=== PATIENT | male | born 1950 | race Caucasian/White ===

== ENCOUNTER 2016-06-01 02:41 | Inpatient (IN) | payer OTHER ==
[2016-06-01] MEDS ORDERED: ZOFRAN IV PRN (06:03)
[2016-06-01] MEDS ORDERED: TYLENOL PO PRN (06:03)
[2016-06-01 06:12] LABS: MANUAL DIFF NEEDED? NO
[2016-06-01 06:26] LABS: INR 1.07; PROTIME 11.4 Seconds (9.2-11.7); PTT 27.2 Seconds (22.0-36.0)
[2016-06-01 06:32] LABS: URINE CULTURE NEEDED? NO; URINE MICRO REVIEW NEEDED? NO; URINE SOURCE CATH
[2016-06-01 06:34] LABS: BASO% 0.3 % (0.0-0.8); EOS# 0.09 X1000 (0.0-0.7); EOS% 0.8 % (0.0-10.0); HEMATOCRIT 30.6 % (42.0-52.0); HEMOGLOBIN 10.1 g/dL (14.0-18.0); LYMPH# 1.35 X1000 (1.2-3.4); LYMPH% 12.3 % (20.5-51.1); MONO# 0.69 X1000 (0.11-0.59); MONO% 6.3 % (1.7-9.3); MPV 9.8 FL (7.4-10.4); NEUT% 80.3 % (42.2-75.2); PLT 305 X1000 (130-400); RBC 3.06 XMIL (4.7-6.1)
[2016-06-01 06:43] LABS: BILIRUBIN URINE NEGATIVE (NEGATIVE); BLOOD URINE NEGATIVE (NEGATIVE); COLOR STRAW; GLUCOSE URINE 100 mg/dL (NEGATIVE); LEUKOCYTES URINE NEGATIVE (NEGATIVE); NITRITE URINE NEGATIVE (NEGATIVE); PH URINE 7.5; PROTEIN URINE 100 mg/dL (NEGATIVE); SP GRAVITY URINE 1.007; TURBIDITY URINE CLEAR (CLEAR); UROBILINOGEN URINE NORMAL (NORMAL)
[2016-06-01 06:44] LABS: UR EPITHELIAL CELLS <10 /HPF (<10); URINE BACTERIA NEGATIVE /HPF; URINE RBC <10 /HPF (<10); URINE WBC <10 /HPF (<10)
--- NOTE | 2016-06-01 06:44 | EKG Report ---
Test Performed on : 06/01/2016 06:18:01 AM Test Reason : CP,SOB,Elevated Troponin Blood Pressure : / mmHG Vent. Rate : 079 BPM Atrial Rate : 079 BPM P-R Int : 152 ms QRS Dur : 096 ms QT Int : 390 ms P-R-T Axes : 060 035 069 degrees QTc Int : 447 ms Normal sinus rhythm. Possible Left atrial enlargement Nonspecific T wave abnormality Abnormal ECG When compared with ECG of 28-JAN-2015 12:00, Nonspecific T wave abnormality no longer evident in Inferior leads Nonspecific T wave abnormality has replaced inverted T waves in Anterolateral leads Confirmed by Khurram Weaver MD ([id number]) on 06/02/2016 9:38:19 PM
[2016-06-01 06:52] LABS: ALBUMIN 3.9 g/dL (3.5-5.0); POTASSIUM 4.7 mmol/L (3.5-5.1)
[2016-06-01 07:25] LABS: HEMOGLOBIN A1C 5.4 % (4.8-6.0)
--- NOTE | 2016-06-01 07:43 | Diag Imaging Result Document ---
PROCEDURE NAME: CHEST-PORTABLE - 06/01/2016 PORTABLE CHEST X-RAY, 06/01/2016: COMPARISON: 01/31/2015. FINDINGS: Lungs are hyperexpanded today. There may be COPD. There is cardiomegaly and pulmonary vascular congestion. There is some fine interstitial infiltrate compatible with pulmonary edema. IMPRESSION: Pulmonary edema.
[2016-06-01] MEDS: VITAMIN D PO SCH (08:02)
[2016-06-01] MEDS: PRINIVIL PO SCH (08:03)
[2016-06-01] MEDS: VITAMIN C PO SCH (08:03)
[2016-06-01] MEDS: VITAMIN B-12 PO SCH (08:04)
[2016-06-01] MEDS: FISH OIL CONCENTRATE PO SCH (08:04)
[2016-06-01] MEDS: HEPARIN SUBQ SCH ×2 (08:04→20:05)
[2016-06-01] MEDS: FERROUS SULFATE PO SCH (08:04)
[2016-06-01] MEDS: PRILOSEC PO SCH (08:04)
[2016-06-01] MEDS: PHOSLO PO SCH ×3 (08:36→17:20)
[2016-06-01] MEDS: LEXAPRO PO SCH ×2 (08:36→20:06)
[2016-06-01] MEDS ORDERED: HYDROCHLOROTHIAZIDE 12.5 MG PO SCH (09:00)
[2016-06-01] MEDS ORDERED: LEXAPRO PO SCH (09:00)
[2016-06-01] MEDS ORDERED: NS 2,000 ML MISC PRN (10:58)
[2016-06-01] MEDS ORDERED: HEPARIN IV PRN (10:58)
[2016-06-01] MEDS ORDERED: TIGHT: 0.2 ML/HR MISC PRN (10:58)
[2016-06-01] MEDS ORDERED: NS 2,000 ML ONE (11:47)
[2016-06-01] MEDS ORDERED: HEPARIN ONE (11:47)
--- NOTE | 2016-06-01 12:28 | Diag Imaging Result Document ---
PROCEDURE NAME: LUNG SCAN / VQ - 06/01/2016 PULMONARY VENTILATION-PERFUSION SCAN: COMPARISON: Chest x-ray, 06/01/2016. FINDINGS: 38.3 mCi of DTPA was used for inhalation. 5 mCi of MAA was used for injection. There is normal localization of the radiotracers. IMPRESSION: Negative exam.
--- NOTE | 2016-06-01 12:50 | HISTORY AND PHYSICAL ---
PRIMARY CARE PHYSICIAN: Dr. Mccollum REELING OPERATOR: Dr. Pugh CHIEF COMPLAINT: Shortness of breath. HISTORY OF PRESENT ILLNESS: Mr. Urrutia is a 66-year-old male with a history of end stage renal disease followed by Dr. Pugh. He receives dialysis on Tuesdays and only. He also has a history of diabetes mellitus type 2, hypertension, hyperlipidemia, gastroesophageal reflux disease, DVT and problems with blood clots in his fistula. He presented to the ER at [facility] on 05/31/2016 at 2300 with complaint of sudden onset of shortness of breath. The patient states that during the day, he felt okay other than that morning when he woke up he did not feel as good as he normally does. The patient states this is not uncommon due to his end stage renal disease. The patient did report, though, that he was out at [employer] all day walking around and was very tired and sore secondary to this. He denies any recent medication changes. He reports a sudden onset of shortness of breath with diaphoresis. He denied any chest pain but did report it felt like someone was sitting on his chest, as though he could not take a big enough breath. He did report a sudden onset of a cough with this shortness of breath as well. It was nonproductive, though this has since subsided since arriving to [facility]. At the ER at [facility], they did report the patient arrived in moderate distress with dyspnea. Initial vital signs were heart rate of 72, respirations 32, blood pressure 217/99 with oxygen saturation of 96%. I did do a chest x-ray which showed interstitial pulmonary edema. EKG at [facility] showed sinus tachycardia with a possible left atrial enlargement with a rate of 101, QTC was 495. His ProBNP was elevated to 18,632. They did treat him with 80 mg of Lasix IV, sublingual nitroglycerin and 20 mg of labetalol IV. Dr. Flores, the ER physician at [facility], did contact Dr. Pugh and notified him of the patient's condition, and Dr. Pugh requested the patient be admitted at [facility] for further treatment and evaluation. Upon my assessment once the patient had arrived at [facility], he seems to be doing much better. The patient was lying flat in the bed with his head mildly elevated and was not in any respiratory distress. He reported no feeling of shortness of breath at this time as well as no chest pain. He did report that he feels much better. At this time, he denies any headache, dizziness, chest pain, shortness of breath, abdominal pain. He did report earlier when he had his initial episode of shortness of breath, he was nauseated. He denies any vomiting, diarrhea or constipation. Denies any bloody or dark-colored stools. The patient does report that he occasionally has dysuria and has some problems with frequent urinary tract infections, though has not had one in the past few weeks. He denies any pain, swelling, numbness or tingling in extremities. The patient reports that he does still produce some urine. The patient has been placed for inpatient admission, and we will obtain a consult with Dr. Pugh. REVIEW OF SYSTEMS: A 14-point review of systems was conducted with the patient, and all were negative except for pertinent positives mentioned in the above HPI. PAST MEDICAL HISTORY: 1. End stage renal disease on hemodialysis on Tuesdays and . 2. Diabetes mellitus type 2, insulin dependent. 3. Hypertension. 4. Hyperlipidemia. 5. Gastroesophageal reflux disease. 6. Depression. 7. Osteoarthritis of his right hip. 8. Normocytic anemia. 9. Peripheral artery disease. 10.History of DVT and frequent problems with reported blood clots in his fistula. PAST SURGICAL HISTORY: 1. Placement of a left AV fistula. 2. A total of 3 surgeries for a right hip fracture, one for hardware placement, a second for hardware removal and then a third for a total right hip replacement. SOCIAL HISTORY: The patient reports that he is a former smoker. He quit smoking in 1999. He did smoke 1 to 2 packs per day for approximately 20 years. He denies any alcohol or illicit drug use. He is to his of 46 years who was at bedside at the time of my examination. FAMILY HISTORY: Positive for his father having mesothelioma for which he from. His mother is still living and has a history of heart disease and macular degeneration. He has no siblings. ALLERGIES: The patient reports no known allergies. HOME MEDICATIONS: 1. Vitamin C with florencio hips 1000 mg p.o. daily. 2. Vitamin B12 1000 mg p.o. daily. 3. Vitamin D3 1000 units p.o. daily. 4. Fish oil 1200 mg p.o. daily. 5. Lexapro 20 mg p.o. b.i.d. 6. Ferrous sulfate 325 mg p.o. daily. 7. Lantus 22 units subcutaneously nightly at bedtime. 8. Omeprazole 40 mg p.o. daily. 9. PhosLo 1334 mg p.o. before meals. 10.Lisinopril 40 mg p.o. daily. 11.Simvastatin 40 mg p.o. nightly at bedtime. 12.Hytrin 10 mg p.o. nightly at bedtime. 13.Hydrochlorothiazide 12.5 mg p.o. daily. DIAGNOSTIC DATA: The following laboratory results were obtained in the ER at [facility] prior to the patient's arrival at approximately 2330. White blood cell count was 14, hemoglobin 10, hematocrit 31, platelet count 314. D-dimer was 790. Sodium was 139, potassium 4.8, chloride 94, bicarb 25, glucose 141, BUN was 59, creatinine 9.2, GFR of 6. Liver function tests were within normal limits. Calcium 9.2, albumin 4.2. ProBNP was 18,632. CK was 79, CKMB was 2.84, troponin was 0.049. We did repeat an EKG upon the patient's arrival which showed normal sinus rhythm with a possible left atrial enlargement and a nonspecific T wave abnormality at a rate of 79, QTC was 447. Chest x-ray does show pulmonary vascular congestion, though we are awaiting the official radiology overread. Repeat labs upon the patient's arrival, white blood cell count has reduced to 10.9. PT is 11.4, INR is 1.07, PTT is 27.2. Urinalysis obtained via cath was positive for protein and glucose, negative for blood, nitrites, leukocytes, white blood cells or bacteria. PHYSICAL EXAMINATION: VITAL SIGNS: Temperature is 97.4, heart rate 76, respirations 20, blood pressure 176/79, oxygen saturation is 95% on nasal cannula at 3 L. GENERAL: Mr. Urrutia is a well-nourished, well-developed, pleasant 66-year-old male who is resting in the inpatient bed with no acute distress, was awake and alert and able to answer all questions appropriately. HEENT: Head is atraumatic and normocephalic. Pupils are equal, round and reactive to light, were 3 mm bilaterally and brisk. Conjunctivae were slightly pale. Oral mucosa is moist. Oropharynx is clear. NECK: Supple. Trachea is midline. No JVD noted. No hepatojugular reflux noted. No carotic bruits noted upon auscultation bilaterally. CARDIOVASCULAR: The patient has normal S1 and S2. There is a slight murmur noted, though no other gallops, clicks or rubs identified. PULMONARY: The patient has symmetrical chest expansion bilaterally. Lung sounds in bilateral full ramirez are diminished, and the patient has crackles noted in bilateral lower lung ramirez. ABDOMEN: Soft, though does appear to be slightly firm/tight feeling. The patient reports it is not any more distended than his normal, though it does appear to have some distention present. Bowel sounds were present in all 4 quadrants and were normoactive. The patient denied any tenderness upon palpation. EXTREMITIES: No cyanosis, clubbing or edema noted. Pulse, motor and sensory were intact in all extremities as well. Pedal pulses were 3+ bilaterally. INTEGUMENTARY: The patient's skin is pink, warm, dry and intact. No lesions or sores noted. NEUROLOGICAL: The patient is alert and oriented to person, place, time and situation. Cranial nerves II through XII are grossly intact. IMPRESSION: 1. Fluid volume overload. For this, the patient was initially given 80 mg of Lasix in the ER at [facility]. Since that time, he has had a measured output of approximately 290 mL since his arrival to [facility], though the patient reports that he put out 300 mL prior to his arrival here. He is feeling much better and is not in any respiratory distress at this time and is maintaining adequate oxygen saturations. We will wait for Dr. Pugh to evaluate the patient and await his further recommendations for treatment. We will continue to follow this closely. 2. Pulmonary edema. This is likely secondary to his volume overload. We will continue with treatment as number 1 and continue to follow. 3. End stage renal disease on hemodialysis. Dr. Pugh has been consulted as previously mentioned, and we are awaiting his evaluation. We will continue to follow. 4. Elevated D-dimer. We have placed a VQ lung scan order in for this morning and will await those results and continue to follow as well. 5. Hypertension. We will continue with the patient's medication of lisinopril 40 mg p.o. daily. 6. Diabetes mellitus type 2. Continue with his home medication of Lantus 22 units subcutaneously nightly at bedtime and will do fingerstick blood sugars morning and night. 7. Hyperlipidemia. We will continue with his Zocor 40 mg p.o. nightly at bedtime. 8. Gastroesophageal reflux disease. For this as well as GI prophylaxis, we will continue with omeprazole 40 mg p.o. daily. The patient will be placed on the Medical Floor with telemetry. He will have vital signs q.4. DVT prophylaxis will be provided with heparin 5000 units subcutaneously q.12 hours. We will do strict intake and output q.8. He will be on a diabetic diet. The patient denies any previous history of congestive heart failure, though given his reported clinical symptoms, we have placed an order for an echocardiogram to be performed to rule out any further cardiac involvement. We will also do a series of cardiac enzymes as well. The patient's troponin was elevated, though this could likely be secondary to his renal function, though we will continue to trend these and monitor this closely. Further orders and recommendations pending hospital course, diagnostic studies and physician evaluation. Dictated by LUL Braswell for Michele Cyr MD
--- NOTE | 2016-06-01 15:42 | ECHO REPORT ---
ORDER DATE: 06/01/2016 INDICATION: Pulmonary edema. Diabetes. Hypertension. End-stage renal disease. FINDINGS: 1. Right atrium is normal in size. 2. Mild to moderate tricuspid regurgitation. RV systolic pressure of 58. 3. Normal RV size and systolic function. 4. Trace pulmonic insufficiency. 5. Moderate left atrial enlargement at 5.3 cm. 6. No mitral valve prolapse. Mild mitral regurgitation. 7. Normal LV size, end-diastolic dimension of 4.8. Mild left ventricular hypertrophy with a posterior and interventricular septal wall thickness of 1.4 cm each. Normal LV systolic function. Calculated EF is 60% with normal wall motion. 8. Aortic valve opens well and appears trileaflet. No evidence of stenosis or insufficiency. 9. Aorta appears normal in visualized segments. 10. No pericardial effusion seen.
[2016-06-01] MEDS: APRESOLINE PO SCH ×2 (17:10→20:05)
--- NOTE | 2016-06-01 18:05 | CONSULTATION ---
DATE OF CONSULTATION: 06/01/2016 REASON FOR CONSULTATION: ESRD management, fluid volume status. CONSULTING PHYSICIAN: Dr. Crump. HISTORY OF PRESENT ILLNESS: This is a 66-year-old gentleman well known to our service for ESRD management who routinely dialyzes 2 days a week on Tuesdays and at the [facility]. He has been on this schedule for many years. He has never had issues with fluid volumes before and routinely has adequate urine output along with adequately controlled lab values. The patient states that on the day of admission he had a rather sudden onset of shortness of breath and presented to [facility] emergency room. He was found to be in pulmonary edema was given some Lasix and transferred over to [facility] for further workup and treatment. He states that he never really had any increase in urine output. His blood pressure was quite high on admission. He was started on labetalol and he states that after dose of that his urine output picked up appreciably. He states that today he has some shortness of breath but really no swelling. He states that he never monitors his fluid intake and has never had issues with this before. He denies any current chest pain, any current shortness of breath, any dizziness, headache, change in appetite, nausea, vomiting, change in bowel or bladder. PAST MEDICAL HISTORY: End-stage renal disease on hemodialysis Wednesday, schedule, insulin- dependent diabetes, hypertension, dyslipidemia, allergic rhinitis, GERD, anemia secondary to ESRD, hyperparathyroidism and hyperphosphatemia. PAST SURGICAL HISTORY: Previous hip fracture with percutaneous pinning, he has tunneled dialysis catheter previously, he has AV fistula. ALLERGIES: No known drug allergies. HOME MEDICATIONS: Loratadine, fish oil, vitamin C, iron, vitamin B12, vitamin D3, Hytrin, omeprazole, calcium carbonate D3, Zocor, Prinivil, Lantus, NovoLog, Cefzil, Lexapro, calcium acetate, hydrochlorothiazide. FAMILY HISTORY: Noncontributory. SOCIAL HISTORY: He is , he has an attentive . He is a previous smoker. No ETOH or illicit drug use. REVIEW OF SYSTEMS: With pertinent positives noted above in the HPI. EXAM: Vital Signs: Temperature 98.2 degrees, pulse 80, respiratory rate 18, blood pressure 160/80, intake not measured, output 245 mL. General: This is a middle-aged gentleman resting in bed. He is awake, alert. He is in no acute distress. HEENT: Normocephalic atraumatic. Oral mucosa is moist. SOILA, EOMI. Neck: Supple. There is perhaps slight JVD in a reclined position. Cardiovascular: Reveals a regular rate and rhythm with a murmur. Pulmonary: He has equal excursion. He has no increased work of breathing. Abdomen: Distended and soft with positive bowel sounds. : Not inspected. He is voiding. Extremities: There is no pretibial edema. No clubbing or cyanosis. Extremities are warm with positive pulses. Integumentary : Skin is warm and dry. No rash or lesion. Neuro: Grossly nonfocal. LAB DATA: WBC of 10.9, hemoglobin 10.1, platelets 305,000. Sodium 137, potassium 4.7, CO2 21, BUN 61, creatinine 8.8, phosphorus 7, calcium 9.0 and albumin 3.9. RADIOLOGY: Chest x-ray with pulmonary edema. ASSESSMENT AND PLAN: 1. End-stage renal disease management. Will plan to dialyze him today secondary to the pulmonary edema noted on chest x-ray, shortness of breath. Is unclear whether this is secondary to fluid volumes or pulmonary hypertension or diastolic dysfunction. He does have an echocardiogram that is pending resulting. The patient understands will plan to dialyze him today likely tomorrow, depending on what his echocardiogram results are he may have to transition to a 3 day a week dialysis schedule. The patient understands this and is in agreement. 2. Electrolytes, acid-base balance, anemia. These are all stable. 3. Fluid volume. On clinical exam he really does not appear grossly fluid overloaded except for some distended abdomen that he is this is there chronically. 4. Hypertension may be contributing to his pulmonary edema. Continue with current therapy. Seen, data reviewed, discussed with Hesham Newell on 06/01/15. I agree with the above assessment and plan of care. rg Dictated by LUL Gracia for Horacio Pugh MD [facility]
[2016-06-01] MEDS ORDERED: LANTUS SUBQ SCH (21:00)
[2016-06-01] MEDS ORDERED: HYTRIN PO SCH (21:00)
[2016-06-01] MEDS ORDERED: ZOCOR PO SCH (21:00)
[2016-06-02] MEDS: APRESOLINE PO SCH ×2 (05:56→12:31)
[2016-06-02] MEDS: PHOSLO PO SCH ×3 (05:56→10:31)
[2016-06-02] MEDS ORDERED: HEPARIN ONE (07:59)
[2016-06-02] MEDS ORDERED: NS 2,000 ML ONE (07:59)
[2016-06-02] MEDS: PRINIVIL PO SCH (08:54)
[2016-06-02] MEDS: VITAMIN B-12 PO SCH (08:55)
[2016-06-02] MEDS: FERROUS SULFATE PO SCH (08:55)
[2016-06-02] MEDS: PRILOSEC PO SCH (08:56)
[2016-06-02] MEDS: VITAMIN D PO SCH (08:56)
[2016-06-02] MEDS: HEPARIN SUBQ SCH (08:57)
[2016-06-02] MEDS: FISH OIL CONCENTRATE PO SCH (08:57)
[2016-06-02] MEDS: VITAMIN C PO SCH (08:57)
[2016-06-02] MEDS: LEXAPRO PO SCH (08:58)
--- NOTE | 2016-06-02 10:25 | PROGRESS NOTE ---
DATE: 06/02/2016 SUBJECTIVE: Mr. Urrutia is breathing better. Feeling much better. Was eating almost all of his breakfast. No trouble breathing at this time. No chest pain. OBJECTIVE: Vital signs: Temperature 98.8 degrees, remains afebrile, pulse 86, respirations 18, blood pressure 135/58. HEENT: Pupils are equal, round. Neck: CVP less than 6 cm. Lungs: Clear in all lung ramirez. Cardiovascular: Regular rhythm and rate without murmur or S3. Abdomen: Soft. Skin: Warm and dry. Intake and output: Good urine output, 4500 mL. LAB: White count 10,990, hematocrit 30, platelet count 305,000. Blood sugar 240 and 108. Echocardiogram done yesterday: Right atrium normal size. Mild to moderate tricuspid regurgitation. RV systolic pressure is 58. Normal right ventricular size and systolic function. Trace pulmonic insufficiency. Mild left atrial enlargement, 5.3 cm. No mitral valve prolapse. Mild mitral regurgitation. Normal left ventricular size. Left ventricular hypertrophy with posterior intraventricular septal wall thickness 1.4 cm each. Normal LV systolic function. Calculated EF was 60%. No pericardial effusion. Aortic valve unremarkable. V/Q scan done on 06/01: Negative exam. ASSESSMENT AND PLAN: 1. Dr. Pugh was consulted. Appears to have end-stage renal disease. Management, planned to dialyze him. Yesterday was dialyzed secondary to pulmonary edema on chest x-ray and shortness of breath. Unclear whether secondary to fluid volume of pulmonary hypertension, diastolic dysfunction. He does have an echocardiogram that shows normal left ventricular function. 2. Electrolytes, acid-base balance. Stable. 3. Volume status. Appears better. 4. Hypertension. Blood pressure controlled. Note the V/Q scan was negative and he has good left ventricular performance. So discuss with Dr. Pugh and see what the plan is. I am sure he will need more dialysis. I think we need to schedule him and set him up for outpatient.
[2016-06-02 15:36] VITALS: BP 163/62
--- NOTE | 2016-06-02 16:06 | CONSULTATION ---
DATE OF CONSULTATION: 06/02/2016 INDICATION: Shortness of breath. HISTORY OF PRESENT ILLNESS: Mr. Urrutia is a 66-year-old white male with a history of end-stage renal disease followed by Dr. Pugh. He receives hemodialysis on Tuesdays and only. He had a relatively acute onset of shortness of breath that began Wednesday. Prior to that he was in his usual state of health. He reports waking up, feeling well and had no difficulty on Wednesday when he was out watching some ball games. He did quite a bit walking that day without any difficulties. No recent fevers. No coughs. He denies any episodes of orthopnea. He reported that he got up from a couch, walked around a little bit in the house and when he got back he got extremely short of breath and had some heaviness in his chest. This did not resolve and he since reported to the emergency room. He was seen. EKG was unremarkable showing sinus rhythm. No evidence of ischemic changes. His cardiac enzymes have been normal. He did have evidence for pulmonary edema on his chest x-ray and he was set up for hemodialysis. Reportedly he was at his dry weight here but he has had his dry weight dropped and has had symptomatic improvement. The patient has not had these episodes before. PAST MEDICAL HISTORY: 1. Significant for coronary disease. He had a cardiac cath performed in [address] Mon[place]. At that time he had a normal left main. Left anterior descending had moderate diffuse disease. Left circumflex had moderate diffuse disease. Right coronary had moderate diffuse disease. The EF on that study was 50-60 with a LVEDP of 21. 2. End-stage renal disease with hemodialysis on Tuesdays and . Followed by Dr. Pugh. 3. Type 2 diabetes. 4. Hypertension. 5. Hyperlipidemia. 6. Reflux disease. 7. Osteoarthritis. 8. Peripheral arterial disease. FAMILY HISTORY: Significant for hypertension. SOCIAL HISTORY: He used to smoke 1-2 packs per day for around 20 years. He quit in 1999. He denies any alcohol or illicit drugs. REVIEW OF SYSTEMS: A 10 system review of systems is negative except for those things mentioned in HPI. PHYSICAL EXAMINATION: The patient is afebrile. Heart rate of 84, blood pressure 163/62.General: He is in no acute distress. HEENT: Oropharynx is moist. He has normal dentition. His eye examination shows pink conjunctivae, white sclerae. Neck: Examination shows no obvious thyromegaly or thyroid tenderness. Cardiovascular: He is in a regular rate and rhythm. He has no obvious murmurs. He does have a prominent AV fistula murmur that is heard throughout the precordium. He has no lower extremity edema. He has warm and well perfused lower extremities. Chest: Exam sounds clear to auscultation bilaterally. He has no increased work of breathing. Abdomen: Soft, nontender, nondistended. He has no obvious organomegaly. Skin Exam: Warm and dry throughout without any rashes. Neurological: Moving all extremities well. Cranial nerves 2- 12 are intact without any sensation deficits. Psychiatric: Alert, oriented, pleasant. He has normal mood and affect. Echocardiogram from yesterday shows moderate TR, moderate left atrial enlargement. Mild bordering on moderate left ventricular hypertrophy with an EF of 60%. Normal wall motion. His chest x-ray here demonstrated pulmonary edema. He had a V/Q scan performed as well that demonstrated a negative study. He had an EKG performed that showed sinus rhythm. EKG shows sinus rhythm, 79 beats per minute. No evidence of ischemic changes. No evidence of old infarct. His laboratory data shows white count of 10.9, hematocrit is 30, platelet count is 305,000. His INR is 1.07. Sodium 137, potassium 4.7. BUN is 61, creatinine is 8.8. Cardiac enzymes were negative times multiple sets with normal CK. ASSESSMENT: 1. Pulmonary edema possibly nephrogenic or cardiogenic in etiology. 2. History of moderate coronary disease previously by cardiac catheterization. PLAN: Patient is symptomatically better with adjustment of his dialysis. We will plan on myocardial perfusion imaging but this can be performed as an outpatient. I will make arrangements for him to have that study done hopefully this Wednesday. We will follow up on the results of that. Further recommendations to follow as an outpatient. The patient is comfortable with that as is the rest of the medical team.
--- NOTE | 2016-06-02 17:30 | PROGRESS NOTE ---
DATE: 06/02/2016 TIMES SEEN: 0815. SUBJECTIVE: Patient is sitting up in bed. He states that his breathing has significantly improved from previous. OBJECTIVE: Vital Signs: Temperature 98.1 degrees, pulse 84, respiratory rate 18, blood pressure 163/62. Input and output: Intake 790 mL. Output 4.5 L. General: This is a middle-aged gentleman sitting up in bed. Awake alert, oriented. No acute distress. HEENT : Normocephalic, atraumatic. Oral mucosa moist. SOILA. Neck: Supple. No JVD. Cardiovascular : Regular rate and rhythm. Systolic murmur. Pulmonary: Equal excursion. He has no increased work of breathing. He is clear bilaterally on room air. Abdomen: Soft, with positive bowel sounds. : Not inspected. He continues to void. Extremities: No pretibial edema. No clubbing, cyanosis. He is ambulatory. Integumentary: Skin is warm and dry without rash or lesion. LABORATORY DATA: I have no new labs this morning. ASSESSMENT AND PLAN: 1. End-stage renal disease management. The plan was to dialyze him again today to optimize his fluid balance. We discussed with the patient that he may have to increase his dialysis to 3 times a week. Patient is in agreement. 2. Electrolytes, acid-base balance. These are all stable yesterday prior to dialysis. If he is in the hospital in the morning, we will plan a labs and appropriate dialysis bath. 3. Fluid volume. He is much improved today. 4. Hypertension. Controlled. Seen, data reviewed, discussed with Hesham Newell on 06/02/16. I agree with the above assessment and plan of care. rg Dictated by LUL Gracia for Horacio Pugh MD [facility]ITAL[facility]
--- NOTE | 2016-06-02 18:14 | DISCHARGE SUMMARY ---
ADMISSION DATE: 06/01/2016 DISCHARGE DATE: 06/02/2016 HOSPITAL COURSE: This is a 66-year-old who is followed by Dr. Pugh for chronic kidney disease. He has a history of end-stage renal disease and receives dialysis Tuesdays, , and Saturdays. History of diabetes mellitus type 2, hypertension, hyperlipidemia, gastroesophageal reflux disease, DVT, problem with blood clots and a fistula in the past. He presented to the emergency room at [facility] on 05/31/2016 at 23:00 complaining of sudden onset of shortness of breath. The patient states that during the day he felt okay. In the morning he awoke and had a little shortness of breath. He woke up and did not feel as good as he normally does. This is not uncommon by his report because of end-stage renal disease. He did report that [place] [employer] [place]. He was very tired and sore secondary to the day before. He denies any recent medication changes but he developed sudden onset of shortness of breath and diaphoresis. He denied any chest pain but did report that he felt like something was sitting on his chest and really could not take a deep enough breath. He did report sudden onset of cough and shortness of breath, and so came to the emergency room. On arrival to the emergency room, he is in moderate distress with dyspnea. Vital signs were pulse 72, respirations 32, blood pressure 217/99, O2 saturation 96%. Chest x-ray showed interstitial pulmonary edema. EKG from [facility] shows tachycardia suggestive of left atrial enlargement, rate was 101, QTc was 495. His proBNP was elevated at 18,000. I gave him 80 mg of Lasix, sublingual nitroglycerin, 20 mg labetalol and he was sent here to [facility]. On arrival to [facility] he seemed to be doing much better. He was lying flat on the bed and was mildly elevated. He was not in any respiratory distress. He felt like he had mild volume overload. Dr. Pugh did dialyze him. It felt like his volume status was dry weight but still a little concerned about what happened, whether it was just a little bit of diastolic dysfunction or whether he had some type of mild flash edema. He feels much better and wants to go home. Dr. Salvador Lind saw him and will plan on doing an outpatient nuclear GXT, and we will continue his current medications. We will have him get some ambulatory blood pressures. Of course he will follow up with Dr. Pugh as well.
[2016-06-03 11:09] LABS: HEPATITIS PROFILE ACUTE SEE COMMENTS (())
== END 2016-06-02 16:53 | disposition home or self-care (01) | DRG 640 ==
LOC: 4N 02:41
PROVIDERS: ATTEND Emergency Medicine
PROC: 5A1D00Z (ICD-10-PCS; principal; 2016-06-01)
DX: E87.70 Fluid overload, unspecified (principal); N18.6 End stage renal disease; I12.0 Hypertensive chronic kidney disease with stage 5 chronic kidney disease or end stage renal disease; E11.22 Type 2 diabetes mellitus with diabetic chronic kidney disease; Z99.2 Dependence on renal dialysis; E78.5 Hyperlipidemia, unspecified; K21.9 Gastro-esophageal reflux disease without esophagitis; I25.10 Atherosclerotic heart disease of native coronary artery without angina pectoris; F32.9 Major depressive disorder, single episode, unspecified; R79.1 Abnormal coagulation profile; E21.3 Hyperparathyroidism, unspecified; E83.39 Other disorders of phosphorus metabolism; D63.1 Anemia in chronic kidney disease; J30.9 Allergic rhinitis, unspecified; M16.11 Unilateral primary osteoarthritis, right hip; E11.51 Type 2 diabetes mellitus with diabetic peripheral angiopathy without gangrene; Z96.641 Presence of right artificial hip joint; Z79.899 Other long term (current) drug therapy; Z79.4 Long term (current) use of insulin; Z86.718 Personal history of other venous thrombosis and embolism; Z87.891 Personal history of nicotine dependence; Z80.1 Family history of malignant neoplasm of trachea, bronchus and lung; Z82.49 Family history of ischemic heart disease and other diseases of the circulatory system
CPT/HCPCS: 71010; 78582; 80069; 80074; 81001; 82550; 82948; 83036; 84484; 85025; 85610; 85730; 93005; 93010; 93306; 94761; A9539; A9540; J1644; J2405; J7030

== ENCOUNTER 2016-08-03 13:34 | Inpatient (IN) ==
[2016-08-03 16:09] LABS: MANUAL DIFF NEEDED? NO
[2016-08-03 16:12] LABS: BASO% 0.4 % (0.0-0.8); EOS# 0.21 X1000 (0.0-0.7); EOS% 2.6 % (0.0-10.0); HEMATOCRIT 30.8 % (42.0-52.0); HEMOGLOBIN 10.5 g/dL (14.0-18.0); IMM GRAN# 0.02 X1000 (0.0-0.04); IMM GRAN% 0.3 % (0.0-0.5); LYMPH# 1.28 X1000 (1.2-3.4); LYMPH% 16.1 % (20.5-51.1); MCH 32.8 PG (27-31); MCHC 34.1 g/dL (33-37); MCV 96.3 FL (81-99); MONO# 0.56 X1000 (0.11-0.59); MPV 9.5 FL (7.4-10.4); NEUT% 73.6 % (42.2-75.2); PLT 275 X1000 (130-400)
[2016-08-03 16:48] LABS: ALBUMIN 3.9 g/dL (3.5-5.0); CALCIUM 9.1 mg/dL (8.8-10.2); POTASSIUM 5.6 mmol/L (3.5-5.1); TOTAL BILIRUBIN 0.25 mg/dL (0.20-1.00); TOTAL PROTEIN 6.9 g/dL (6.3-8.3)
[2016-08-03] MEDS ORDERED: APRESOLINE IV ONE (17:48)
--- NOTE | 2016-08-03 17:54 | PROVIDER DOCUMENTATION ---
This chart was entered by Dorene Jones Scribe, acting as scribe for Ricardo Simms MD. HPI-General Adult - General Chief Complaint: Altered Mental Status Stated Complaint: DISORIENTED Time Seen by Provider: 08/03/16 15:11 Source: patient, family Allergies/Adverse Reactions: Patient Allergies Allergy/AdvReac Type Severity Reaction Status Date / Time No Known Allergies Allergy Verified 08/03/16 15:59 Home Medications: Home Medication List Medication Instructions Recorded Confirmed Last Taken Type Ascorbic Acid [Vitamin C] 500 mg PO DAILY 06/14/14 08/03/16 08/03/16 07:00 History Fish Oil/Dha/Epa [Fish Oil 1,200 1 each PO DAILY 06/14/14 08/03/16 08/03/16 07: 00 History mg Fish Oil] Insulin Glargine [Lantus] 22 unit SUBQ QHS 06/14/14 08/03/16 08/02/16 20:00 History Iron,Carbonyl [Iron Chews] 65 mg PO DAILY 06/14/14 08/03/16 08/03/16 07:00 History LISINOpril [Prinivil] 40 mg PO DAILY 06/14/14 08/03/16 08/03/16 07:00 History Omeprazole 40 mg PO DAILY 06/14/14 08/03/16 08/03/16 07:00 History SIMVAstatin [Zocor] 40 mg PO QHS 06/14/14 08/03/16 08/02/16 20:00 History Terazosin [Hytrin] 10 mg PO HS 06/14/14 08/03/16 08/02/16 20:00 History Calcium Acetate 1,334 mg PO AC 06/01/16 08/03/16 08/03/16 07:00 History Cholecalciferol (Vitamin D3) 1,000 unit PO DAILY 06/01/16 08/03/16 08/03/16 07: 00 History [Vitamin D3] Cyanocobalamin (Vitamin B-12) 1,000 mcg PO DAILY 06/01/16 08/03/16 08/03/16 07: 00 History [Vitamin B-12] Escitalopram [Lexapro] 20 mg PO BID 06/01/16 08/03/16 08/03/16 07:00 History Ferrous Sulfate 325 mg PO DAILY 06/01/16 08/03/16 08/03/16 07:00 History Hydrochlorothiazide 12.5 mg PO DAILY 06/01/16 08/03/16 08/03/16 07:00 History Vian-3/Dha/Epa/Fish Oil [Fish Oil 1 each PO DAILY 06/01/16 08/03/16 08/03/16 07 :00 History EC 1,200 mg Softgel] Guaifenesin/Dm [Bidex Dm] 1 each PO BID 08/03/16 08/03/16 08/03/16 07:00 History - History of Present Illness -Gen Adult Nature of Presenting Problems: Pt is 66 y/o M presents to the ED with weakness. Pt states did not receive his dialysis. Pt states has not had dialysis since Wednesday. Pt states N and V. Pt denies F. Pt states talked to Dr. Parker about weakness and Dr. Parker stated go to the ED Location of Pain/Injury: reports: generalized Pain Radiation: reports: no radiation Quality of Pain: reports: aching Severity: reports: mild Onset/Duration: reports: this morning Timing: reports: still present, intermittent Context/Activities at Onset: reports: light activity Modifying Factors: improves with: nothing Associated Symptoms: reports: nausea, vomiting, weakness. denies: anxiety, arm pain, back/neck pain, chest pain, constipation, cough, diaphoresis, diarrhea, dizziness, EENT symptoms, fatigue, fever/chills, genitourinary problems, headaches, heartburn, joint pain, loss of appetite, malaise, muscle aches, sinus congestion/drainage, rash, seizure, shortness of breath, sensory/motor loss, pain with inspiration, swelling/mass in abdomen, syncope, trouble walking Similar Symptoms Previously?: Yes Recently seen or treated by another doctor?: No Review of Systems - Adult - REVIEW OF SYSTEMS - ADULT Constitutional: reports: no symptoms reported. denies: chills, fever Eyes: reports: no symptoms reported. denies: discharge, blurred vision Ears, Nose, Mouth & Throat: reports: no symptoms reported. denies: ear pain, sinus problem Cardiovascular: reports: no symptoms reported. denies: chest pain, irregular heart rate Respiratory: reports: no symptoms reported Gastrointestinal: reports: nausea, vomiting. denies: abdominal pain, diarrhea Genitourinary: reports: no symptoms reported Musculoskeletal: reports: muscle weakness. denies: bone pain, joint pain, neck pain Integumentary: reports: no symptoms reported Neurological: reports: no symptoms reported Psychiatric: reports: no symptoms reported Endocrine: reports: no symptoms reported Hematologic/Lymphatic: reports: no symptoms reported Allergic/Immunologic: reports: no symptoms reported All Other Systems: Reviewed and Negative Past History - Adult - PAST MEDICAL HISTORY-ADULT Review of Records: reports: Nursing Assessment Review, Medications Reviewed, Social history reviewed & non-contributory. Major Childhood Illnesses: reports: denies history Cardiovascular: reports: HTN Respiratory: reports: denies history Gastrointestinal: reports: denies history Obstetrical/Gynecological: reports: denies history Genitourinary: reports: dialysis, kidney disease Musculoskeletal: reports: denies history Neurological: reports: denies history Endocrine/Immune: reports: Diabetes Other Conditions: reports: denies history - PRIOR SURGERIES/PROCEDURES Surgical/Procedure History: reports: reviewed, not pertinent - IMMUNIZATION STATUS Childhood Immunizations: See Nurse Assessment Flu Vaccine: See Nurse Assessment - FAMILY HISTORY Family History: reviewed, not pertinent - SOCIAL HISTORY Smoking: quit less than 1 year, cigarettes Substance Use: denies Living Situation: family Physical Exam-General - PHYSICAL EXAM-ADULT Initial Vital Signs Reviewed: Yes - CONSTITUTIONAL General Appearance: appears well, alert, no apparent distress - EYES Eyes: PERRL/EOMI, pink conjunctivae - HEAD, EARS, NOSE, MOUTH & THROAT HENMT: normocephalic/atraumatic, moist mucous membranes, normal ENT inspection, TMs normal, pharynx normal - NECK Neck: non-tender, full range of motion, supple, normal inspection - RESPIRATORY Respiratory: chest non-tender, lungs clear, normal breath sounds, no pleuratic chest pain, no respiratory distress, no accessory muscle use - CARDIOVASCULAR Cardiovascular: normal peripheral pulses, regular rate, rhythm, no edema, no gallop, no JVD, no murmur - GASTROINTESTINAL (ABDOMEN) Abdominal Exam: normal bowel sounds, non tender, soft, no organomegaly, no pulsatile mass - LYMPHATIC Lymphatic: no adenopathy - MUSCULOSKELETAL Back Exam: normal inspection, no CVA tenderness, no vertebral tenderness Extremity: normal range of motion, non-tender, normal gait, normal inspection, no pedal edema, no calf tenderness, normal capillary refill - SKIN Integumentary: normal color, normal turgor, warm/dry - NEUROLOGIC Neurologic: grossly normal - PSYCHIATRIC Psych/Mental Status: normal mood/affect, oriented x 3 Progress - PLAN OF CARE/RESULTS Progress/Plan/Lab Results: Vital Signs - 8 hr 08/03/16 13:53 Temperature 98.2 F Pulse Rate 85 Respiratory Rate 20 Blood Pressure 213/70 O2 Sat by Pulse Oximetry 99 Orders Category Date Time Status FSBS/Accucheck Result NOW Care 08/03/16 15:13 Active IV [Saline Loc] NOW Care 08/03/16 15:13 Active CBC WITH ELECTRONIC DIFF [HEME] Stat Lab 08/03/16 15:12 Uncollected CMP [COMPREHENSIVE METABOLIC PANEL] [CHEM] Stat Lab 08/03/16 15:13 Uncollected Result Diagrams: 08/03/16 16:08 08/03/16 16:08 - REASSESSMENT Reassessment #1 Time Reassessed: 17:51 Status: improving (pt feeling better and the mental staus change is less marked. he has vomited his bp meds today.) - CONSULTS/PCP/HOSPITALIST Notification #1 *Consult/PCP/Hospitalist*: Dr. Mcrae Time Discussed: 17:49 Reason/Comments: Dr. Simms consults Dr. Mcrae about admit of PT Consult Disposition: Admit #2 Consult: Dr Bazan Time Discussed: 17:25 (he wants him admitted and will dialyze in am) Departure - Departure Time of Disposition Decision: 17:50 DIAGNOSIS: Change in mental status CRF (chronic renal failure) Qualifiers: Chronic kidney disease stage: stage 4 (severe) Qualified Code(s): N18.4 - Chronic kidney disease, stage 4 (severe) Disposition: ADMITTED INPATIENT 09 Certified Medical Emergency: Emergent Condition: Stable Referrals and Follow-Ups: Froylan Mccollum [Primary Care Provider] - - Critical Care Note This patient required my direct & personal management of CC.: No This chart was documented by the indicated scribe, (Dorene Jones Scribe) and accurately reflects the services I performed and decisions made by me, Ricardo Simms MD, as attested by the provider's signature.
[2016-08-03 21:50] LABS: URINE CULTURE NEEDED? NO; URINE MICRO REVIEW NEEDED? NO; URINE SOURCE CLEAN CATCH
[2016-08-03 21:56] LABS: BILIRUBIN URINE NEGATIVE (NEGATIVE); BLOOD URINE NEGATIVE (NEGATIVE); COLOR YELLOW; GLUCOSE URINE 100 mg/dL (NEGATIVE); LEUKOCYTES URINE NEGATIVE (NEGATIVE); NITRITE URINE NEGATIVE (NEGATIVE); PROTEIN URINE 100 mg/dL (NEGATIVE); SP GRAVITY URINE 1.009; TURBIDITY URINE CLEAR (CLEAR); UROBILINOGEN URINE NORMAL (NORMAL)
[2016-08-03 21:58] LABS: UR EPITHELIAL CELLS <10 /HPF (<10); URINE BACTERIA NEGATIVE /HPF; URINE RBC <10 /HPF (<10); URINE WBC <10 /HPF (<10)
[2016-08-03] MEDS ORDERED: INSULIN PEN NEEDLES ONE (22:31)
[2016-08-04] MEDS: APRESOLINE PO SCH ×4 (00:40→23:37)
[2016-08-04] MEDS: HYTRIN PO SCH ×2 (00:41→20:52)
[2016-08-04] MEDS: ZOCOR PO SCH ×2 (00:41→20:53)
[2016-08-04] MEDS: LEXAPRO PO SCH ×3 (00:41→20:51)
[2016-08-04] MEDS: NORVASC PO SCH ×3 (00:42→20:52)
[2016-08-04] MEDS: DULCOLAX PR SCH ×2 (00:43→20:49)
[2016-08-04] MEDS: HEPARIN SUBQ SCH ×4 (00:43→23:37)
[2016-08-04] MEDS: MIRALAX PO SCH ×3 (00:45→20:52)
[2016-08-04] MEDS: CARDENE 20 MG/NS 20 MG/200 ML PIGGYBACK IV SCH ×2 (01:07→04:53)
[2016-08-04] MEDS: LANTUS SUBQ SCH ×2 (01:08→20:52)
[2016-08-04] MEDS: HUMULIN R SUBQ SCH ×5 (01:08→20:50)
[2016-08-04 04:25] LABS: ALLEN TEST YES; BE -7.2 mmoll (-3.0-3.0); BLOOD TYPE ARTERIAL; DRAW SITE R RADIAL; METHB 1.4 % (0.0-1.5); O2(CT) 19.5 mL/dL (15.0-23.0); PCO2(98.6) 31 mmHg (35-45); PO2(98.6) 70 mmHg (60-100); SAMPLE BLOOD; SAO2 95.6 % (95.0-100.0); pH(98.6) 7.35 (7.35-7.45)
[2016-08-04 04:27] LABS: MODALITY ROOM AIR
[2016-08-04] MEDS ORDERED: TIGHT: 0.2 ML/HR MISC PRN (05:48)
[2016-08-04] MEDS ORDERED: NS 2,000 ML MISC PRN (05:48)
[2016-08-04] MEDS ORDERED: HEPARIN IV PRN (05:48)
[2016-08-04 05:49] LABS: HEMATOCRIT 28.1 % (42.0-52.0); HEMOGLOBIN 9.5 g/dL (14.0-18.0); MCHC 33.8 g/dL (33-37); MCV 97.6 FL (81-99); MPV 9.8 FL (7.4-10.4); RBC 2.88 XMIL (4.7-6.1)
[2016-08-04 06:02] LABS: ALBUMIN 3.7 g/dL (3.5-5.0); CALCIUM 9.3 mg/dL (8.8-10.2); POTASSIUM 5.3 mmol/L (3.5-5.1)
[2016-08-04] MEDS: PHOSLO PO SCH ×3 (06:41→16:13)
[2016-08-04] MEDS: SODIUM CHLORIDE 0.9% INJ SCH (06:42)
[2016-08-04] MEDS: PROTONIX IV SCH (06:42)
--- NOTE | 2016-08-04 07:20 | HISTORY AND PHYSICAL ---
PRIMARY CARE PHYSICIAN: Oral Mccollum MD. COMMUNITY ENGAGEMENT COORDINATOR: Horacio Pugh MD CHIEF COMPLAINT: Increase in confusion over the last several weeks, nausea and vomiting today. HISTORY OF PRESENT ILLNESS: Mr. Urrutia is a 66-year-old male with a history of end-stage renal disease on hemodialysis, hypertension, and diabetes mellitus type 2, history of DVT, hypertension, and GERD who presented to the ER today with a chief complaint of nausea, vomiting and generalized weakness. The patient's family member stated that over the last several weeks the patient has been having transient periods of confusion that is becoming more frequent. She reports that this morning the patient had an episode of nausea with vomiting right after he took his morning medications and was unable to keep anything down. The patient was seen by Dr. Mccollum today. The patient also reports that he has been having postnasal drip and just completed a Z-Carlos that was started last . The patient denies having any diarrhea, abdominal pain, chest pain, shortness of breath or recent syncopal episodes. The patient does complain of a mild cough due to postnasal drip. The patient was sent to the ER by Dr. Pugh for further evaluation of the patient's altered mental status. In the ER a head CT was done which was noted to be unremarkable. The patient was noted to have an elevated blood pressure of 228/ 100. However, the patient was unable to keep his blood pressure medications from this morning down. The patient is scheduled to see Dr. Child as outpatient. The patient also missed his dialysis session last week. PAST MEDICAL HISTORY: 1. End-stage renal disease on hemodialysis, Wednesday and . 2. Diabetes mellitus type 2. 3. Hypertension. 4. GERD. 5. Dyslipidemia. 6. History of DVT. 7. Peripheral arterial disease. 8. Anemia of chronic disease. 9. Osteoarthritis. 10. Situational depression. PAST SURGICAL HISTORY: 1. Left AV fistula creation. 2. Right hip fracture repair. 3. Right hip replacement. SOCIAL HISTORY: The patient is a former smoker who quit smoking in 1999. The patient denies any alcohol or illicit drug use. FAMILY HISTORY: The patient's father had mesothelioma. The patient's mother had a history of coronary artery disease and macular degeneration. ALLERGIES: No known drug allergies. HOME MEDICATIONS: 1. Hytrin 10 mg p.o. at bedtime. 2. Zocor 40 mg p.o. at bedtime. 3. Omeprazole 40 mg p.o. daily. 4. Lisinopril 40 mg p.o. daily. 5. Iron 65 mg p.o. daily. 6. Lantus 22 units subcutaneous at bedtime. 7. Hydrochlorothiazide 12.5 mg p.o. daily. 8. Lexapro 20 mg p.o. twice a day. 9. Vitamin B12 1000 mcg daily. 10. Vitamin D3 1000 units oral daily. 11. Calcium acetate 1334 mg p.o. before meals. 12. Vitamin C 500 mg p.o. daily. REVIEW OF SYSTEMS: All other review of systems are negative. Please refer to the history of present illness for pertinent positives and negatives. PHYSICAL EXAMINATION: VITAL SIGNS: Temperature 98.1 degrees, blood pressure 228/100, heart rate 83, respirations 12, O2 saturations 97% on room air. GENERAL: This is a chronically ill-appearing, elderly male standing at the edge of the bed in no acute distress. SKIN: No rashes. No lesions. HEAD: Normocephalic, atraumatic. HEART: S1, S2. Normal. Regular rate and rhythm. LUNGS: Equal air entry bilaterally. No crackles. No rales. ABDOMEN: Positive bowel sounds. Soft, nontender, nondistended. EXTREMITIES: No edema. No cyanosis. No calf tenderness. NEUROLOGICAL: Patient is alert and oriented x3. No focal neurologic deficits noted. Cranial nerves 2 through 12 intact. LABORATORY: White blood cell count 7.9, hemoglobin 10, hematocrit 30, platelets 275,000. Sodium 137, potassium 5.6, chloride 92, CO2 17, BUN 95, creatinine 13.5, glucose 186. AST 11, ALT 7, total protein 6.9, albumin 3. IMAGING: CT of the head shows no acute disease. ASSESSMENT AND PLAN: 1. Encephalopathy. Multifactorial. The differential includes infection, uremia , or medications. Will consult neurology and rule out infection. Hopefully this will improve with dialysis. 2. End-stage renal disease. We will consult Dr. Pugh for dialysis support during the hospitalization. 3. Mild hyperkalemia. This will be addressed during dialysis tomorrow. 4. Accelerated hypertension. The patient was unable to take his home medications today due to nausea and vomiting. We will give the patient a dose of labetalol and restart the patient's antihypertensives. 5. Diabetes mellitus type 2. We will continue on Lantus 22 units subcutaneous at bedtime. 6. Nausea with vomiting. A computed tomography of the abdomen and pelvis is currently pending. We will follow up on this closely. We will start the patient on antiemetics. 7. Benign prostatic hypertrophy. Continue on terazosin. 8. Gastroesophageal reflux disease. Continue Omeprazole. 9. Deep vein thrombosis prophylaxis. We will start the patient on heparin 5000 units subcutaneous every 8 hours. 10. The plan of care was discussed with the patient and his at the bedside. cc: Letaha Mcrae MD MTDD
--- NOTE | 2016-08-04 08:05 | Diag Imaging Result Document ---
PROCEDURE NAME: HEAD W/O CONTRAST - 08/03/2016 CT HEAD WITHOUT CONTRAST: A dose-reduction protocol was used. COMPARISON: 01/31/2015. FINDINGS: There are mild atrophic changes and mild chronic microvascular ischemic changes similar to the previous exam. There is no evidence of recent infarct, although acute infarcts may not be immediately visible. There is no evidence of hemorrhage, mass effect, or midline shift. IMPRESSION: Mild atrophic changes and chronic microvascular ischemic changes similar to the previous exam. No visible acute process. No hemorrhage. The on-call radiologist provided preliminary results at 7:49 p.m. on 08/03/2016.
[2016-08-04] MEDS ORDERED: HEPARIN ONE (08:17)
[2016-08-04] MEDS ORDERED: NS 2,000 ML ONE (08:18)
--- NOTE | 2016-08-04 08:26 | Diag Imaging Result Document ---
PROCEDURE NAME: THORAX/ABDOMEN/PELVIS W/O CONT - 08/03/2016 CT THORAX, ABDOMEN AND PELVIS WITHOUT CONTRAST: TECHNIQUE: A dose reduction protocol was used. No comparison exam. FINDINGS: There are emphysematous changes. There is a calcified granuloma from old granulomatous disease at the posterior right upper lobe. There is scarring versus mild infiltrate at the posterior right lower lobe. There is no dense consolidation, pleural effusion, or pneumothorax identified. There is no mediastinal adenopathy identified. There are no substantial abnormalities of the liver, spleen, adrenal glands, or pancreas (other than mild pancreatic atrophic changes) identified. There are no calcified gallstones or pericholecystic inflammation identified. The bilateral kidneys appear low normal in size. There is bilateral perinephric scarring. There is no renal stone or hydronephrosis identified. There are no substantially enlarged lymph nodes identified. There are atherosclerotic calcifications noted. There is compression deformity of the L2 vertebral body with anterior wedging. There is apparent secondary spondylosis at L1-2 with partial fusion of the disk joint, suggesting that the compression deformity is chronic. The right colon is distended with retained fecal debris to the splenic flexure, compatible with constipation. There is diverticulosis which is most prominent at the sigmoid colon. There is no evidence of diverticulitis. The appendix appears normal. There is no evidence of bowel obstruction. There is no abscess identified. There is no free air or free fluid seen. There are streak artifacts from metallic right hip prosthesis which limit detail at the lower pelvis. The prostate is mildly prominent. IMPRESSION: 1. Emphysematous changes. Scarring versus mild infiltrate at posterior right lower lobe lung. No dense consolidation is seen. 2. Large amount of retained fecal debris in the right colon consistent with constipation. Uncomplicated diverticulosis which is most prominent at the sigmoid. 3. No bowel obstruction. Unremarkable appendix. No abscess. No free air. 4. Atherosclerotic calcifications. Apparent old compression deformity of L2. 5. Mildly prominent prostate. The on-call radiologist provided preliminary results at 7:56 p.m. on 08/03/2016.
[2016-08-04] MEDS: NASONEX NASAL SPRAY NAS SCH (08:58)
[2016-08-04] MEDS: FERROUS SULFATE PO SCH (08:59)
[2016-08-04] MEDS: VITAMIN C PO SCH (08:59)
[2016-08-04] MEDS: VITAMIN D PO SCH (08:59)
[2016-08-04] MEDS: VITAMIN B-12 PO SCH (08:59)
[2016-08-04] MEDS ORDERED: IRON CARBONYL 65 MG PO SCH (09:00)
--- NOTE | 2016-08-04 11:52 | CONSULTATION ---
DATE OF CONSULTATION: 08/04/2016 REASON FOR CONSULTATION: Assistance with management. HISTORY OF PRESENT ILLNESS: Mr. Urrutia is a 66-year-old white male who has end-stage kidney disease secondary to diabetes and hypertension. He also has peripheral vascular disease, reflux disease, and osteoarthritis. He only dialyzes twice a week despite my request that he increase it to 3 times. He has had some trouble with his found him wandering. He skipped his dialysis treatment on last . He has also been dealing with upper respiratory symptoms, for which he has been treated with a Z-Carlos. We have made arrangements for him to see Dr. Child just make to sure that he does not have dementia. PAST MEDICAL HISTORY: As above. HOME MEDICATIONS: His home medications include Hytrin, Zocor, omeprazole, lisinopril, iron, Lantus, hydrochlorothiazide, Lexapro, B12, D3, calcium acetate. ALLERGIES: None. SOCIAL HISTORY: He is and lives with his . No tobacco use currently. FAMILY HISTORY: Noncontributory. PHYSICAL EXAMINATION: Vital Signs: Blood pressure 135/72, heart rate 95, respirations 12, afebrile. Generally: He is in no acute distress. Skin: Warm and dry. HEENT: Conjunctivae are pink. Pupils are equal. Oropharynx is clear. Tongue is moist and midline. Dentition normal. Neck: Supple. Trachea is midline. No jugular venous distention. Heart: Regular with S4. Otherwise, no murmurs or rubs. Lungs: Have equal breath sounds. No crackles. Abdomen: Soft, nontender. Bowel sounds present. Extremities: No edema, clubbing, or cyanosis. Neurologic: Exam is nonfocal. He is oriented to place and situation, though he is very slow to answer. IMPRESSION AND PLAN: 1. Altered mental status. We will dialyze him intensively to exclude uremia as the cause of his symptoms. 2. Electrolytes: Modest hyperkalemia that will be addressed with treatment today. 3. Metabolic acidosis. Same as above. cc: Horacio Pugh MD
--- NOTE | 2016-08-04 12:36 | CONSULTATION ---
DATE OF CONSULTATION: 08/04/2016 REQUESTING PHYSICIAN: Dr. Mcrae REASON FOR CONSULTATION: Altered mental status. HISTORY OF PRESENT ILLNESS: This is a 66-year-old male with a history of end stage renal disease on hemodialysis, hypertension, type 2 diabetes, who was admitted yesterday with nausea, vomiting and generalized weakness. The history is taken from chart review due to patient mental status changes. He had been having transient periods of confusion, and this has been worsening over the last several weeks. He recently completed a Z-Carlos for apparent postnasal drip and cough. He denied diarrhea, abdominal pain, chest pain, shortness of breath. A head CT was performed and did not show any acute abnormality. His blood pressure was elevated at 228/100. He missed a dialysis session last week. He goes twice a week. PAST MEDICAL HISTORY: 1. End stage renal disease on hemodialysis on Wednesday and . 2. Diabetes mellitus type 2. 3. Hypertension. 4. GERD. 5. Dyslipidemia. 6. History of DVT. 7. Peripheral artery disease. 8. Anemia of chronic disease. 9. Osteoarthritis. 10.Situational depression. PAST SURGICAL HISTORY: 1. Left AV fistula. 2. Right hip fracture. 3. Right hip replacement. SOCIAL HISTORY: Former smoker, quit in 1999. Denies alcohol or illicit drug use. FAMILY HISTORY: His father had mesothelioma. His mother had coronary artery disease. ALLERGIES: No known drug allergies. CURRENT MEDICATIONS: Amlodipine, vitamin C, PhosLo, Dulcolax, vitamin D, vitamin B12, Lexapro, ferrous sulfate, heparin, Apresoline, Lantus, Humulin R, labetalol, Nasonex, Cardene, Zofran, Protonix, MiraLAX, Zocor, Hytrin. REVIEW OF SYSTEMS: Unobtainable as the patient is altered. PHYSICAL EXAMINATION: Vital signs: Reviewed. General: He is confused, sleeping, but arouses easily to voice. HEENT: Normocephalic, anicteric. No erythema. Neck is supple. Cardiovascular: Regular rate and rhythm. No murmurs appreciated. Lungs are clear to auscultation bilaterally anteriorly. Extremities: No cyanosis or edema. Neurologic: Mental status: He is sleeping but easily arouses to voice, quickly drifts back to sleep but again easily arousable. He is not oriented at all. He answers mostly yes to everything. His attention and concentration are limited. Unable to name and repeat. Cranial nerves: Pupils are equal, round and reactive to light. Myotic. Pupils are 2-1 mm OU. Extraocular muscles are intact. No nystagmus. Face is symmetrical with equal activation. I could not test his strength. Hearing is grossly intact. He would not open his mouth or protrude his tongue. Could not otherwise test. Motor: He has normal bulk and tone. He has episodic myoclonus. Could not test for drift. He has at least 4/5 in all of his extremities. The exam was limited by patient cooperation. Reflexes: They are 2+ and symmetric throughout. Plantar response is flexor bilaterally. No clonus. He tenses his left leg when testing. Sensory: He responds to painful stimulation in all extremities. The rest of the exam is unable to be tested. Cerebellar/coordination: Unable to test due to cooperation limitations. Gait: Unable to assess. DIAGNOSTIC DATA: White count is 7.9, hemoglobin 9.5, hematocrit 28, platelets 258. Sodium is 140, potassium 5.3, chloride 92, CO2 is 17, BUN is 100, creatinine 13.9, glucose 136. Urinalysis is negative for infection. CT of chest, abdomen and pelvis shows scar versus mild infiltrate of right lower lobe, constipation. CT of head without contrast was personally reviewed and agree with radiologist' s interpretation. Mild atrophic changes and chronic microvascular ischemic changes. No acute process noted. ASSESSMENT AND PLAN: This is a 66-year-old male with a history of end stage renal disease on hemodialysis, hypertension and type 2 diabetes, who was admitted with nausea, vomiting and generalized weakness as well as worsening confusion over the last several weeks. Subacute encephalopathy. Most likely toxic metabolic and most likely secondary to his renal disease. His BUN and creatinine have increased since 05/2016. The differential includes drugs or medication effects, infection, whether NEW CAR MAKE READY MECHANIC or otherwise, and subclinical seizures. I do not hear a history of seizures in the past, so this is less likely. I do not find any focal findings on exam, making a focal cerebral pathology less likely. His head CT was unremarkable for any acute findings. 1. Recommend routine EEG to evaluate his encephalopathy. This has been ordered. 2. Agree with infectious workup. 3. Agree with checking ammonia and treating his constipation. 4. I would avoid sedating medications as able. Thank you for this consultation. We will follow. cc: María Hidalgo MD MTDD
[2016-08-04] MEDS: LABETALOL IV PRN ×3 (14:10→21:36)
--- NOTE | 2016-08-04 20:35 | PROGRESS NOTE ---
DATE: 08/04/2016 SUBJECTIVE: The patient was noted to be confused this morning. He is off the Cardene drip. OBJECTIVE: Vital signs: Temperature 98.9, blood pressure 121/92, heart rate 104, respirations 17, O2 saturation 98% on room air. General: This is a chronically ill elderly male lying in bed in no acute distress. Head: Normocephalic, atraumatic. Heart: S1, S2 normal. Regular rate and rhythm. Lungs: Clear to auscultation bilaterally. No wheezing, no rales, no rhonchi. Abdomen: Positive bowel sounds. Soft, nontender, nondistended. Extremities: No edema, no cyanosis, no calf tenderness. Neurologic: The patient is only oriented to self. He is able to move all four extremities. LABORATORY DATA: White blood cell count 7.8, hemoglobin 9.5, hematocrit 28, platelets 258. Sodium 140, potassium 5.3, chloride 95, CO2 of 16, BUN 100, creatinine 13.9, glucose 136, phosphorus 9.0. ASSESSMENT AND PLAN: 1. Encephalopathy. This may be secondary to uremia. Will continue to monitor closely for improvement. Neurology is following. 2. End-stage renal disease. The patient is due for dialysis today. Further management as per the mash processing operator. 3. Accelerated hypertension. Improved. Will continue on the current scheduled antihypertensive therapy. 4. Diabetes mellitus type 2. Continue on Lantus plus sliding scale insulin. 5. Situational depression. Continue on Lexapro. 6. Hyperphosphatemia. Continue on PhosLo. 7. Deep venous thrombosis prophylaxis. Continue on heparin. cc: MD BRAIN Huitron
[2016-08-04] MEDS: ZOFRAN IV PRN (20:44)
--- NOTE | 2016-08-05 04:33 | EEG REPORT ---
DATE: 08/04/2016 REFERRING PHYSICIAN: María Hidalgo MD EEG #: [id number]. KNIFE OPERATOR: Shraddha Wu. BACKGROUND INFORMATION: TECHNIQUE: Digital EEG is performed with extra channel of EKG. HISTORY OF PRESENT ILLNESS: This is a 66-year-old male with end-stage renal disease on hemodialysis who presents with altered mental status and periods of confusion. EEG is ordered to evaluate encephalopathy and evidence for seizure. MEDICATION LIST: Amlodipine, Lexapro, Apresoline, labetalol, Cardene, Zocor, and Hytrin. FINDINGS: This is a technically limited EEG due to EMG artifact and patient movement. A posterior dominant alpha rhythm is not seen. The background consists of mixed theta/delta slowing with no faster frequencies noted. There are no epileptiform discharges. Infrequent diffuse triphasic like waves are seen. There is no focal slowing. Hyperventilation was not performed. Photic stimulation induced normal photic driving response. The patient was awake for the entire study. EKG shows regular intervals. IMPRESSION AND RECOMMENDATIONS: Abnormal, technically limited, routine EEG due to: 1. Lvqxdgwe-jq-amrlvz generalized slowing consistent with a ijrirbns-qn-[id number] diffuse encephalopathy. Generalized slowing is a nonspecific finding that can be seen in processes that diffusely affect the cerebrum including toxic, metabolic, posthypoxic, pharmacologic, or infectious conditions. 2. Infrequent diffuse triphasic like waves. Triphasic waves are also a nonspecific finding that can be seen in encephalopathies, most often with hepatic or uremic encephalopathy. 3. No epileptiform abnormalities or seizures were noted. This does not rule out an underlying seizure disorder. cc: María Hidalgo MD
[2016-08-05] MEDS: SODIUM CHLORIDE 0.9% INJ SCH (06:38)
[2016-08-05] MEDS: PROTONIX IV SCH (06:38)
[2016-08-05] MEDS: HEPARIN SUBQ SCH ×2 (06:38→15:06)
[2016-08-05] MEDS: HUMULIN R SUBQ SCH ×4 (06:39→21:31)
[2016-08-05] MEDS: APRESOLINE PO SCH ×2 (06:39→15:06)
[2016-08-05] MEDS: PHOSLO PO SCH ×3 (06:39→18:23)
[2016-08-05 07:10] LABS: HEMATOCRIT 29.9 % (42.0-52.0); HEMOGLOBIN 9.7 g/dL (14.0-18.0); MCH 32.9 PG (27-31); MCHC 32.4 g/dL (33-37); MCV 101.4 FL (81-99); MPV 9.7 FL (7.4-10.4); RBC 2.95 XMIL (4.7-6.1)
[2016-08-05 07:19] LABS: ALBUMIN 3.9 g/dL (3.5-5.0); CALCIUM 9.3 mg/dL (8.8-10.2); POTASSIUM 4.5 mmol/L (3.5-5.1)
[2016-08-05] MEDS: MIRALAX PO SCH ×2 (08:26→21:30)
[2016-08-05] MEDS: VITAMIN D PO SCH (08:26)
[2016-08-05] MEDS: VITAMIN B-12 PO SCH (08:26)
[2016-08-05] MEDS: FERROUS SULFATE PO SCH (08:26)
[2016-08-05] MEDS: LEXAPRO PO SCH ×2 (08:26→21:22)
[2016-08-05] MEDS: VITAMIN C PO SCH (08:27)
[2016-08-05] MEDS: NORVASC PO SCH ×2 (08:27→21:22)
[2016-08-05] MEDS: NASONEX NASAL SPRAY NAS SCH (08:30)
--- NOTE | 2016-08-05 08:34 | PROGRESS NOTE ---
DATE: 08/05/2016 Mr. Urrutia seems to be improved. This morning, he is awake, alert, attentive. Speech is not dysarthric. Language function is intact on brief bedside testing. He is oriented to [facility]. He is aware that he does not have complete memory of events in the last few days. He is aware that he is doing much better now. IMPRESSION: Metabolic encephalopathy, stable and improving, no evidence of new neurologic problem. No new suggestion today from a neurologic standpoint. cc: Melody Child III, MD
[2016-08-05] MEDS: ZOFRAN IV PRN (09:00)
[2016-08-05] MEDS: LABETALOL IV PRN ×2 (10:07→15:44)
--- NOTE | 2016-08-05 10:20 | PROGRESS NOTE ---
DATE: 08/05/2016 SUBJECTIVE: He is having nausea and vomiting. However, mentally he is more appropriate today. He is able to joke and interact. No other new complaints today. OBJECTIVE: Vital Signs: Blood pressure 175/72, heart rate 87, respiration 18, afebrile. Intake 750 mL; output 1.6 L. General: On physical exam, no acute distress. Skin: Warm and dry. Eyes: Conjunctivae are pink. Neck: Neck veins are not visible. Heart: Regular. Lungs: Have equal breath sounds. No crackles. Abdomen: Soft, nontender. Bowel sounds are present. Extremities: Have no edema, clubbing, or cyanosis. LABORATORY DATA: Sodium 141, potassium 4.5, chloride 96, bicarbonate 26. BUN 40, creatinine 7.6. Hemoglobin 9.7. IMPRESSION: 1. Altered mental status. I expect this may be uremic in origin. We will continue intensive dialysis for the next 3 days. 2. Electrolytes are in target. 3. Acid-base in target. 4. Nausea and vomiting. Dr. Mcrae was evaluating this. 5. Anemia. Below target. Will restart erythropoietin. cc: Horacio Pugh MD
--- NOTE | 2016-08-05 10:33 | Diag Imaging Result Document ---
PROCEDURE NAME: ABDOMEN FLAT/UPRIGHT - 08/05/2016 FLAT AND UPRIGHT AND PLAIN RADIOGRAPH OF THE ABDOMEN, 2 VIEWS: COMPARISON: None available. FINDINGS: There are nonspecific colonic gas and stool patterns. There is a fair amount of stool in the right colon as well as the rectum suggesting possible mild constipation. There is no obstructive bowel pattern. There is no evidence of large-volume free abdominal gas. There is no discrete organomegaly. IMPRESSION: Possible mild constipation.
--- NOTE | 2016-08-05 15:35 | PROGRESS NOTE ---
DATE: 08/05/2016 SUBJECTIVE: The patient remains confused this morning. He did have an episode of green-colored emesis this morning as well. He has had 3 bowel movements as per the nursing staff. OBJECTIVE: Vital Signs: Temperature 97.1 degrees, blood pressure 142/52, heart rate 80, respirations 18, O2 saturations 94% on room air. General: This is a chronically ill-appearing, elderly male, lying in bed, in no acute distress. Head: Normocephalic, atraumatic. Heart: S1, S2 normal. Regular rate and rhythm. Lungs: Clear to auscultation bilaterally. No wheezes. No rales. No rhonchi. Abdomen: Positive. Bowel sounds soft, nontender, nondistended. Extremities: No edema. No cyanosis. No calf tenderness. Neurologic: The patient is oriented to self and is able to move all 4 extremities; however, he still remains confused. LABORATORY DATA: White blood cell count 7.8, hemoglobin 9.7, hematocrit 29, platelets 259,000. Sodium 141, potassium 4.5, chloride 96, CO2 of 26. BUN 40, creatinine 7.6, glucose 110, phosphorus 7.2. Abdominal x-ray shows mild constipation. ASSESSMENT AND PLAN: 1. Encephalopathy. Most likely uremia. The patient does not appear to have any obvious source of infection. We will continue to monitor the patient closely for improvement. Neurology is following. 2. End-stage renal disease. Management as per the frame tender. 3. Nausea with vomiting. We will consult the tree loader meat for further recommendations. The abdominal x-ray done today does show mild constipation, however, the patient has had 3 bowel movements so far. 4. Hypertension. Continue on the current antihypertensive regimen. 5. Diabetes mellitus, type 2, controlled. Continue on Lantus and sliding scale insulin. 6. Situational depression. Continue on Lexapro. 7. Hyperphosphatemia, improved. The patient is on PhosLo.' 8. Deep vein thrombosis prophylaxis. Continue on heparin. 9. The patient is stable for transfer to the medical floor. cc: Leatha Mcrae MD [facility]
--- NOTE | 2016-08-05 16:15 | CONSULTATION ---
DATE OF CONSULTATION: 08/05/2016 REASON FOR CONSULTATION: Nausea and vomiting. HISTORY OF PRESENT ILLNESS: Mr. Urrutia is a 66-year-old male who was admitted on 08/03/2016 with confusion, nausea and vomiting. He was diagnosed with uremic encephalopathy and end-stage renal disease. He has been seen by the Nephrology team who has put him on hemodialysis. The patient has been having intermittent nausea and vomiting for the last 3 days before admission and progresses during this admission. He also had imaging done in the form of CT of the head which was unremarkable. The patient has a known history of accelerated hypertension, type 2 diabetes, reflux disease. His last colonoscopy was done 3 years ago in [place] but the patient does not recall the results of the procedure. He denies any vomiting blood or passing blood in the stools. PAST MEDICAL HISTORY: 1. End stage renal disease on hemodialysis. 2. Type 2 diabetes. 3. Hypertension. 4. Reflux. 5. Hyperlipidemia. 6. History of DVT. 7. Peripheral artery disease. 8. Anemia of chronic disease. 9. Osteoarthritis. 10. Depression. PAST SURGERY HISTORY: Left AV fistula creation, right hip fracture repair, right hip replacement. SOCIAL HISTORY: He is a former smoker, quit smoking in year 1999. He denies any history of alcohol, illicit or drug abuse. FAMILY HISTORY: Father had mesothelioma. Mother has a history of coronary disease and macular degeneration. ALLERGIES: No known drug allergies. MEDICATIONS IN THE HOSPITAL: Amlodipine, vitamin C, Dulcolax, PhosLo, nicardipine, vitamin D, vitamin B12, Lexapro, iron sulfate, heparin 5000 subcutaneous q.8 hours, hydralazine, Lantus, Humulin R, labetalol, Nasonex, Zofran, Protonix, MiraLAX twice daily, Zocor and terazosin. DIET: He is currently on a renal diet. ALLERGIES: No known drug allergies. REVIEW OF SYSTEMS: Denies any current fevers, rigors, chills, chest pain, shortness of breath, dyspnea at rest. Denies any genitourinary complaints. He does have a history of receiving hemodialysis. Denies history of vomiting or passing blood in the stools. Does have history of arthritis. He has a history of chronic reflux disease and intermittent constipation. PHYSICAL EXAMINATION: Vital Signs: Temperature 97.1 degrees, pulse of 80, respiratory rate 18, blood pressure 148/52, saturating 98% on room air. Body weight of 152 pounds 5 ounces. BMI of 23.9 kg. General: Moderately nourished, lying in bed, in no acute distress. HEENT: Pale conjunctivae. No icterus. Pupils equal, reactive to light. Neck: Supple. Chest: Decreased breath sounds. Cardiac: Regular rate and rhythm. No murmur. Abdomen: Mildly protuberant, tympanic on palpation, no rebound or guarding, no hepatosplenomegaly. Extremities: No cyanosis or clubbing. Neurologic: Awake and alert. Answers questions. LABS: Hemoglobin and hematocrit is 9.7 and 29.9, white count of 7.8, platelet count of 259,000, MCV of 101.4. Sodium 141, potassium 4.5, chloride 93, bicarbonate 23, anion 19 , BUN 40, creatinine of 7.6, glucose of 100, calcium 39.3, phosphorus is 7.2, albumin of 3.9. On admission, his BUN and creatinine was 95 and 13.5. Potassium of 5.6. AST was 11, ALT 7, alkaline phosphatase is 60, total protein is 6, albumin of 8.9, total bilirubin 0.25. Urinalysis showed positive protein, positive glucose and some trace ketones. CHEST, ABDOMEN, PELVIS CT SCAN ON 08/03/2016: 1. Emphysematous changes in the posterior right lung lower lobe of the lung, no dense consolidation. 2. Large amount of retained fecal debris in the right colon, constipation. 3. Uncomplicated diverticulosis most prominent at the sigmoid. 4. No bowel obstruction. No free air. No abscess. 5. Arthrosclerotic calcification and old compression deformity at L2. Mildly prominent prostate was noted. HEAD CT DONE ON 08/03/2016: Mild atrophic changes and mild chronic microvascular ischemic changes noted similar to previous examination. No hemorrhage noted. ABDOMINAL X-RAY: Today showed possible mild consolidation in the right colon and rectum. IMPRESSION AND PLAN: 1. Nausea and vomiting for the last 3-5 days. I believe this is likely multifactorial secondary to uremia, constipation and reflux disease. We will continue patient on PPIs once daily. We will schedule patient for EGD tomorrow under anesthesia. The risks, benefits , indications, alternatives were discussed with the patient and all questions were answered. 2. Constipation. Continue on MiraLAX twice daily. We will give him a soapsuds enema today. 3. Diverticulosis in the colon. We will avoid corn, nuts, and seeds in diet and increase Fiber intake to 25-30 grams in 24 hours. 4. End-stage renal disease on hemodialysis with Dr. Pugh. 5. Anemia likely multifactorial and may be secondary to anemia of chronic disease and renal failure. The patient had a recent colonoscopy done. We will discuss that with the primary team to obtain records as the patient does not recall the name of the physician who performed it. 6. Diabetes, hyperlipidemia, hypertension per the primary team. cc: MD Horacio Mejia MD Nixon Gillespie, MD Eston G. Norwood III, MD Katherine Takundwa, MD MTDD
[2016-08-05] MEDS: ZOCOR PO SCH (21:23)
[2016-08-05] MEDS: HYTRIN PO SCH (21:24)
[2016-08-05] MEDS: DULCOLAX PR SCH (21:29)
[2016-08-05] MEDS: LANTUS SUBQ SCH (21:30)
[2016-08-06] MEDS ORDERED: HEPARIN IV PRN (05:39)
[2016-08-06] MEDS ORDERED: TIGHT: 0.2 ML/HR MISC PRN (05:39)
[2016-08-06] MEDS ORDERED: NS 2,000 ML MISC PRN (05:39)
[2016-08-06 05:44] LABS: HEMATOCRIT 29.5 % (42.0-52.0); HEMOGLOBIN 9.5 g/dL (14.0-18.0); MCH 32.5 PG (27-31); MCHC 32.2 g/dL (33-37); MPV 9.3 FL (7.4-10.4); RBC 2.92 XMIL (4.7-6.1)
[2016-08-06] MEDS ORDERED: EPOGEN SUBQ ONE (06:34)
[2016-08-06 06:38] LABS: ALBUMIN 3.8 g/dL (3.5-5.0); CALCIUM 9.6 mg/dL (8.8-10.2); POTASSIUM 4.8 mmol/L (3.5-5.1)
[2016-08-06] MEDS: HEPARIN SUBQ SCH ×4 (06:39→22:08)
[2016-08-06] MEDS: APRESOLINE PO SCH ×4 (06:39→22:09)
[2016-08-06] MEDS: HUMULIN R SUBQ SCH ×4 (06:40→22:08)
[2016-08-06] MEDS: PROTONIX IV SCH (06:57)
--- NOTE | 2016-08-06 07:06 | PROGRESS NOTE ---
DATE: 08/06/2016 SUBJECTIVE: He is feeling better today. He is not nauseated or vomiting currently. No shortness of breath. OBJECTIVE: Vital Signs: Blood pressure 115/82, heart rate 82, respirations 19, afebrile. Generally: He is in no acute distress. Skin: Warm and dry. Conjunctivae are pink. Neck: Neck veins are not distended. Heart: Regular without gallops. Lungs: Have equal breath sounds. No crackles or wheezes. Abdomen: Soft, nontender. Bowel sounds present. Extremities: Have no edema, clubbing, or cyanosis. LABORATORY DATA: Pending. IMPRESSION: 1. Altered mental status. I believe this was uremic in origin and he is much better. We will dialyze him again today and then he will be back on his routine schedule. We will plan to increase his outpatient dialysis regimen to 3 times a week. 2. Electrolytes/acid base/anemia. Data are pending. He does have anemia and I will restart erythropoietin. cc: Horacio Pugh MD
[2016-08-06] MEDS ORDERED: HEPARIN ONE ×2 (07:12→10:56)
[2016-08-06] MEDS ORDERED: NS 2,000 ML ONE ×2 (07:12→10:56)
[2016-08-06] MEDS: PHOSLO PO SCH ×3 (07:21→16:52)
--- NOTE | 2016-08-06 08:26 | PROGRESS NOTE ---
DATE: 08/06/2016 Mr. Urrutia was reported to continue improving through the day yesterday. When I saw him yesterday morning, he was more alert and oriented than previously reported and report is that he continued to improve into the afternoon. This morning, he is sleeping comfortably and I did not disturb him. No new suggestion from neurologic standpoint today. cc: Melody Child III, MD MTDD
[2016-08-06] MEDS: LEXAPRO PO SCH ×2 (08:42→20:10)
[2016-08-06] MEDS: FERROUS SULFATE PO SCH (08:42)
[2016-08-06] MEDS: NORVASC PO SCH ×2 (08:43→20:11)
[2016-08-06] MEDS: NASONEX NASAL SPRAY NAS SCH (08:43)
[2016-08-06] MEDS: VITAMIN B-12 PO SCH (08:43)
[2016-08-06] MEDS: MIRALAX PO SCH ×2 (08:43→20:11)
[2016-08-06] MEDS: VITAMIN C PO SCH (08:44)
[2016-08-06] MEDS: VITAMIN D PO SCH (08:44)
[2016-08-06] MEDS ORDERED: DIPRIVAN 1% ONE (09:46)
--- NOTE | 2016-08-06 10:17 | OPERATIVE NOTE ---
PROCEDURE DATE: 08/06/2016 ATTENDING PHYSICIAN: Dr. Benson. TITLE OF PROCEDURE: Esophagogastroduodenoscopy. PREOPERATIVE DIAGNOSES: 1. Nausea, vomiting, coffee-grounds emesis. 2. End-stage renal disease, on hemodialysis. 3. Chronic obstructive pulmonary disease. 4. Chronic smoker, quit in the year 1999. 5. Anemia. POSTOPERATIVE DIAGNOSES: 1. Normal esophagus in its entire length. 2. Z-line visualized at 40 cm. 3. Evidence of gastritis in the body and in the cardia. Some of this is secondary to retching. Also evidence of bile in the stomach. 4. Normal fundus and incisura. 5. Normal duodenal bulb and second portion of the duodenum. 6. No evidence of any pyloric stenosis noted. ESTIMATED BLOOD LOSS: None. COMPLICATIONS: Transient hypoxemia with the saturations going down to 80s. The patient has known COPD. Was given face mask with 100% oxygen and the oxygen saturations went up to 99%. ANESTHESIA: Monitored anesthesia care by anesthesiologist. SPECIMENS COLLECTED: None. DESCRIPTION OF PROCEDURE: After informed consent, the patient explained the risks, benefits, indications, alternatives, the patient was prepared for EGD. The patient was brought to the OR. He was turned to the left lateral position. A bite block was placed in patient' s mouth. After adequate monitored anesthesia care, the upper scope was introduced and was traversed all the way to the second portion of the duodenum. The esophagus normal in the entire length. Z-line was visualized at 40 cm. There was no evidence of any ulcerations noted. There was evidence of bile in the stomach, suctioned out. The stomach mucosa was carefully examined. It showed evidence of patchy gastritis in the body and the cardia. However, I think it is secondary to retching. The rest of the stomach had mild erythema but no visible ulceration. Retroflexion revealed normal fundus and incisura. The duodenal bulb and second portion appeared normal. There was no evidence of any active bleeding, stigmata of bleeding, fresh or old blood in the entire EGD. The air was aspirated as the scope was withdrawn. The patient tolerated the procedure, currently monitored in the OR in stable condition. RECOMMENDATIONS: 1. Patient will be on Protonix once daily for the next 6-8 weeks and then switch to Zantac twice daily at a dose of 150 mg. 2. The patient will be on MiraLAX for chronic constipation once daily. 3. The patient has anemia. It is likely secondary to renal failure and anemia of chronic disease. Continue management per the renal team. May need outpatient colonoscopy if Anemia persists. 4. Endstage renal disease, on hemodialysis, to be continued with Dr. Pugh. 5. We will check patient's H. pylori stool antigen and if it is positive, that needs to be treated. The patient will follow up in the clinic in 4 weeks of discharge. 6. Above plan was discussed with the patient's and all questions answered. cc: MD Horacio Mejia MD Raphael K. Quansah, MD MTDD
--- NOTE | 2016-08-06 11:27 | PROGRESS NOTE ---
DATE: 08/06/2016 SUBJECTIVE: The patient is resting. The patient's mental status has been improving over the course of the hospital stay, as per the nursing staff. OBJECTIVE: Vital Signs: Temperature 98.6 degrees, blood pressure 130/60, heart rate 77, respirations 18, O2 saturation is 97% on room air. General: This is an elderly male, lying in bed, in no acute distress. Head: Normocephalic, atraumatic. Heart: S1, S2. Normal. Regular rate and rhythm. Lungs: Clear to auscultation bilaterally. Abdomen: Positive bowel sounds. Soft, nontender, nondistended. Extremities: No edema. No cyanosis. Neurologic: The patient is alert. LABS: White blood cell count 7.6, hemoglobin 9.5, hematocrit 29, platelets 258,000. Sodium 141, potassium 4.8, chloride 96, CO2 25, BUN 51, creatinine 9.1. ASSESSMENT AND PLAN: 1. Uremic encephalopathy. Improving. Continue with dialysis management as per the swatch checker. 2. End-stage renal disease. The patient is scheduled for dialysis today. 3. Gastritis. Continue on Protonix. 4. Nausea with vomiting. Will continue to monitor for improvement. 5. Hypertension. Controlled. 6. Anemia. The patient has been given a dose of Epogen today. 7. Diabetes mellitus type 2. Continue on Lantus plus sliding scale insulin. 8. Deep vein thrombosis prophylaxis. Continue on heparin 5000 units subcutaneous every 8 hours. 9. Will consult physical therapy. cc: Leatha Mcrae MD
[2016-08-06] MEDS ORDERED: NS 1,000 ML ONE (11:56)
[2016-08-06] MEDS: LABETALOL IV PRN (16:45)
[2016-08-06] MEDS: HYTRIN PO SCH (20:11)
[2016-08-06] MEDS: ZOCOR PO SCH (20:11)
[2016-08-06] MEDS: DULCOLAX PR SCH (20:12)
[2016-08-06] MEDS: LANTUS SUBQ SCH (22:09)
[2016-08-07 06:02] LABS: HEMATOCRIT 32.1 % (42.0-52.0); HEMOGLOBIN 10.1 g/dL (14.0-18.0); MCH 32.7 PG (27-31); MCHC 31.5 g/dL (33-37); MCV 103.9 FL (81-99); MPV 9.3 FL (7.4-10.4); RBC 3.09 XMIL (4.7-6.1)
[2016-08-07] MEDS: SODIUM CHLORIDE 0.9% INJ SCH (06:05)
[2016-08-07] MEDS: PROTONIX IV SCH (06:05)
[2016-08-07] MEDS: PHOSLO PO SCH (06:05)
[2016-08-07] MEDS: APRESOLINE PO SCH (06:05)
[2016-08-07] MEDS: HEPARIN SUBQ SCH (06:05)
[2016-08-07] MEDS: HUMULIN R SUBQ SCH (06:12)
[2016-08-07 06:19] LABS: ALBUMIN 3.8 g/dL (3.5-5.0); CALCIUM 9.1 mg/dL (8.8-10.2)
--- NOTE | 2016-08-07 08:14 | PROGRESS NOTE ---
DATE: 08/07/2016 SUBJECTIVE: He is feeling much better. He is alert, oriented, appropriate. He has not tried to get out of bed. He has not had food this morning. OBJECTIVE: Vital Signs: Blood pressure 160/49, heart rate 90, respiration 18, afebrile. Intake 50 mL. Output 2 L. PHYSICAL EXAMINATION: No acute distress. Skin is warm and dry. Conjunctivae are pink. Pupils are equal. Neck veins are not distended. Trachea is midline. Heart is regular. No rubs. Lungs have equal breath sounds. No crackles or wheezes. Abdomen soft, nontender. Bowel sounds present. Extremities have no edema, clubbing, or cyanosis. LABORATORY DATA: Sodium 141, potassium 4.0, chloride 98, bicarbonate 28. BUN 27, creatinine 5.5, hemoglobin 10.1. IMPRESSION: 1. Altered mental status. I believe this was uremia associated, resolved. I will ask Physical Therapy to reassess him this morning. Check his room air saturation. Provide breakfast. If he does well, then I would support his discharge. We will change his outpatient dialysis prescription to 4 hours 3 times a week. 2. Electrolytes/acid base/anemia - all in target. 3. Hypertension. Above target but acceptable. cc: Horacio Pugh MD
[2016-08-07] MEDS: VITAMIN B-12 PO SCH (08:57)
[2016-08-07] MEDS: VITAMIN D PO SCH (08:57)
[2016-08-07] MEDS: NORVASC PO SCH (08:57)
[2016-08-07] MEDS: VITAMIN C PO SCH (08:57)
[2016-08-07] MEDS: FERROUS SULFATE PO SCH (08:57)
[2016-08-07] MEDS: LEXAPRO PO SCH (08:57)
[2016-08-07] MEDS: NASONEX NASAL SPRAY NAS SCH (08:58)
[2016-08-07] MEDS: MIRALAX PO SCH (08:58)
[2016-08-07] MEDS ORDERED: EPOGEN SUBQ SCH (09:00)
--- NOTE | 2016-08-07 09:38 | PROGRESS NOTE ---
DATE: 08/07/2016 Mr. Urrutia is awake, alert, attentive, oriented, and appropriate. Speech is not dysarthric. He believes he is completely recovered. at the bedside agrees that he seems completely back to baseline mentally. This seems to have been metabolic encephalopathy, now completely resolved. No suggestion at this point from a neurologic standpoint. cc: Melody Child III, MD MTDD
[2016-08-07 10:07] VITALS: BP 167/57
--- NOTE | 2016-08-13 09:15 | DISCHARGE SUMMARY ---
ADMISSION DATE: 08/03/2016 DISCHARGE DATE: 08/07/2016 FINAL DISCHARGE DIAGNOSES: 1. Uremic encephalopathy. 2. End-stage renal disease, on hemodialysis. 3. Gastritis. 4. Hypertension. 5. Anemia of chronic disease. 6. Diabetes mellitus type 2. CONSULTATIONS REQUESTED DURING THIS HOSPITAL STAY: 1. Nephrology consultation with Dr. Pugh. 2. Neurology consultation with Dr. Child. 3. GI consultation with Dr. Millan. PROCEDURES PERFORMED DURING THIS HOSPITAL STAY: EGD which revealed gastritis. HOSPITAL COURSE: Mr. Urrutia is a 66-year-old male with a history of end-stage renal disease who was brought to the ER with a chief complaint of confusion as per the . The patient had a head CT done that was noted to be unremarkable. The patient was then admitted to the hospitalist service for further evaluation. The patient also underwent a CT of the chest, abdomen, and pelvis that did not reveal an etiology of the patient's confusion. Infection was ruled out. The patient was started on dialysis and dialyzed daily for several days in a row. Neurology was also consulted and it was thought that the patient's mental status change was secondary to uremia. The patient then started to complain of persistent nausea and vomiting so GI was consulted. The patient had an EGD done that revealed gastritis. The patient continued to improve clinically and was ultimately transferred to the medical floor. The patient's dialysis schedule was changed to include Wednesday in addition to Wednesday and . The patient was ultimately cleared for discharge home on 08/07/2016. DISCHARGE MEDICATIONS: 1. Norvasc 5 mg p.o. twice a day. 2. Hydralazine 25 mg p.o. every 8 hours. 3. Protonix 40 mg p.o. daily. 4. Fish oil 1 tablet oral daily. 5. Vitamin C 500 mg p.o. daily. 6. Iron Chews 65 mg p.o. daily. 7. Terazosin 10 mg p.o. at bedtime. 8. Zocor 40 mg p.o. at bedtime. 9. Lantus 22 units subcutaneous at bedtime. 10. Vitamin D3 1000 units oral daily. 11. Calcium acetate 1334 mg p.o. before meals. 12. Lexapro 20 mg p.o. twice a day. 13. Vitamin B12 1000 mcg oral daily. DISCHARGE DIET: Diabetic, renal diet. ACTIVITY: As tolerated. FOLLOWUP INSTRUCTIONS: The patient will need to follow up for his scheduled dialysis sessions. cc: Leatha Mcrae MD
== END 2016-08-07 11:47 | disposition home or self-care (01) ==
LOC: 3N 13:34 → ED 13:34 → OBSVTOIN 18:57 → ICU 08-04 00:22 → 3N 08-06 18:07
PROVIDERS: ATTEND Internal Medicine

== ENCOUNTER 2016-11-29 10:54 | Inpatient (IN) ==
[2016-11-29 12:12] LABS: EOS# 0.01 X1000 (0.0-0.7); HEMATOCRIT 33.2 % (42.0-52.0); HEMOGLOBIN 10.9 g/dL (14.0-18.0); IMM GRAN# 0.08 X1000 (0.0-0.04); IMM GRAN% 0.4 % (0.0-0.5); LYMPH# 0.63 X1000 (1.2-3.4); LYMPH% 2.8 % (20.5-51.1); MANUAL DIFF NEEDED? NO; MCH 31.4 PG (27-31); MCHC 32.8 g/dL (33-37); MCV 95.7 FL (81-99); MONO# 1.06 X1000 (0.11-0.59); MONO% 4.7 % (1.7-9.3); NEUT% 92.1 % (42.2-75.2); PLT 407 X1000 (130-400); RBC 3.47 XMIL (4.7-6.1)
[2016-11-29 12:33] LABS: CALCIUM 9.7 mg/dL (8.8-10.2); POTASSIUM 4.5 mmol/L (3.5-5.1); TOTAL BILIRUBIN 0.54 mg/dL (0.20-1.00)
--- NOTE | 2016-11-29 13:34 | Diag Imaging Result Doc PS360 ---
ABDOMEN FLAT/UPRIGHT - 11/29/2016 INDICATION: abdominal pain TECHNIQUE: Two views COMPARISON: 08/05/2016 FINDINGS: There is severe distention of the proximal and transverse colon with stool and gas. No small bowel obstruction. No free air. No abnormal calcifications. Stable right hip prosthesis. IMPRESSION: Severe constipation of the descending and transverse colon. Electronically signed by Juan Silva 11/29/2016 1:32 PM
--- NOTE | 2016-11-29 15:12 | PROVIDER DOCUMENTATION ---
This chart was entered by Dorene Jones Scribe, acting as scribe for Alessandro Jonas MD. HPI-General Adult - General Chief Complaint: N/V/D Stated Complaint: RECTAL BLEED/POSS DEHYDRATION Time Seen by Provider: 11/29/16 11:12 Source: patient Allergies/Adverse Reactions: Patient Allergies Allergy/AdvReac Type Severity Reaction Status Date / Time No Known Allergies Allergy Verified 08/03/16 15:59 Home Medications: Home Medication List Medication Instructions Recorded Confirmed Last Taken Type Ascorbic Acid [Vitamin C] 500 mg PO DAILY 06/14/14 11/29/16 11/27/16 07:00 History 500 MG Fish Oil/Dha/Epa [Fish Oil 1,200 1 each PO DAILY 06/14/14 11/29/16 11/27/16 07: 00 History mg Fish Oil] 1 EACH Insulin Glargine [Lantus] 22 unit SUBQ QHS 06/14/14 11/29/16 11/28/16 19:00 History 22 UNIT Iron,Carbonyl [Iron Chews] 65 mg PO DAILY 06/14/14 11/29/16 11/27/16 07:00 History 65 MG SIMVAstatin [Zocor] 40 mg PO QHS 06/14/14 11/29/16 11/27/16 07:00 History 40 MG Terazosin [Hytrin] 10 mg PO HS 06/14/14 11/29/16 11/27/16 07:00 History 10 MG Calcium Acetate 1,334 mg PO AC 06/01/16 11/29/16 11/27/16 07:00 History 1334 MG Cholecalciferol (Vitamin D3) 1,000 unit PO DAILY 06/01/16 11/29/16 11/27/16 07: 00 History [Vitamin D3] 1000 UNIT Cyanocobalamin (Vitamin B-12) 1,000 mcg PO DAILY 06/01/16 11/29/16 11/27/16 07: 00 History [Vitamin B-12] 1000 MCG Escitalopram [Lexapro] 20 mg PO BID 06/01/16 11/29/16 11/27/16 07:00 History 20 MG Ferrous Sulfate 325 mg PO DAILY 06/01/16 11/29/16 11/27/16 07:00 History 325 MG [place]-3/Dha/Epa/Fish Oil [Fish Oil 1 each PO DAILY 06/01/16 11/29/16 11/27/16 07 :00 History EC 1,200 mg Softgel] 1 EACH Amlodipine [Norvasc] 5 mg PO BID #30 tablet 08/07/16 11/29/16 11/27/16 07:00 Rx 5 MG Hydralazine [Apresoline] 25 mg PO Q8H #90 tablet 08/07/16 11/29/16 11/27/16 07: 00 Rx 25 MG Pantoprazole Sodium [Protonix] 40 mg PO DAILY #30 tablet. 08/07/16 11/29/16 07:00 Rx 40 MG - History of Present Illness -Gen Adult Nature of Presenting Problems: Pt is a 66 y/o M presents to the ED with nausea, vomiting, diarrhea and weakness. Pt's states symptoms have been present for 2 days. Pt's states Pt has renal disease and has dialysis MWF. Pt's states Pt has not been able to take meds other than insulin. Location of Pain/Injury: reports: none Pain Radiation: reports: no radiation Quality of Pain: reports: none Severity: reports: mild Onset/Duration: reports: 2 days ago Timing: reports: still present Context/Activities at Onset: reports: light activity Modifying Factors: improves with: nothing Associated Symptoms: reports: diarrhea, nausea, vomiting, weakness. denies: anxiety, arm pain, back/neck pain, chest pain, constipation, cough, diaphoresis , dizziness, EENT symptoms, fatigue, fever/chills, genitourinary problems, headaches, heartburn, joint pain, loss of appetite, malaise, muscle aches, sinus congestion/drainage, rash, seizure, shortness of breath, sensory/motor loss, pain with inspiration, swelling/mass in abdomen, syncope, trouble walking Similar Symptoms Previously?: Yes (present for 2 days ) Recently seen or treated by another doctor?: Yes (admitted in October ) Review of Systems - Adult - REVIEW OF SYSTEMS - ADULT Constitutional: reports: no symptoms reported Eyes: reports: no symptoms reported Ears, Nose, Mouth & Throat: reports: no symptoms reported Cardiovascular: reports: no symptoms reported Respiratory: reports: no symptoms reported Gastrointestinal: reports: diarrhea, nausea, vomiting. denies: abdominal pain Genitourinary: reports: no symptoms reported Musculoskeletal: reports: muscle weakness. denies: back pain, neck pain Integumentary: reports: no symptoms reported Neurological: reports: no symptoms reported Psychiatric: reports: no symptoms reported Endocrine: reports: no symptoms reported Hematologic/Lymphatic: reports: no symptoms reported Allergic/Immunologic: reports: no symptoms reported All Other Systems: Reviewed and Negative Past History - Adult - PAST MEDICAL HISTORY-ADULT Review of Records: reports: Nursing Assessment Review, Medications Reviewed, Social history reviewed & non-contributory. Major Childhood Illnesses: reports: denies history Cardiovascular: reports: HTN Respiratory: reports: denies history Gastrointestinal: reports: denies history Obstetrical/Gynecological: reports: denies history Genitourinary: reports: dialysis (MWF), kidney disease Musculoskeletal: reports: denies history Neurological: reports: denies history Endocrine/Immune: reports: Diabetes Other Conditions: reports: denies history - PRIOR SURGERIES/PROCEDURES Surgical/Procedure History: reports: reviewed, not pertinent, joint replacement - IMMUNIZATION STATUS Childhood Immunizations: See Nurse Assessment Flu Vaccine: See Nurse Assessment - FAMILY HISTORY Family History: reviewed, not pertinent - SOCIAL HISTORY Smoking: quit greater than 1 year, cigarettes Substance Use: denies Living Situation: family Physical Exam-General - PHYSICAL EXAM-ADULT Initial Vital Signs Reviewed: Yes - CONSTITUTIONAL General Appearance: alert, no apparent distress. negative: lethargic, slow to respond - EYES Eyes: PERRL/EOMI, pink conjunctivae. negative: pale conjunctivae, sunken eyes - HEAD, EARS, NOSE, MOUTH & THROAT HENMT: normal ENT inspection. negative: angioedema, hearing deficit - NECK Neck: normal inspection. negative: lymphadenopathy, tender lateral - RESPIRATORY Respiratory: chest non-tender, lungs clear, normal breath sounds. negative: crackles, stridor, increased rate - CARDIOVASCULAR Cardiovascular: normal peripheral pulses, regular rate, rhythm. negative: tachycardia, systolic murmur - GASTROINTESTINAL (ABDOMEN) Abdominal Exam: normal bowel sounds, non tender, soft. negative: distended, rebound - LYMPHATIC Lymphatic: no adenopathy. negative: enlargement, streaking - MUSCULOSKELETAL Back Exam: normal inspection. negative: ecchymosis, swelling Extremity: normal inspection. negative: deformity, erythema, swelling - SKIN Integumentary: normal color, normal turgor, warm/dry. negative: ecchymosis, erythema, jaundice, rash - NEUROLOGIC Neurologic: grossly normal. negative: aphasia, facial droop - PSYCHIATRIC Psych/Mental Status: normal mood/affect, oriented x 3. negative: paranoid, tearful Progress - PLAN OF CARE/RESULTS Progress/Plan/Lab Results: Vital Signs - 8 hr 11/29/16 11:02 Temperature 98.4 F Pulse Rate 99 H Respiratory Rate 20 Blood Pressure 205/68 O2 Sat by Pulse Oximetry 96 Result Diagrams: 11/29/16 11:51 11/29/16 11:51 - XRAY 1 XRAY Study: Abdomen Impression: Abnormal XRAY Interpretation: Severe constipation of the descending and transverse colon - CONSULTS/PCP/HOSPITALIST Notification #1 *Consult/PCP/Hospitalist*: LUL Gentile for Hospitalist Time Discussed: 15:09 (Dr. Mcrae acccpted Pt ) Reason/Comments: Dr. Jonas consulted with LUL Gentile about Pt Consult Disposition: Admit #2 Consult: Dr. Mccollum Time Discussed: 15:09 Reason/Comments: Dr. Jonas consulted with about Pt Departure - Departure Date of Disposition Decision: 11/29/16 Time of Disposition Decision: 15:10 DIAGNOSIS: Volume depletion, Constipation, Renal disease, Dehydration Disposition: ADMITTED INPATIENT 09 Certified Medical Emergency: Emergent Condition: Stable Referrals and Follow-Ups: Froylan Mccollum [Primary Care Provider] - - Critical Care Note This patient required my direct & personal management of CC.: No Attestation - Physician/ SONYA Attestation Patient care was provided by Advanced Practice Provider:: No The physician spent face to face time with patient:: Yes Advanced Practice Provider documentation review:: Supervising physician onsite and consulted in the evaluation and care of this patient. The physician did have a face to face encounter with the patient. This chart was documented by the indicated scribe, (Dorene Jones Scribe) and accurately reflects the services I performed and decisions made by me, Alessandro Jonas MD, as attested by the provider's signature.
[2016-11-29] MEDS ORDERED: ZOSYN 2.25 GM in NS 50 ML IV ONE (16:17)
[2016-11-29] MEDS ORDERED: VANCOMYCIN 1 GM/NS 1 GM/250 ML IVPB IV ONE (16:18)
[2016-11-29] MEDS ORDERED: FLEET MINERAL OIL ENEMA PR ONE (16:20)
--- NOTE | 2016-11-29 17:03 | Diag Imaging Result Doc PS360 ---
CT THORAX/ABD/PELVIS W/O CONT - 11/29/2016 INDICATION: abdominal pain/leukocytosis TECHNIQUE: A CT dose reduction protocol was used. COMPARISON: 08/03/2016 FINDINGS: CHEST: Stable COPD changes. Stable scarring in the posterior right lower lobe. No new or focal infiltrates. Stable severe vascular disease of the aorta and coronary arteries. Heart size is top normal. Abdomen pelvis: There is severe wall thickening of the splenic flexure of the colon with some slight surrounding edema. This involves most of the descending colon as well. There is trace pelvic free fluid. No free air. Normal appendix. There is fecal impaction of the descending colon. No small bowel obstruction. No radiodense renal stones. No hydronephrosis or hydroureter. There is severe calcified vascular disease of the abdominal aorta and its branches. There are moderate degenerative changes of the spine. No acute or suspicious bony lesion. IMPRESSION: 1. No acute process in the chest. 2. Severe colitis of the splenic flexure and descending colon. Correlate for possible ischemic colitis. Trace pelvic free fluid. No free air. 3. Moderate constipation of the ascending colon. Electronically signed by Juan Silva 11/29/2016 5:01 PM
--- NOTE | 2016-11-29 17:32 | HISTORY AND PHYSICAL ---
PRIMARY CARE PROVIDER: Dr. Froylan Mccollum ADJUTANT GENERAL: Dr. Horacio Pugh CHIEF COMPLAINT: Diarrhea and hematochezia. HISTORY OF PRESENT ILLNESS: Mr. Urrutia is a 66-year-old male, with a history of ESRD, on hemodialysis Wednesday, Wednesday, Wednesday, type 2 diabetes, hypertension and others, who presents with nausea, vomiting and diarrhea that began Wednesday. His states that he has been having uncontrolled diarrhea multiple times a day and has not been eating well. He has also been having episodes of vomiting. The reports this morning he had bright-red blood in the toilet, and this prompted her to bring him to the ER. The patient is complaining of some mild epigastric discomfort, but no overt pain. He does report some mild discomfort when he is having bowel movements. He was actually admitted to our facility 3 months ago for encephalopathy and nausea vomiting. He was seen by Dr. Millan at that time and had endoscopy done which revealed gastritis, but nothing acute. Today in the ER, he had labs and diagnostics done. Abdomen x-ray showed severe constipation. His lab work was significant for leukocytosis, with a white count of 22 with a left shift. PAST MEDICAL HISTORY: 1. End stage renal disease on hemodialysis. 2. Diabetes Mellitus type 2 3. Hypertension. 4. GERD. 5. Hyperlipidemia. 6. History of DVT. 7. PAD. 8. Chronic anemia. 9. Osteoarthritis. 10. Depression. SURGICAL HISTORY: Left AV fistula, right hip fracture repair and right hip replacement. SOCIAL HISTORY: The patient has remote history of smoking. He denies alcohol or drug use. He is , is at the bedside. He is still living at home. FAMILY HISTORY: Significant for mesothelioma in his father. His mother had a history of CAD and macular degeneration. ALLERGIES: No known drug allergies. HOME MEDICATIONS: Norvasc 5 mg b.i.d., vitamin C 500 mg p.o. daily, calcium acetate 1334 mg before meals, vitamin D3 at 1000 units p.o. as directed, vitamin B12 at 1000 mcg p.o. daily, Lexapro 20 mg b.i.d., iron sulfate 65 mg daily, fish oil 1 daily, Apresoline 25 mg every 8 hours, Lantus 22 units subcutaneous at bedtime, Protonix 40 mg daily, Zocor 40 mg p.o. at bedtime, Hytrin 10 mg at bedtime. REVIEW OF SYSTEMS: A 12 point review of systems was done all were negative except for the pertinent positives and negatives mentioned in the HPI. PHYSICAL EXAMINATION: VITAL SIGNS: Blood pressure is 205/68, heart rate 99, respiratory rate is 20, O2 saturation 96% on room air, temperature is 98.4 degrees. GENERAL: This is a chronically ill-appearing, 66-year-old male, lying in hospital bed in no apparent distress. INTEGUMENTARY: No rash, no lesions, normal capillary refill HEENT: Head is atraumatic, normocephalic. His pupils are equal, round, reactive to light. His oral mucosa is moist. NECK:supple, trachea is midline, no bruits, CARDIOVASCULAR: Regular rate and rhythm. S1 and S2 are noted. No murmurs. RESPIRATORY:Clear to auscultation bilaterally. Diminished at the bases. Equal air entry bilaterally. GASTROINTESTINAL: Soft and nondistended. Mild epigastric tenderness to palpation. EXTREMITIES: No edema, clubbing, or cyanosis. Pulses are diminished, but palpable bilaterally. NEUROLOGIC: The patient is somewhat lethargic, but he answers questions correctly, albeit with considered amount of time taken. No focal neurological deficits noted. DIAGNOSTIC DATA: Abdomen x-ray shows severe constipation. WBC 22.43, hemoglobin 10.9, hematocrit 33.2, platelet count 407,000. Sodium 139, potassium 4.5, chloride 94, CO2 24, anion gap 21, BUN 45, creatinine 6.6, glucose 203, calcium 9.7. T bilirubin 0.54, AST 14, ALT 9, alkaline phosphatase 73, albumin 4. CT thorax/abdomen/pelvis: Severe colitis of the splenic flexure and descending colon. Moderate constipation. ASSESSMENT/PLAN: 1. Ischemic colitis. A CT of the abdomen and pelvis shows probable ischemic colitis. GI and general surgery will be consulted and the patient will be started on IV antibiotics. 2. Leukocytosis. The patient will be cultured and antibiotics will be started. 3. Hypertension: Will continue his medicines and add IV p.r.n. medications. 4. End-stage renal disease, on hemodialysis: Dr. Pugh has been consulted. He is scheduled for dialysis tomorrow. 5. Diabetes mellitus: Chronic and stable. Continue home medications. Add pattern sugars, sliding-scale insulin. 6. Encephalopathy: The patient has clear slowing of his cognitive status, but he does not exhibit any focal deficits. This was evaluated last visit and it does not appear any overt etiologies were uncovered. We are looking at his urine for infectious process, as well as stool. 7. Deep vein thrombosis prophylaxis. Will start SCDs Dictated by LUL Beltrán for Leatha Mcrae MD cc: LUL Beltrán MD Nixon Gillespie, MD I have personally performed a face to face diagnostic evaluation on this patient. I have reviewed and agree with the assessment and plan. The patient presented with a 3 day history of diarrhea, abdominal pain and hematochezia. On exam the patient was noted to be tender in the epigastric and left upper quandrant. His WBC is elevated at 22. Will plan to consult the general surgeon, digital strategy director, and dye house vat worker. The patient will be started on IV zosyn and flagyl after cultures have been obtained. MTDD
--- NOTE | 2016-11-29 17:50 | Diag Imaging Result Doc PS360 ---
CHEST-PORTABLE - 11/29/2016 INDICATION: dyspnea TECHNIQUE: COMPARISON: CT from an hour ago FINDINGS: The lungs are clear. IMPRESSION: Negative exam. Electronically signed by Juan Silva 11/29/2016 5:47 PM
[2016-11-29] MEDS ORDERED: ZOSYN 2.25 GM in NS 50 ML IV SCH (18:15)
[2016-11-29] MEDS ORDERED: LABETALOL IV PRN (19:03)
--- NOTE | 2016-11-29 19:18 | CONSULTATION ---
DATE OF CONSULTATION: 11/29/2016 REFERRING PHYSICIAN: Seferino Moise M.D. PRIMARY HOSPITALIST: Leatha Mcrae M.D. PRIMARY CARE PROVIDER: Yves Mccollum M.D. PRIMARY NURSE INSTRUCTOR: Jerman Millan M.D. PRIMARY IMPRESSION PRINTER: Horacio Pugh M.D. INDICATION FOR CONSULTATION: 1. Abdominal pain. 2. Diarrhea. 3. Hematochezia. 4. CT scan findings suggestive of mesenteric ischemia. 5. Constipation. HISTORY OF PRESENT ILLNESS: Mr. Urrutia is a 66-year-old white male who has end -stage renal disease secondary to diabetes and hypertension. He is currently on dialysis every Wednesday, Wednesday and Wednesday. He was in his usual state of health until Wednesday where he developed abdominal pain, diarrhea and failure to thrive following this dialysis on Wednesday. Over the weekend, he continued to have nausea with vomiting and diarrhea. This morning he had an episode of hematochezia that resulted in his bringing him to the emergency room. He describes epigastric and left upper quadrant pain. He has some mild periumbilical discomfort. He states he had similar episode 3 months ago. His EGD was essentially negative except for some mild gastritis. He was scheduled to undergo an outpatient colonoscopy which has not yet been done. It should be noted that the CT scan on admission is remarkable for severe acute colitis in the splenic flexure and descending colon with trace pelvic fluid. These findings are consistent with possible mesenteric ischemic colitis. In addition, he has severe constipation in the ascending colon. His right colon does not appear to be normal and is slightly thickened on CT scan. There is some bowel wall edema around the left colonic segments that are inflamed. Because of his symptoms, we are asked to participate in his care. PAST MEDICAL HISTORY: 1. End-stage renal disease on dialysis every Wednesday, Wednesday, Wednesday. 2. Diabetes 2. 3. Hypertension. 4. GERD. 5. Hyperlipidemia. 6. History of DVT. 7. Peripheral artery disease. 8. Chronic anemia. 9. Osteoarthritis. 10. Depression. PAST SURGICAL HISTORY: 1. Left AV fistula. 2. Right hip fracture status post repair and right hip replacement. 3. The patient has a stent in his left groin due to vascular disease the left lower extremity. SOCIAL HISTORY: The patient previously smoked but has not smoked in "years. " He denies alcohol use although he had social alcohol in the past. He denies drug use. He is and lives at home. FAMILY HISTORY: Negative for colon cancer. His mother had coronary artery disease and macular degeneration. His father had mesothelioma. MEDICATION ALLERGIES: None. HOME MEDICATIONS: 1. Norvasc. 2. Vitamin C. 3. Calcium acetate. 4. Vitamin D3. 5. B12. 6. Lexapro. 7. Iron sulfate. 8. Fish oil capsule daily. 9. Apresoline. 10. Lantus. 11. Protonix. 12. Zocor. 13. Hytrin. PHYSICAL EXAM: General: He appears uncomfortable but is in no acute distress. Vital Signs: His blood pressure is 187/78, pulse 100, respiration 18, temperature of 98.5 degrees. HEENT: Reveals anicteric sclerae. His conjunctivae are slightly pale. His oropharyngeal mucosal membranes are moist. Pulmonary: Lungs are clear to auscultation with normal respiratory effort. There are mild decreased breath sounds in the bases bilaterally. Cardiovascular: Reveals regular rate and rhythm with no murmurs, gallops, or rubs. Abdominal Exam: Reveals epigastric and left upper quadrant tenderness that is moderate. He has mild periumbilical tenderness. Extremities: Bilaterally are negative for cyanosis, clubbing or edema. The pulses are present but somewhat difficult to feel. OBJECTIVE DATA: Remarkable for the CT scan findings as noted above. In addition, his hemoglobin is 10.9 with hematocrit of 33.2 and white count of 22.43. He has 407,000 platelets. His sodium is 139, potassium 4.5, chloride 94, CO2 24, BUN 45, creatinine 6.6 and glucose of 203. Calcium is 9.7, total bilirubin 0.54, AST 14, ALT 9, alkaline phosphatase 73, total protein 7.0, albumin 4.0. His CRP is 185.59. His BNP is 9780. His plasma lactate is 0.7. His vitamin D 25 hydroxy is 37.4. IMPRESSION: 1. Acute colitis on CT scan consistent with mesenteric ischemia. 2. Constipation. 3. Anemia. 4. Nausea with vomiting. 5. Diarrhea. 6. Abdominal pain. RECOMMENDATION: 1. The patient is currently receiving oral Protonix. Given his nausea with vomiting and epigastric pain, I will change his Protonix to IV and check stool studies for H. pylori antigen. He was noted to have gastritis on his previous endoscopy. 2. The CT scan suggests mesenteric ischemia as does his physical exam. Therefore, I recommend broad-spectrum antibiotics. Dr. Pizano and I evaluated the patient at the same time. He has been placed on Flagyl, Zosyn and vancomycin. 3. I will order a CT angiogram in the morning to confirm the diagnosis of mesenteric ischemia. 4. He may require surgical intervention if he has a decline in his clinical condition. At this time Dr. Pizano and I are both encouraging conservative management. 5. I recommend the patient remain NPO tonight pending possible surgical intervention. 6. Given that the patient has diarrhea stool studies have been ordered to assess for C. difficile infection. 7. Dr. Jerman Millan will return in the morning to assume care of this patient. cc: MD Jerman Baer MD Katherine Takundwa, MD MTDD
[2016-11-29] MEDS: FLAGYL 500 MG/NS 500 MG/100 ML IVPB IV SCH ×2 (19:53→23:54)
--- NOTE | 2016-11-29 20:08 | CONSULTATION ---
DATE OF CONSULTATION: 11/29/2016 HISTORY OF PRESENT ILLNESS: This is a 66-year-old male with multiple medical problems including end-stage renal disease, peripheral vascular disease, hypertension, and diabetes. He presents with approximately three days of vague abdominal pain and diarrhea. It became a little more bloody today prompting his admission to the emergency department. He was admitted. In the emergency department, he was found to be profoundly hypertensive with blood pressure 200/68. He had a white count of 22,000. CT scan was obtained that showed thickening of his distal transverse descending colon but really somewhat abnormal-looking right colon as well and calcific disease throughout. He dialyzes Wednesday, Wednesday, and Wednesday via left upper arm AV fistula. MEDICAL HISTORY: As mentioned. 1. End-stage renal disease secondary to hypertension. 2. Hypertension. 3. Diabetes. 4. Gastroesophageal reflux. 5. Hyperlipidemia. 6. History of DVT. 7. Peripheral arterial disease. 8. Chronic anemia. 9. Arthritis. 10. Depression. SURGICAL HISTORY: A left arteriovenous fistula. No abdominal surgeries. Had a right hip fracture repair via replacement. SOCIAL HISTORY: Distant history of smoking. Denies alcohol or drugs. He is . His is here with him. He lives at home. FAMILY HISTORY: Mesothelioma, coronary artery disease, and macular degenerations. REVIEW OF SYSTEMS: Ten point negative other than what is mentioned in HPI. MEDICATIONS: Extensive list. Mostly antihypertensive agents and insulin and then taking blood thinners. PHYSICAL EXAMINATION: Vital Signs: Temperature 98.5. Pulse have been in the high 90s and 102 at the maximum. Blood pressure is 205/68. When he got here, it was 187/70. Oxygen saturation 97% on room air. General: This is a chronically ill-appearing, thin gentleman but alert in no acute distress. HEENT: There is no scleral icterus. I do not see any cervical masses. Cardiovascular: Normal rate, regular rhythm. Pulmonary: No increased work of breathing on room air. Abdomen: Soft, nontender, nondistended. There is no peritonitis. There is no guarding. There is no rebound. He is nondistended. Peripheral vascular: He has got palpable pedal pulses, and his feet are well perfused. The left upper arm AV fistula with a strong thrill. Neurologic: I do not see any focal deficits. Psychiatric: Appropriate affect. Lymphatics: There is no cervical or axillary lymphadenopathy. Musculoskeletal: He is thin throughout but seems to have normal strength and range of motion grossly. LABORATORY DATA: White count 22, hematocrit 33, platelets 407,000. Creatinine 3.6. Bicarb is 24. G Glucose is 203. LFTs are normal. CRP is elevated at 185. BNP is elevated at 9780. Albumin is normal at 4. Lactate 0.7. CT of the abdomen and pelvis without contrast shows severe colitis of the splenic flexure and descending colon and some constipation of the ascending colon. ASSESSMENT AND PLAN: This is a 66-year-old male with multiple medical issues of end-stage renal disease who presents with diarrhea which became bloody today and some mild abdominal pain. His his exam is very benign. He is hemodynamically stable, but he is quite hypertensive. His white count is elevated at 22. Obvious concerns for possibility of ischemic colitis although, his exam is less concerning for this. I do not see any signs of toxic colitis. I think it is reasonable to treat him with supportive care, bowel rest, and antibiotics currently. We will check a regimen of stool studies, C. difficile. Dr. Bone is ordering these at this current moment. In the meantime, we will start treating him for C. difficile. He would be at high risk for jason this given his dialysis and hospitalization. Unsure when his last colonoscopy was, but he has had an EGD recently by Dr. Millan that was reportedly without ulcers. CT angiogram would not be unreasonable at some point, but currently given his normal lactic and benign exam I suspect that this is most likely an infectious colitis but will continue to monitor him closely. I had a long discussion with patient and his family. If we were to have to operate emergently, most definitely needs left colon resection if not a total colectomy with permanent colostomy. We did discuss possibility if this is ischemic in nature that he could develop a stricture in the future. I would advise against any endoscopic intervention at this point. No enemas from below. Strict bowel rest, n.p.o., antibiotics, and IV fluids. We will continue to follow along for this gentleman. cc: Vandana Pizano MD
[2016-11-29] MEDS: NORVASC PO SCH (20:53)
[2016-11-29] MEDS: ZOCOR PO SCH (20:53)
[2016-11-29] MEDS: HYTRIN PO SCH (20:53)
[2016-11-29] MEDS: APRESOLINE PO SCH (20:53)
[2016-11-29] MEDS: SODIUM CHLORIDE 0.9% INJ SCH (20:54)
[2016-11-29] MEDS: PROTONIX IV SCH (20:54)
[2016-11-29] MEDS: LEXAPRO PO SCH (20:54)
[2016-11-29] MEDS: HUMULIN R SUBQ SCH (21:45)
[2016-11-29] MEDS: ZOSYN 2.25 GM in NS 50 ML IV SCH (23:26)
[2016-11-29] MEDS: LANTUS SUBQ SCH (23:41)
[2016-11-30] MEDS: APRESOLINE PO SCH ×3 (05:19→21:00)
[2016-11-30] MEDS: FLAGYL 500 MG/NS 500 MG/100 ML IVPB IV SCH ×3 (05:19→17:40)
--- NOTE | 2016-11-30 05:33 | EKG Report ---
Test Performed on : 11/29/2016 5:33:29 PM Test Reason : tachycardia Blood Pressure : / mmHG Vent. Rate : 102 BPM Atrial Rate : 102 BPM P-R Int : 170 ms QRS Dur : 094 ms QT Int : 360 ms P-R-T Axes : 071 035 040 degrees QTc Int : 469 ms Sinus tachycardia. Possible Left atrial enlargement Nonspecific ST abnormality Abnormal ECG When compared with ECG of 01-JUN-2016 06:18, Nonspecific T wave abnormality no longer evident in Lateral leads Nonspecific ST depression inferior and far lateral leads Confirmed by Maurice Lind DO ([id number]) on 12/01/2016 5:57:29 PM
[2016-11-30] MEDS: HUMULIN R SUBQ SCH ×4 (06:01→21:40)
[2016-11-30] MEDS: PHOSLO PO SCH ×3 (06:41→17:07)
[2016-11-30] MEDS: ZOSYN 2.25 GM in NS 50 ML IV SCH ×3 (06:47→22:35)
[2016-11-30 06:54] LABS: MANUAL DIFF NEEDED? NO
[2016-11-30 07:03] LABS: BASO% 0.1 % (0.0-0.8); EOS# 0.11 X1000 (0.0-0.7); EOS% 0.7 % (0.0-10.0); HEMATOCRIT 27.8 % (42.0-52.0); HEMOGLOBIN 9.2 g/dL (14.0-18.0); IMM GRAN# 0.05 X1000 (0.0-0.04); IMM GRAN% 0.3 % (0.0-0.5); LYMPH# 1.36 X1000 (1.2-3.4); LYMPH% 8.2 % (20.5-51.1); MCH 31.5 PG (27-31); MCHC 33.1 g/dL (33-37); MCV 95.2 FL (81-99); MONO# 1.32 X1000 (0.11-0.59); MPV 9.1 FL (7.4-10.4); NEUT% 82.7 % (42.2-75.2); PLT 369 X1000 (130-400); RBC 2.92 XMIL (4.7-6.1)
[2016-11-30 07:08] LABS: CALCIUM 8.8 mg/dL (8.8-10.2); POTASSIUM 3.7 mmol/L (3.5-5.1)
[2016-11-30] MEDS ORDERED: NS 2,000 ML MISC PRN (07:47)
[2016-11-30] MEDS ORDERED: HEPARIN IV PRN (07:47)
[2016-11-30] MEDS ORDERED: TIGHT: 0.2 ML/HR MISC PRN (07:47)
[2016-11-30] MEDS: PROTONIX IV SCH ×2 (08:59→20:59)
[2016-11-30] MEDS: VITAMIN B-12 PO SCH (08:59)
[2016-11-30] MEDS: NORVASC PO SCH ×2 (08:59→21:00)
[2016-11-30] MEDS: VITAMIN C PO SCH (08:59)
[2016-11-30] MEDS: SODIUM CHLORIDE 0.9% INJ SCH ×2 (08:59→20:59)
[2016-11-30] MEDS: LEXAPRO PO SCH ×2 (08:59→21:00)
[2016-11-30] MEDS: FISH OIL CONCENTRATE PO SCH (08:59)
[2016-11-30] MEDS: VITAMIN D PO SCH (08:59)
[2016-11-30] MEDS ORDERED: DHA PO SCH (09:00)
[2016-11-30] MEDS ORDERED: FISH OIL PO SCH (09:00)
[2016-11-30] MEDS ORDERED: EPA PO SCH (09:00)
[2016-11-30] MEDS ORDERED: PROTONIX PO SCH (09:00)
[2016-11-30] MEDS: NS 1,000 ML IV SCH (09:21)
[2016-11-30] MEDS: CENTRUM SILVER PO SCH (09:21)
[2016-11-30] MEDS: ICAR-C PO SCH ×2 (09:21→21:00)
[2016-11-30] MEDS: EPOGEN SUBQ SCH (09:21)
--- NOTE | 2016-11-30 09:44 | Diag Imaging Result Doc PS360 ---
EXAM: CT ANGIOGRAM/MESENTERIC ARTERY HISTORY: probable mesenteric ischemia on CT scan TECHNIQUE: CT angiography of the abdomen with intravenous contrast, 3-D MIPS and dose reduction.. COMMENT: There is bilateral lower lobe atelectasis in the posterior costophrenic sulci worse on the right than the left. There is pericholecystic fluid. There is flash contrast filling of a hemangioma in the inferior right hepatic lobe. There is bilateral renal atrophy. There is poor distention and apparent mucosal thickening throughout the left colon. There is extensive atherosclerotic calcification in the aorta and its branches. There is mild narrowing of the proximal celiac artery which is apparently congenital. Dense calcification is present at the ostium of the superior mesenteric artery, which is otherwise patent there is some apparent stenosis in some of the small vessels serving the ascending colon and particularly on the left side. The marginal artery is not demonstrated in its entirety. There is a possibility of opacification of branches of the middle colic. The inferior mesenteric artery is patent, however the small vessels to the left, distal descending colon are very threadlike in appearance. No definite stenosis is present. The renal arteries are patent. There is a small accessory renal artery on the right and there are two left renal arteries. Dense calcification and apparent stenosis is present in the distal left common femoral artery. There is calcification in the common iliac arteries bilaterally with mild stenosis of the left proximal common iliac. IMPRESSION: Ischemic colitis in the left colon, probably due to small vessel disease. Extensive atherosclerosis as described. Electronically signed by Mushtaq Vigil 11/30/2016 9:42 AM
--- NOTE | 2016-11-30 10:43 | PROGRESS NOTE ---
DATE: 11/30/2016 SUBJECTIVE: The patient is resting in bed. His is at the bedside. He denies any fevers, rigors, chills. He complains of nausea but he denies any vomiting. He denies having any bowel movements this morning. He denies any vomiting blood or passing blood in the stools this morning. OBJECTIVE: Vital Signs: Temperature 98.2 degrees, pulse rate of 86, respiratory rate 18, blood pressure 152/65, saturating 93% on 2 L nasal cannula . General Appearance: Moderately built, moderately nourished, lying in bed, in no acute distress. HEENT: Mild pallor. No icterus. Neck: Supple: Abdomen: Sore in the periumbilical area and left upper quadrant. Bowel sounds are hypoactive. No guarding. Extremities: No cyanosis, clubbing. Neurologic : He is alert, awake, oriented. Labs: Hemoglobin and hematocrit are 9.2 and 27.8, white count of 16.53, platelet count of 369,000. Sodium 141, potassium 3.7, chloride 98, bicarb 20, anion gap of 22, BUN of 55, creatinine of 7.7, glucose of 109, calcium is 8.8, phosphorus 6.8. AST 14, ALT 9, alkaline phosphatase 72, total protein 7, albumin of 3. CRP is 185.59. Mesenteric angiogram done this morning showed ischemic colitis in the left colon, probably due to small vessel disease. Extensive atherosclerosis is described and dense calcification with possible stenosis in the distal left femoral artery. IMPRESSION AND PLAN: 1. Ischemic colitis of the left colon. I will continue with the current management. We will start him on ice chips and we will start on clear liquid diet if okay with the surgical team. We will continue antibiotics with intravenous Zosyn. Intravenous proton pump inhibitors, intravenous pain control, and intravenous fluids. We will start him on normal saline at 50 mL per hour. 2. Gastrointestinal prophylaxis with proton pump inhibitors. 3. Anemia. I will continue watch and transfuse as needed. 4. Chronic renal disease, endstage renal disease on hemodialysis Wednesday, Wednesday, Wednesday per Dr. Pugh. 5. Severe atherosclerosis. The patient is at a high risk of vascular insufficiency in the legs. This probably needs to be evaluated by a vascular surgical team as an outpatient. 6. Continue him on multivitamin once daily and Iron C twice a day. 7. Once the patient heals from colitis, he will need an outpatient colonoscopy in 4-6 weeks. 8. Constipation. The patient will be started on MiraLAX twice daily once he is able to start orally. 9. The above plan of care was discussed with the patient and family. cc: MD Brian Mejia MD Nixon Gillespie, MD R. Tyler Harney, MD MTDD
[2016-11-30] MEDS ORDERED: NS 2,000 ML ONE (11:17)
[2016-11-30] MEDS ORDERED: HEPARIN ONE (11:17)
--- NOTE | 2016-11-30 13:00 | PROGRESS NOTE ---
DATE: 11/30/2016 The patient was admitted yesterday. A 66-year-old. He presented with abdominal pain, diarrhea, and hematochezia. CT findings suggestive of mesenteric ischemia and constipation. A 66-year-old who has end-stage renal disease, secondary to diabetes and hypertension, and currently on dialysis Wednesday, Wednesday, and Wednesday. Usual state of health until Wednesday. He developed abdominal pain, diarrhea, failure to thrive following dialysis. Over the weekend he continued having nausea, vomiting, and diarrhea. The morning of admission, he had an episode hematochezia and brought him to the emergency room. CT scan suggested mesenteric ischemia, acute colitis. Continue present fluids. The nausea is better. Dr. Pizano and Dr. Bone are following. We will continue broad-spectrum antibiotic. He is on Flagyl, Zosyn, and vancomycin. CT angiogram was ordered and done this morning. Mesenteric arteriogram showed ischemic colitis in left colon, probably due to small vessel disease. Extensive atherosclerosis described. #3 History of gastroesophageal reflux. #4 History of DVT. #5 Peripheral arterial disease. #6 Chronic anemia. #7 osteoarthritis. #8 history of depression. Note that he has end-stage renal disease, secondary to hypertension and diabetes. Follow his blood sugars. I have looked at his orders. cc: Brian Barahona MD
--- NOTE | 2016-11-30 16:59 | PROGRESS NOTE ---
DATE: 11/30/2016 SUBJECTIVE: Feels better. His pain is better. No nausea or vomiting. No fevers overnight. OBJECTIVE: Vital Signs: T-max was 98.2 degrees, pulse is 86, blood pressure 152/55, oxygen saturation has been in the low 90s on 2 L. General: He is alert, in no acute distress. HEENT: No scleral icterus. Abdomen: Soft, nontender with no peritoneal signs. No guarding or rebound. LABS: White count down to 16, hematocrit 27, platelets are 369, creatinine is 7.7, glucose 115. ASSESSMENT/PLAN: A 66-year-old male with multiple medical issues, who presented with left-sided colitis. This is most likely ischemic. His Clostridium difficile was negative, but I do not think it is full thickness. We will continue to monitor and treat him with bowel rest, antibiotics and nonoperative management for now. If his condition turns, will need to reassess and most likely would need a descending colectomy with end colostomy. I have discussed plan with patient's family and they understand. Dr. Millan is following and agrees as well. We will continue to follow along. cc: Vandana Pizano MD
--- NOTE | 2016-11-30 17:34 | CONSULTATION ---
DATE OF CONSULTATION: 11/30/2016 REASON FOR ADMISSION: Abdominal pain, constipation, ischemic versus infectious colitis. CONSULTING PHYSICIAN: Leatha Mcrae MD REASON FOR CONSULTATION: Assist with medical management, end-stage renal disease management. HISTORY OF PRESENT ILLNESS: This is a 66-year-old gentleman, well known to our service for end- stage renal disease on a Wednesday, Wednesday, Wednesday schedule. His states that since Wednesday he has had constipation with liquid stool over the weekend. He developed nausea and vomiting. He was brought into the emergency room. He had scans that indicated he had ischemic bowel. He had surgery and GI consult and was admitted to the hospital for further workup and treatment. We have been asked to see him to assist with management and to manage his dialysis. PAST MEDICAL HISTORY: End-stage renal disease on dialysis Wednesday, Wednesday, and Wednesday, diabetes type 2, hypertension, gastroesophageal reflux disease, hyperlipidemia, history of deep venous thrombosis, peripheral artery disease, chronic anemia, osteoarthritis, and depression. PAST SURGICAL HISTORY: He has an AV fistula left upper extremity, right hip fracture, open reduction and internal fixation, stent in his left groin for vascular disease. ALLERGIES: No known drug allergies. HOME MEDICATIONS: Fish oil, vitamin C, iron, Hytrin, Zocor, Lantus, vitamin D3 , calcium acetate, Lexapro, vitamin B12, Norvasc, Apresoline, and Protonix. This. FAMILY HISTORY: Negative for current admission. SOCIAL HISTORY: He is . No current tobacco use. Has smoked in the past. No ETOH or illicit drug use. REVIEW OF SYSTEMS: Pertinent positives noted above in the history of present illness.Vital Signs: Temperature 98.2 degrees, pulse 86, respiratory rate 18, blood pressure 152/55. Intake 400 mL. Output not measured. General: This is a chronically ill-appearing middle-aged gentleman resting in bed. He is awake and alert, in no acute distress. HEENT: Normocephalic, atraumatic. Conjunctivae pale. Oral mucosa moist. Neck: Supple. Trachea midline. No jugular venous distention. Cardiovascular: Regular rate and rhythm. No murmur or gallop. Pulmonary: Equal excursion is clear bilaterally. No increased work of breathing on room air. Abdomen: Soft. Mildly distended. Minimal scattered tenderness. Positive bowel sounds. Genitourinary: Not inspected. He has minimal void with hemodialysis assist. Extremities: No clubbing, cyanosis, or edema. He has a positive thrill to his fistula to the left upper arm. Integumentary: Skin is warm and dry. Neurological: Grossly nonfocal. LAB DATA: WBC of 16.5, hemoglobin 9.2, hematocrit 27.8, and platelet count of 369,000. Sodium 141, potassium 3.7, CO2 21, creatinine 7.7, phosphorus 6.8. Clostridium difficile antigen and toxin both negative. IMAGING: As per chart. ASSESSMENT AND PLAN: 1. End-stage renal disease management. Today is his routine dialysis day. We will plan to dialyze him on a 3K bath/UF to dry weight/3.5 hour treatment. We will maintain him on this dialysis therapy while he is in the hospital unless otherwise warranted. 2. Electrolytes, acid-base balance. These are in target. 3. Anemia. Continue EPO on dialysis days. 4. Ischemic colitis, followed by primary surgery and GI. Dictated by LUL Gracia for Horacio Pugh MD Patient seen during dialysis, data reviewed, discussed with Hesham Newell on . I agree with the above assessment and plan of care. cc: Horacio Pugh MD [facility]
[2016-11-30] MEDS: ZOCOR PO SCH (21:00)
[2016-11-30] MEDS: HYTRIN PO SCH (21:00)
[2016-11-30] MEDS: LANTUS SUBQ SCH (23:26)
[2016-12-01] MEDS: FLAGYL 500 MG/NS 500 MG/100 ML IVPB IV SCH ×4 (00:37→17:23)
[2016-12-01] MEDS: PHOSLO PO SCH ×3 (06:20→17:12)
[2016-12-01] MEDS: APRESOLINE PO SCH ×3 (06:20→22:08)
[2016-12-01 06:37] LABS: MANUAL DIFF NEEDED? NO
[2016-12-01] MEDS: HUMULIN R SUBQ SCH ×4 (06:42→22:12)
[2016-12-01 06:43] LABS: BASO% 0.4 % (0.0-0.8); EOS# 0.17 X1000 (0.0-0.7); EOS% 1.5 % (0.0-10.0); HEMATOCRIT 31.1 % (42.0-52.0); HEMOGLOBIN 10.2 g/dL (14.0-18.0); IMM GRAN# 0.02 X1000 (0.0-0.04); IMM GRAN% 0.2 % (0.0-0.5); LYMPH# 1.53 X1000 (1.2-3.4); LYMPH% 13.6 % (20.5-51.1); MCH 31.4 PG (27-31); MCHC 32.8 g/dL (33-37); MCV 95.7 FL (81-99); MONO# 1.01 X1000 (0.11-0.59); MPV 9.2 FL (7.4-10.4); NEUT% 75.3 % (42.2-75.2); PLT 364 X1000 (130-400); RBC 3.25 XMIL (4.7-6.1)
[2016-12-01 07:01] LABS: ALBUMIN 3.2 g/dL (3.5-5.0); CALCIUM 8.7 mg/dL (8.8-10.2); POTASSIUM 3.4 mmol/L (3.5-5.1)
[2016-12-01] MEDS: LEXAPRO PO SCH ×2 (08:29→22:08)
[2016-12-01] MEDS: NORVASC PO SCH ×2 (08:29→22:08)
[2016-12-01] MEDS: ZOSYN 2.25 GM in NS 50 ML IV SCH ×4 (08:29→15:48)
[2016-12-01] MEDS: PROTONIX IV SCH ×2 (08:29→22:07)
[2016-12-01] MEDS: FISH OIL CONCENTRATE PO SCH (08:30)
[2016-12-01] MEDS: VITAMIN B-12 PO SCH (08:30)
[2016-12-01] MEDS: CENTRUM SILVER PO SCH (08:30)
[2016-12-01] MEDS: ICAR-C PO SCH ×2 (08:30→22:08)
[2016-12-01] MEDS: VITAMIN D PO SCH (08:30)
[2016-12-01] MEDS: SODIUM CHLORIDE 0.9% INJ SCH ×2 (08:30→22:08)
[2016-12-01] MEDS: VITAMIN C PO SCH (08:30)
[2016-12-01] MEDS: NS 1,000 ML IV SCH ×2 (08:55→15:49)
--- NOTE | 2016-12-01 12:25 | PROGRESS NOTE ---
DATE: 12/01/2016 SUBJECTIVE: He is feeling okay, still has modest abdominal discomfort. No diarrhea. No chest pain. No nausea or vomiting. OBJECTIVE: Vital Signs: Blood pressure 125/42, heart rate 88, respiration 18, afebrile. General: He is in no acute distress. Skin: Warm and dry. Eyes: Conjunctivae are pink. Neck: Neck veins are not visible. Heart: Regular with a gallop. Lungs: Have equal breath sounds. No crackles. Abdomen: Soft, nontender. Bowel sounds present. Extremities: Have no edema, clubbing, or cyanosis. LABORATORY DATA: Sodium 140, potassium 3.4, chloride 97, bicarbonate 26, BUN 32, creatinine. 5.6. Hemoglobin 10.2. IMPRESSION: 1. Ischemic colitis. Supportive care. 2. End-stage renal disease. Next scheduled dialysis tomorrow. 3. Electrolytes/acid base/anemia. All in target. 4. Hypertension in target. cc: Horacio Pugh MD
--- NOTE | 2016-12-01 13:47 | PROGRESS NOTE ---
DATE: 12/01/2016 SUBJECTIVE: Doing very well. Hemodynamically stable overnight. OBJECTIVE: No fevers. No tachycardia. Blood pressure 159/59, O2 saturation 100% on nasal cannula. General: He is sleeping comfortably. Abdomen is soft, nontender, nondistended. Integument: Otherwise warm, dry. White count is 11, hematocrit 31, creatinine is 5.6. Bicarb is 26. ASSESSMENT AND PLAN: This is a 66-year-old male with left-sided colitis. It is clinically improving with antibiotics and nonoperative management. We will continue to monitor. I would be reasonable to give him some clear liquids. Low volume for comfort mostly will continue follow along as he is clinically improving. Goal due to avoid hypotension as we feel this is most likely on a low-flow etiology although his mesenteric vessels all seen patent. This could be a more distal issue. As long as he clinically improves, we will continue monitor. I do suspect that hypotension with dialysis would be a major contributing factor, and we will need to monitor this; otherwise, continue broad-spectrum antibiotics and bowel rest. But okay to give a clear liquids today. cc: Vandana Pizano MD
--- NOTE | 2016-12-01 17:19 | PROGRESS NOTE ---
DATE: 12/01/2016 Mr. Urrutia still feels pretty weak. He complained that he has not been able to sleep very well. Would like something for his sleep. He did tolerate physical therapy and I think he took a couple steps weightbearing. Temp 98.2 degrees, pulse 96, respirations 18, blood pressure 153/47.HEENT: Pupils are equal, round. Lungs: Are clear in all lung ramirez. Cardiovascular: Regular rhythm and rate without murmur or S3. Abdomen: Soft. Skin: Is warm and dry. O2 sats 95%. LAB: White count 27839, hematocrit 31, platelet count 364,000. White count has come down nicely. Chemistries: Sodium 140, potassium 3.4, chloride 97, bicarb 26, BUN 32, creatinine 5.6. Blood sugars 84, 72, 74, 88 and 75. Phosphorus was 4.8. ASSESSMENT AND PLAN: 1. A 66-year-old male with left-sided colitis clinically improved with antibiotics and nonoperative management. Continue to monitor. We will give him clear liquids and advance his diet as we can and clinically improving. Goal to avoid hypotension and he has low-flow etiology all to his mesenteric vessels so continue present broad-spectrum antibiotics and fluid and see if we can get him to improve some more. 2. End-stage renal disease. Continue dialysis as scheduled dialysis per Dr. Pugh. Electrolytes acid-base status look good. 3. Hypertension. Aware. 4. Note his C. difficile was negative. 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 Need to reassess, most likely need a descending colectomy or end-colostomy. Would like this to heal. cc: Brian Barahona MD
[2016-12-01] MEDS: HYTRIN PO SCH (22:08)
[2016-12-01] MEDS: ZOCOR PO SCH (22:08)
[2016-12-01] MEDS: LANTUS SUBQ SCH (22:11)
[2016-12-02] MEDS: FLAGYL 500 MG/NS 500 MG/100 ML IVPB IV SCH ×4 (01:33→20:44)
[2016-12-02] MEDS: NS 1,000 ML IV SCH (01:34)
[2016-12-02] MEDS: PHOSLO PO SCH ×3 (06:11→16:37)
[2016-12-02] MEDS: APRESOLINE PO SCH ×3 (06:12→20:45)
[2016-12-02] MEDS ORDERED: HEPARIN ONE (06:40)
[2016-12-02] MEDS ORDERED: NS 2,000 ML ONE (06:40)
[2016-12-02 06:49] LABS: MANUAL DIFF NEEDED? NO
[2016-12-02] MEDS: HUMULIN R SUBQ SCH ×4 (06:53→20:43)
[2016-12-02 07:01] LABS: BASO% 0.4 % (0.0-0.8); EOS# 0.23 X1000 (0.0-0.7); EOS% 2.2 % (0.0-10.0); HEMATOCRIT 27.8 % (42.0-52.0); HEMOGLOBIN 9.4 g/dL (14.0-18.0); IMM GRAN# 0.02 X1000 (0.0-0.04); IMM GRAN% 0.2 % (0.0-0.5); LYMPH# 1.17 X1000 (1.2-3.4); LYMPH% 11.1 % (20.5-51.1); MCH 31.8 PG (27-31); MCHC 33.8 g/dL (33-37); MCV 93.9 FL (81-99); MONO# 0.79 X1000 (0.11-0.59); MONO% 7.5 % (1.7-9.3); MPV 9.3 FL (7.4-10.4); NEUT% 78.6 % (42.2-75.2); PLT 386 X1000 (130-400); RBC 2.96 XMIL (4.7-6.1)
[2016-12-02] MEDS ORDERED: HEPARIN IV PRN (07:01)
[2016-12-02] MEDS ORDERED: TIGHT: 0.2 ML/HR MISC PRN (07:01)
[2016-12-02] MEDS ORDERED: NS 2,000 ML MISC PRN (07:01)
[2016-12-02] MEDS ORDERED: D50W 250 ML, AMINOSYN 15% 500 ML, LIPOSYN 20% 250 ML IV SCH ×3 (07:15)
[2016-12-02 07:18] LABS: ALBUMIN 3.1 g/dL (3.5-5.0); CALCIUM 9.5 mg/dL (8.8-10.2); POTASSIUM 3.1 mmol/L (3.5-5.1)
--- NOTE | 2016-12-02 11:17 | PROGRESS NOTE ---
DATE: 12/02/2016 SUBJECTIVE: He states his abdominal pain is improving day by day. Still modest. He has had only clear liquids. No shortness of breath or other complaints. OBJECTIVE: Vital signs: Blood pressure 188/55, heart rate 94, respirations 16, afebrile. General: He is in no distress. Skin: Warm and dry. Neck: Neck veins are not visible. HEENT: Conjunctivae are pink. Oropharynx is clear. Heart: Regular with an S4. No murmurs or gallops. Lungs: Have equal breath sounds. No crackles or wheezes. Abdomen: Mildly tender but soft. Bowel sounds are present. Extremities: Have no edema, clubbing, or cyanosis. LABORATORY DATA: Sodium 139, potassium 3.1, chloride 93, bicarbonate 23, BUN 42, creatinine 7.1. Hemoglobin 9.4. IMPRESSIONS: 1. End-stage kidney disease. He is having his routine hemodialysis treatment today. 2. Ischemic colitis. We will avoid hypotension during his treatment today. 3. Anemia. Continue erythropoietin. 4. Acid base and electrolytes. Acceptable. 5. Malnutrition. Add IDPN. cc: Horacio Pugh MD
--- NOTE | 2016-12-02 13:18 | PROGRESS NOTE ---
DATE: 12/02/2016 SUBJECTIVE: He feels well. He is in dialysis this morning. No abdominal pain. He is hungry. OBJECTIVE: No fevers. Temperature is 98 degrees, pulse 94, blood pressure 188/55, O2 saturation 94% on room air.General: He is alert, in no acute distress. He is in dialysis currently being dialyzed. Cardiovascular: Normal rate, regular rhythm. Abdomen: Soft, nontender, nondistended. No peritonitis. LABS: White count down to 10, hematocrit 27, creatinine is 7.1. ASSESSMENT/PLAN: 66-year-old male with apparent ischemic colitis of the left colon. He is doing well. It seems to have resolved. He is tolerating clear liquids. I think we can start giving him a full liquid diet now, go slowly with him. Continue his antibiotics and we will monitor his progress as he goes forward. Based on the CT angiogram this appears to be small vessel disease likely related to a transient episode of hypotension. He would be at risk for this in the future but will need to monitor for now. He does have severe diffuse atherosclerotic disease noted. We will continue to follow along. cc: Vandana Pizano MD
[2016-12-02] MEDS: VITAMIN C PO SCH (14:22)
[2016-12-02] MEDS: ICAR-C PO SCH ×2 (14:23→20:44)
[2016-12-02] MEDS: CENTRUM SILVER PO SCH (14:23)
[2016-12-02] MEDS: NORVASC PO SCH ×2 (14:23→20:44)
[2016-12-02] MEDS: VITAMIN B-12 PO SCH (14:23)
[2016-12-02] MEDS: VITAMIN D PO SCH (14:23)
[2016-12-02] MEDS: LEXAPRO PO SCH ×2 (14:23→20:44)
[2016-12-02] MEDS: FISH OIL CONCENTRATE PO SCH (14:23)
--- NOTE | 2016-12-02 14:48 | PROGRESS NOTE ---
DATE: 12/02/2016 SUBJECTIVE: Patient currently resting in bed. His abdominal pain has improved a lot. He had 1 bowel movement today. Denies any fevers, rigors, chills. He wants to eat solid food. I met him in the dialysis suite. He was just finishing his dialysis. PHYSICAL EXAMINATION: Vital Signs: Temperature of 98 degrees, pulse rate 94, respiratory rate 16, blood pressure 182/55, saturating 94% on room air. Body weight of 147 pounds 14 ounces. General: Moderately built, lying in bed, in no acute distress. HEENT: Mild pallor. No icterus. Neck: Soft, nontender, nondistended. Mild tenderness left upper quadrant. No rebound. Extremities: No cyanosis, clubbing. Neurologic: He is alert, awake, oriented. LABORATORY: His hemoglobin and hematocrit is 9.4 and 27.8, white count of 10.5 , platelet count of 386,000. Sodium 139, potassium 3.1. Chloride 93, bicarb 29, anion gap of 23, BUN of 42, creatinine 7.1, glucose of 103. Calcium 9.5, phosphorus 5.4, albumin of 3.1. Stool cultures: Stool for white cells, many. Stool for culture, negative. Ova : None seen. Stool for occult blood: Positive. C. difficile toxin is negative. C. difficile antigen is negative. Blood cultures negative x2. IMPRESSION AND PLAN: 1. Likely ischemic colitis of the left colon. We will keep him on a full liquid diet and will continue antibiotics and monitor his progress. If he continues to tolerate full liquid diet well, he will probably go home on gastrointestinal soft diet. 2. Constipation. Patient will continue MiraLAX once or twice daily. 3. Anemia, likely a combination of anemia of chronic disease. Positive Hemoccult from colitis. I will give him Iron C b.i.d. once a day. 4. Gastrointestinal prophylaxis. Proton pump inhibitors. 5. Endstage renal disease, on hemodialysis Wednesday, Wednesday, Wednesday. 6. 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 7. The above plan of care discussed with the patient and all questions answered. cc: MD Brian Mejia MD Nixon Gillespie, MD R. Tyler Harney, MD MTDD
--- NOTE | 2016-12-02 15:27 | PROGRESS NOTE ---
DATE: 12/01/2016 SUBJECTIVE: The patient is resting well these days. His abdominal pain is better. His is at bedside. He is chewing some ice. He is passing gas but not much. No fever or chills. Some nausea but no vomiting. OBJECTIVE: Vital Signs: Temperature 98 degrees, pulse 80, respirations 18, blood pressure 150/60, O2 saturation 93 on 2 L. General: Moderately built, moderately nourished, laying in bed. Eyes: Conjunctival pale, present. No icterus. Neck supple. Trachea in the midline. Abdomen: Tender in the left upper quadrant coming to the middle. Bowel sounds are present, slightly hypoactive. LABORATORY DATA: Hemoglobin and hematocrit are stable at 9 and 28. The white count is coming down. LFTs are normal. Albumin is 3. angiogram: Ischemic colitis. Small-vessel disease probably related to hypotension or extensive atherosclerosis. IMPRESSION AND PLAN: 1. Ischemic colitis left colon. We can start putting him on clear liquids. 2. Gastrointestinal prophylaxis. 3. Anemia. 4. Chronic renal disease. 5. Severe atherosclerosis. 6. Will do a follow-up colonoscopy in 6 weeks or so. 7. Constipation. We will give him some MiraLAX. I think the patient should get better on his own over the next few days. He is looking better. cc: Corbin Up MD
[2016-12-02] MEDS: ZOSYN 2.25 GM in NS 50 ML IV SCH ×3 (15:56→23:00)
[2016-12-02] MEDS: PROTONIX IV SCH ×2 (15:57→20:45)
[2016-12-02] MEDS: EPOGEN SUBQ SCH (15:57)
--- NOTE | 2016-12-02 17:03 | PROGRESS NOTE ---
DATE: 12/02/2016 SUBJECTIVE: Mr. Urrutia is feeling a little bit better. OBJECTIVE: Vital Signs: Temperature 97.6 degrees, pulse 92, respirations 19, blood pressure 154/54. Lungs: Clear in all lung ramirez. Cardiovascular exam: Regular rhythm and rate without murmur or S3. Abdomen: Soft, nontender, nondistended. Positive bowel sounds. No hepatosplenomegaly. Genitourinary: Urine output 1800 mL. LAB: White count 10,540, hematocrit is 27, platelet count is 386,000. Chemistry: Sodium 139, potassium 3.1, chloride 93, bicarb 23, BUN 42, creatinine 7.1, blood sugar is 103, 161, 245. ASSESSMENT AND PLAN: 1. Ischemic colitis left colon. We have him on clear liquids. Hopefully we can advance. 2. Gastrointestinal prophylaxis on IV proton pump inhibitor. 3. Anemia from #1. Continue to follow. 4. Chronic renal disease. 5. Severe atherosclerosis. 6. Followup colonoscopy in 6 weeks planned. 7. Constipation. He is on some MiraLAX. 8. Note he has end-stage renal disease, and his acid-base and electrolytes are unremarkable. Potassium is a little low. I think he is planned for dialysis today. cc: Brian Barahona MD
[2016-12-02] MEDS: MIRALAX PO SCH (20:43)
[2016-12-02] MEDS: HYTRIN PO SCH (20:44)
[2016-12-02] MEDS: SODIUM CHLORIDE 0.9% INJ SCH (20:45)
[2016-12-02] MEDS: ZOCOR PO SCH (20:45)
[2016-12-02] MEDS: LANTUS SUBQ SCH (20:46)
[2016-12-03] MEDS: FLAGYL 500 MG/NS 500 MG/100 ML IVPB IV SCH ×4 (03:37→21:24)
[2016-12-03] MEDS: APRESOLINE PO SCH ×3 (06:16→21:20)
[2016-12-03] MEDS: NS 1,000 ML IV SCH ×3 (06:18→17:13)
[2016-12-03] MEDS: HUMULIN R SUBQ SCH ×4 (06:21→21:22)
[2016-12-03] MEDS: ZOSYN 2.25 GM in NS 50 ML IV SCH ×3 (08:03→22:39)
[2016-12-03] MEDS: VITAMIN B-12 PO SCH (08:09)
[2016-12-03] MEDS: FISH OIL CONCENTRATE PO SCH (08:09)
[2016-12-03] MEDS: PHOSLO PO SCH ×3 (08:09→15:39)
[2016-12-03] MEDS: LEXAPRO PO SCH ×2 (08:09→21:20)
[2016-12-03] MEDS: VITAMIN C PO SCH (08:09)
[2016-12-03] MEDS: VITAMIN D PO SCH (08:09)
[2016-12-03] MEDS: CENTRUM SILVER PO SCH (08:09)
[2016-12-03] MEDS: NORVASC PO SCH ×2 (08:09→21:21)
[2016-12-03] MEDS: ICAR-C PO SCH ×2 (08:09→21:19)
[2016-12-03] MEDS: SODIUM CHLORIDE 0.9% INJ SCH ×2 (08:10→21:19)
[2016-12-03] MEDS: MIRALAX PO SCH ×2 (08:10→21:22)
[2016-12-03] MEDS: PROTONIX IV SCH ×2 (08:10→21:19)
--- NOTE | 2016-12-03 11:42 | PROGRESS NOTE ---
DATE: 12/03/2016 SUBJECTIVE: Mr. Urrutia is feeling better. He does feel stronger. Bowels still loose, but he did get some sleep last night. Diminished pain and discomfort. OBJECTIVE: Vital Signs: Temp 98.9 degrees, pulse 89, respirations 20, blood pressure 173/46. Eyes: Pupils are equal, round. Neck: Known distended neck veins. He had carotid, radial, femoral pulses 2+ and symmetrical. Abdomen: Soft, nontender. Positive bowel sounds. Extremities: Without clubbing, cyanosis, or edema. : Urinalysis is 700 mL. LAB: White count 10,540, hematocrit 27, platelet count 386,000. Blood sugar 159, 136 and 282. ASSESSMENT AND PLAN: 1. Ischemic colitis. Left colon appears to be clinically improving. Will probably advance some clear liquids. 2. Gastrointestinal prophylaxis in place with intravenous proton pump inhibitor. 3. Anemia secondary to some hematochezia from the colitis. 4. Chronic renal disease. 5. Severe atherosclerosis. Suspect this is small vessel disease and had episode of hypotension which caused the ischemic colitis. 6. Plan for follow up colonoscopy in about 6 weeks. Bowels are moving. Constipation resolved. 7. End-stage renal disease. Continue hemodialysis. His electrolytes and volume status look good. So, clinical improvement. Reviewed all his labs and I did not see any change. cc: Brian Barahona MD
--- NOTE | 2016-12-03 12:12 | PROGRESS NOTE ---
DATE: 12/03/2016 SUBJECTIVE: Patient currently resting in bed. His is at bedside. He denies any nausea, vomiting, vomiting blood. He is having soft brown bowel movements. He had dialysis yesterday. His diet is being advanced to a soft diet today as per patient's interaction with Dr. Pizano. Vitals: Temperature 98.9 degrees, pulse rate of 89, respiratory rate 20, pressure 172/46, saturating 100% room air. General: Moderately nourished lying in bed, in no distress. HEENT: No pallor. No icterus. Neck: Supple. Abdomen: Soft, nontender, nondistended. Bowel sounds are no guarding, rebound. Extremities: No cyanosis, clubbing, and edema. Neurologic: Alert, awake, oriented. LABS: Hemoglobin and hematocrit is 9.4 and 27.8, white count of 10.5, platelet count of 386,000. These labs are from yesterday. IMPRESSION AND PLAN: 1. Ischemic colitis of the left colon. We will advance diet to gastrointestinal soft diet today if okay with the surgical team and patient will need a colonoscopy in 6 weeks after discharge. He will continue antibiotics for a total of 7-10 days. He will continue on Culturelle 1 capsule p.o. b.i.d. for 6 weeks. 2. Constipation. Will continue the patient on MiraLAX 17 g twice daily and he will hold off for more than 3 bowel movements in 24 hours. 3. The patient has anemia. We will continue him on Iron C b.i.d. and multivitamin once a day. 4. GI prophylaxis. PPIs. 5. Severe atherosclerosis. Continued to be followed by primary care team. 6. Chronic renal disease on hemodialysis Wednesday, Wednesday, Wednesday. Care of Dr. sanz. 7. We will follow the patient in clinic in 4-6 weeks of discharge. The above plan discussed with the patient and family at bedside. cc: MD Brian Mejia MD Reginald D. Gladish, MD
--- NOTE | 2016-12-03 15:27 | PROGRESS NOTE ---
DATE: 12/03/2016 SUBJECTIVE: Feels well. No pain. He is having bowel function. No bleeding. OBJECTIVE: Vital Signs: Temperature is 98.9 degrees, pulse 89, blood pressure 173/46, oxygen saturations 99% on room air. General: He is alert, in no acute distress. Cardiovascular: Normal rate, regular rhythm. Abdomen: Soft, nontender, nondistended. No peritonitis. DIAGNOSTIC DATA: White count was normal yesterday. Glucose remains elevated to 282. ASSESSMENT/PLAN: A 66-year-old male with multiple medical issues, with apparent ischemic colitis of left colon. This has resolved and he is doing well now with bowel function and if it is normal would it be okay to advance his diet. Would not be unreasonable in the next 24-48 hours to transition him to oral antibiotics, and will defer further disposition to the Medicine Service. We can follow him as an outpatient. If he were to develop symptoms of a stricture this would be something to look out for. I have discussed with patient and his family at length and they understand. cc: Vandana Pizano MD
--- NOTE | 2016-12-03 16:55 | PROGRESS NOTE ---
DATE: 12/03/2016 SUBJECTIVE: Patient is resting in bed. He has had his diet advanced. He feels like he is improving. OBJECTIVE: Vital signs: Temperature 98.9 degrees, pulse 89, respiratory rate 20, blood pressure 173/46. Intake 1.9 L. Output 2.9 L. General: This is a middle-aged gentleman, resting in bed. He is awake, alert, no acute distress. HEENT: Normocephalic, atraumatic. Oral mucosa moist. Neck: Supple. No JVD. Cardiovascular: Regular rate and rhythm. No murmur or gallop. Pulmonary: Equal excursion. He is clear bilaterally. Abdomen: Soft. Positive bowel sounds. : Not inspected. He voids. Extremities: No clubbing, cyanosis, or edema. Integumentary: Skin is warm and dry without rash or lesion. LABORATORY DATA: No labs today. ASSESSMENT AND PLAN: 1. Ischemic colitis. Followed by primary and surgery. Reported as improvement. His diet has been advanced. 2. End-stage renal disease management. Dialysis is Wednesday, Wednesday, Wednesday. We will plan to dialyze him early in the morning. We will check labs in the morning to adjust his dialysate bath. He can be discharged from a renal perspective after that. 3. Electrolytes, acid-base balance, anemia. Again, we will check labs in the morning. 4. Fluid volume. He is in negative territory. Dictated by LUL Gracia for Horacio Pugh MD Patient seen, data reviewed, discussed with Hesham Newell on 12/03/16. I agree with the above assessment and plan of care. cc: Horacio Pugh MD [facility]
[2016-12-03] MEDS ORDERED: INSULIN PEN NEEDLES ONE (21:12)
[2016-12-03] MEDS: CULTURELLE PO SCH (21:20)
[2016-12-03] MEDS: ZOCOR PO SCH (21:20)
[2016-12-03] MEDS: HYTRIN PO SCH (21:21)
[2016-12-03] MEDS: LANTUS SUBQ SCH (21:44)
[2016-12-04] MEDS: FLAGYL 500 MG/NS 500 MG/100 ML IVPB IV SCH ×4 (03:46→15:17)
[2016-12-04] MEDS: HUMULIN R SUBQ SCH (06:09)
[2016-12-04 06:14] LABS: HEMATOCRIT 30.1 % (42.0-52.0); HEMOGLOBIN 10.1 g/dL (14.0-18.0); MCH 32.2 PG (27-31); MCHC 33.6 g/dL (33-37); MCV 95.9 FL (81-99); MPV 9.1 FL (7.4-10.4); RBC 3.14 XMIL (4.7-6.1)
[2016-12-04] MEDS: PHOSLO PO SCH ×2 (06:15→15:18)
[2016-12-04] MEDS: APRESOLINE PO SCH ×2 (06:15→15:00)
[2016-12-04 06:41] LABS: ALBUMIN 3.2 g/dL (3.5-5.0); CALCIUM 9.4 mg/dL (8.8-10.2); POTASSIUM 3.3 mmol/L (3.5-5.1)
[2016-12-04] MEDS ORDERED: NS 2,000 ML MISC PRN (07:14)
[2016-12-04] MEDS ORDERED: TIGHT: 0.2 ML/HR MISC PRN (07:14)
[2016-12-04] MEDS ORDERED: HEPARIN IV PRN (07:14)
[2016-12-04] MEDS ORDERED: HEPARIN ONE (08:15)
[2016-12-04] MEDS ORDERED: NS 2,000 ML ONE (08:15)
[2016-12-04] MEDS: ZOSYN 2.25 GM in NS 50 ML IV SCH ×2 (08:34→14:56)
[2016-12-04 09:11] VITALS: BP 187/55
--- NOTE | 2016-12-04 12:44 | PROGRESS NOTE ---
DATE: 12/04/2016 SUBJECTIVE: He is anticipating discharge today. No abdominal pain, nausea or vomiting. No diarrhea. OBJECTIVE: Vital Signs: Blood pressure 87/57, heart rate 84, respirations 19, afebrile. General: He is in no acute distress. Skin: Warm and dry. HEENT: Conjunctivae are pink. Neck: Neck veins are not appreciated. Heart: Regular with a gallop. Lungs: Have equal breath sounds. No crackles. Abdomen: Soft, nontender. Bowel sounds present. Extremities: Have no edema, clubbing, or cyanosis. LABORATORY DATA: Sodium 136, potassium 3.3, chloride 95, bicarbonate 24, BUN 18, creatinine 5.9, hemoglobin 10.1. IMPRESSION: 1. Ischemic colitis. Symptoms are improving. He anticipates discharge. 2. End-stage renal disease. He will have his routine dialysis today. A 3-potassium bath. 3. Anemia: Hemoglobin is within target. Continue erythropoietin. cc: Horacio Pugh MD
--- NOTE | 2016-12-04 13:55 | PROGRESS NOTE ---
DATE: 12/04/2016 SUBJECTIVE: Feels well. No pain. He is tolerating diet and having bowel function. No bleeding. OBJECTIVE: No fevers. No tachycardia. Blood pressures been elevated but stable for him, 170s to 180s. LABS: White count remains normal at 9, hematocrit 30, creatinine is 5.9. ASSESSMENT/PLAN: 66-year-old male with likely ischemic colitis of the left colon. He is doing well. Seems to be resolved. He is now tolerating a regular diet and it would be reasonable to transition to oral antibiotics and discharge home when clear from the Medicine Service. He can follow up with me in my office in the next 1-2 weeks around the time he is completing his antibiotics to ensure he did not have any other problems going forward. Will continue to follow while inpatient. cc: Vandana Pizano MD
[2016-12-04] MEDS: CULTURELLE PO SCH ×2 (14:00→14:55)
[2016-12-04] MEDS: PROTONIX IV SCH (14:18)
[2016-12-04] MEDS: LEXAPRO PO SCH (14:30)
[2016-12-04] MEDS: FISH OIL CONCENTRATE PO SCH ×2 (14:35→14:54)
[2016-12-04] MEDS: CENTRUM SILVER PO SCH ×2 (14:43→14:55)
[2016-12-04] MEDS: VITAMIN B-12 PO SCH (14:55)
[2016-12-04] MEDS: VITAMIN C PO SCH (14:55)
[2016-12-04] MEDS: VITAMIN D PO SCH (14:55)
[2016-12-04] MEDS: ICAR-C PO SCH (14:56)
[2016-12-04] MEDS: NORVASC PO SCH (14:56)
[2016-12-04] MEDS: MIRALAX PO SCH (15:20)
[2016-12-04] MEDS: EPOGEN SUBQ SCH (15:25)
--- NOTE | 2016-12-04 15:44 | DISCHARGE SUMMARY ---
ADMISSION DATE: 11/29/2016 DISCHARGE DATE: 12/04/2016 HOSPITAL COURSE: This 66-year-old with history end-stage renal disease on hemodialysis Wednesday, Wednesday, and Wednesday, history diabetes mellitus type 2, hypertension presented with nausea, vomiting, diarrhea that began on Wednesday. states he has been having uncontrolled diarrhea multiple times a day, he has been not eating well been having episodes of vomiting, he had bright red blood in the toilet prompted bring him to the emergency room. Complained of some mild epigastric discomfort but no overt pain. He does report he had some discomfort when he is having bowel movements. Admitted to our facility 3 months ago with encephalopathy, nausea and vomiting, seen by Dr. Millan, endoscopy performed showed gastritis but nothing acute. In the emergency room he had labs and diagnostics done, x-ray of abdomen showed severe constipation, white count was 22,000. PAST MEDICAL HISTORY: 1. Endstage renal disease on hemodialysis. 2. Diabetes mellitus type 2. 3. Hypertension. 4. Gastroesophageal reflux disease. 5. Hyperlipidemia. 6. History of DVT. 7. Peripheral arterial disease. 8. Chronic anemia. 9. Osteoarthritis. 10. Depression. SURGICAL HISTORY: He has had a left AV fistula, right hip fracture and repair with right hip replacement so admitted. Ischemic colitis suspected, CT of the thorax, abdomen pelvis, he had colitis of the splenic flexure, descending colon. I suspect this is small-vessel disease with some hypotension, he showed steady improvement. He did have some leukocytosis when he came in. Blood pressures were watched and controlled, he continued his dialysis, he had a little bit encephalopathy when he presented which improved followed by Dr. Bone, consultation done on 11/29 felt abdominal pain, diarrhea, hematochezia, CT scan suggested mesenteric ischemia, constipation, Dr. Pugh followed as well with end-stage renal disease and continued his dialysis, volume status, electrolytes look good. He had a mesenteric arteriogram on 11/30/2016, ischemic colitis left colon probable due to small- vessel disease. General surgery was consulted Khalif Martinez and patient showed steady clinical improvement, able to advance his diet. Dr. Pizano felt he has multiple medical issues and his exam was benign. White blood cell count a little elevated and felt concern for ischemic colitis was justified but the exam was less concerning for this and I did not see any toxic colitis and continue treat him conservatively bowel rest and bowel care, C. difficile and stool studies were negative and not sure about his last colonoscopy. He had an EGD recently per Dr. Millan without ulcers so felt he had small vessel mesenteric colitis, ischemic colitis and he showed steady improvement, felt he could go home on 12/04/2016. He is now tolerating regular diet and reasonable to transition to oral antibiotics and he will follow up with Dr. Mccollum and follow up Dr. Cuadra couple weeks. DISCHARGE MEDICATIONS: Let him go home on Norvasc 5 mg b.i.d., vitamin C 500 mg a day, PhosLo 1334 mg p.o. q.a.c., vitamin D 1000 units daily, vitamin B12 1000 mcg daily, Epogen he is getting during dialysis 10,000 units, Lexapro 20 mg b.i.d., Apresoline 50 mg q.8 hours, Lantus 22 units subcu at bedtime, Icar-C 1 b.i.d., labetalol was given p.r.n. so will stop that, Culturelle 1 b.i.d., Flagyl 500 mg will give that p.o. 4 times a day for another 7 days and omega 3, omega 6, Millis 9 fatty acids or fish oil concentrate 1000 mg a day, Protonix we will stop he was getting that IV, will give him Protonix p.o. I guess once a day, MiraLAX 17 g b.i.d., Zocor 40 mg at bedtime, Hytrin 10 mg p.o. at bedtime. FOLLOWUP: With his physicians in 2 weeks. cc: Brian Barahona MD
[2016-12-04] MEDS: NS 1,000 ML IV SCH (15:52)
== END 2016-12-04 16:50 | disposition home or self-care (01) ==
LOC: ED 10:54 → SUATTDRO 15:40 → 3N 15:40
PROVIDERS: ATTEND Emergency Medicine

== ENCOUNTER 2018-06-12 18:59 | Inpatient (IN) ==
[2018-06-12] MEDS ORDERED: ASPIRIN PO ONE (19:17)
[2018-06-12 20:05] LABS: BASO# 0.06 X1000 (0.0-0.2); BASO% 0.8 % (0.0-0.8); EOS# 0.31 X1000 (0.0-0.7); HEMATOCRIT 34.6 % (42.0-52.0); HEMOGLOBIN 11.1 g/dL (14.0-18.0); LYMPH# 1.62 X1000 (1.2-3.4); LYMPH% 20.8 % (20.5-51.1); MCH 31.6 PG (27-31); MCHC 32.1 g/dL (33-37); MCV 98.6 FL (81-99); MONO# 0.49 X1000 (0.11-0.59); MONO% 6.3 % (1.7-9.3); MPV 9.5 FL (7.4-10.4); NEUT# 5.29 X1000 (1.4-6.5); NEUT% 68.1 % (42.2-75.2); PLT 335 X1000 (130-400); RBC 3.51 XMIL (4.7-6.1); RDW 13.6 % (11.5-14.5); WBC 7.77 X1000 (4.8-10.8)
--- NOTE | 2018-06-12 20:08 | Diag Imaging Result Doc PS360 ---
EXAM: CHEST-2 VIEWS 06/12/2018 HISTORY: chest pain TECHNIQUE: PA and lateral chest COMMENT: There is a left pleural effusion. There is some atelectasis in the left base. Neither of these findings were present on 10/26/2017. The heart size is smaller than it was at the time the previous study and there has been interval sternotomy. IMPRESSION: Left pleural effusion and basilar atelectasis. Electronically signed by Mushtaq Vigil 06/12/2018 8:06 PM
[2018-06-12 20:12] LABS: INR 0.97; PROTIME 13.7 Seconds (11.0-16.0)
[2018-06-12 20:13] LABS: PTT 33.5 Seconds (22.3-41.8)
[2018-06-12 20:24] LABS: ALB/GLOB RATIO 1.4; ALBUMIN 4.6 g/dL (3.5-5.0); CALCIUM 9.9 mg/dL (8.8-10.2); POTASSIUM 3.5 mmol/L (3.5-5.1); TOTAL BILIRUBIN 0.48 mg/dL (0.20-1.00)
[2018-06-12] MEDS ORDERED: APRESOLINE IV ONE (22:00)
--- NOTE | 2018-06-12 22:35 | PROVIDER DOCUMENTATION ---
This chart was entered by Rebekah Mg Scribe, acting as scribe for Bob Bolden MD. HPI-Respiratory General - General Chief Complaint: Chest Pain Stated Complaint: SOB Time Seen by Provider: 06/12/18 21:36 Source: patient, family Allergies/Adverse Reactions: Patient Allergies Allergy/AdvReac Type Severity Reaction Status Date / Time No Known Allergies Allergy Verified 08/27/17 21:33 Home Medications: Home Medication List Medication Instructions Recorded Confirmed Last Taken Type Terazosin [Hytrin] 5 mg PO HS 06/14/14 03/08/18 10/24/17 History Calcium Acetate 1,334 mg PO AC 06/01/16 03/08/18 10/24/17 History Escitalopram [Lexapro] 20 mg PO DAILY 06/01/16 03/08/18 10/24/17 History ATORVAstatin [Lipitor] 40 mg PO QHS 07/21/17 03/08/18 10/24/17 History Hydralazine [Apresoline] 50 mg PO TID 07/21/17 03/08/18 10/24/17 History Insulin Detemir [Levemir Flextouch] 10 unit SQ HS 07/21/17 03/08/18 10/24/17 History Pantoprazole Sodium [Protonix] 40 mg PO DAILY 07/21/17 03/08/18 10/24/17 History Ferrous Sulfate 325 mg PO DAILY tablet 08/20/17 03/08/18 10/24/17 Rx Losartan [Cozaar] 50 mg PO DAILY #60 tab 09/08/17 03/08/18 10/24/17 Rx Docusate Sodium 100 mg PO DAILY 10/25/17 03/08/18 Unknown History Levothyroxine Sodium 75 mcg PO HS 10/25/17 03/08/18 10/24/17 09:00 History Polyethylene Glycol 3350 [Miralax] 17 gm PO DAILY PRN 10/25/17 03/08/18 Unknown History Amlodipine [Norvasc] 5 mg PO DAILY 03/08/18 03/08/18 Unknown History Aspirin EC 81 mg PO DAILY 03/08/18 03/08/18 Unknown History Clopidogrel Bisulfate [Plavix] 75 mg PO DAILY 03/08/18 03/08/18 Unknown History Metoprolol Tartrate 50 mg PO BID 03/08/18 03/08/18 Unknown History - History of Present Illness-Resp Nature of Presenting Problem: 68 yom presents to er w/ w/co sob, pressure when breathing in chest, but no pain between breaths starting today. pt has hx of renal failure, chf, dm, pqd, and 2x mi. pt has been going to dialysis 4 years and goes wednesday, wed, and wed. pt went to dialysis wednesday. pt had 3xbypass at [facility]. pt is a former smoker. Review of Systems - Adult - REVIEW OF SYSTEMS - ADULT Constitutional: reports: no symptoms reported Eyes: reports: no symptoms reported Ears, Nose, Mouth & Throat: reports: no symptoms reported Cardiovascular: reports: no symptoms reported Respiratory: reports: see HPI, shortness of breath. denies: cough, hemoptysis, wheezing Gastrointestinal: reports: no symptoms reported Genitourinary: reports: no symptoms reported Musculoskeletal: reports: no symptoms reported Integumentary: reports: no symptoms reported Neurological: reports: no symptoms reported Psychiatric: reports: no symptoms reported Endocrine: reports: no symptoms reported Hematologic/Lymphatic: reports: no symptoms reported Allergic/Immunologic: reports: no symptoms reported All Other Systems: Reviewed and Negative Past History - Adult - PAST MEDICAL HISTORY-ADULT Review of Records: reports: Old Records Reviewed, Nursing Assessment Review, Medications Reviewed, Social history reviewed & non-contributory. Major Childhood Illnesses: reports: denies history Cardiovascular: reports: CHF, HTN, [place] (x2), PVD Respiratory: reports: COPD Gastrointestinal: reports: other (ISCHEMIC BOWEL; severe constipation) Obstetrical/Gynecological: reports: denies history Genitourinary: reports: dialysis (MWF), kidney disease Musculoskeletal: reports: denies history Neurological: reports: denies history Endocrine/Immune: reports: Diabetes Other Conditions: reports: denies history - PRIOR SURGERIES/PROCEDURES Surgical/Procedure History: reports: CABG, joint replacement - IMMUNIZATION STATUS Childhood Immunizations: See Nurse Assessment Flu Vaccine: See Nurse Assessment - FAMILY HISTORY Family History: reviewed, not pertinent - SOCIAL HISTORY Smoking: other (former) Substance Use: none/never Physical Exam-General - PHYSICAL EXAM-ADULT Initial Vital Signs Reviewed: Yes - CONSTITUTIONAL General Appearance: alert, no apparent distress - EYES Eyes: PERRL/EOMI, pink conjunctivae - HEAD, EARS, NOSE, MOUTH & THROAT HENMT: normocephalic/atraumatic, moist mucous membranes, normal ENT inspection - NECK Neck: supple, normal inspection - RESPIRATORY Respiratory: chest non-tender, normal breath sounds, respiratory distress (pressure when breathing), rales. negative: crackles, stridor, wheezing, pleural rub - CARDIOVASCULAR Cardiovascular: normal peripheral pulses, regular rate, rhythm, no gallop, no JVD, no murmur, diastolic murmur, other (edema). negative: no edema - GASTROINTESTINAL (ABDOMEN) Abdominal Exam: normal bowel sounds, non tender, soft. negative: rigid, rebound, tenderness - LYMPHATIC Lymphatic: no adenopathy - MUSCULOSKELETAL Back Exam: normal inspection, no CVA tenderness, no vertebral tenderness Extremity: normal range of motion, non-tender - SKIN Integumentary: normal color, normal turgor, warm/dry - NEUROLOGIC Neurologic: equity director II-XII nml as tested, grossly normal, no motor/sensory deficits - PSYCHIATRIC Psych/Mental Status: normal mood/affect, normal thought content, normal thought process, oriented x 3 Progress - PLAN OF CARE/RESULTS Progress/Plan/Lab Results: Vital Signs - 8 hr 06/12/18 19:15 Temperature 97.6 F Pulse Rate 60 Respiratory Rate 15 Blood Pressure 198/65 O2 Sat by Pulse Oximetry 94 L Laboratory Results - last 24 hr 06/12/18 06/12/18 06/12/18 19:50 19:50 19:50 WBC 7.77 RBC 3.51 L Hgb 11.1 L Hct 34.6 L MCV 98.6 MCH 31.6 H MCHC 32.1 L RDW Std Deviation 13.6 Plt Count 335 MPV 9.5 Immature Gran % (Auto) 0.0 Neut % (Auto) 68.1 Lymph % (Auto) 20.8 [place] % (Auto) 6.3 Eos % (Auto) 4.0 Baso % (Auto) 0.8 Immature Gran # (Auto) 0.00 Neut # (Auto) 5.29 Lymph # (Auto) 1.62 [place] # (Auto) 0.49 Eos # (Auto) 0.31 Baso # (Auto) 0.06 PT INR PTT (Actin FS) Sodium 139 Potassium 3.5 Chloride 95 L Carbon Dioxide 25 Anion Gap 19 BUN 35 H Creatinine 7.0 H Estimated GFR/1.73 m2 8 BUN/Creatinine Ratio 5 Glucose 131 H Calculated Osmolality 287 Calcium 9.9 Total Bilirubin 0.48 AST 15 ALT 7 L Alkaline Phosphatase 108 Creatine Kinase 82 Troponin T Psn-J-Hfqudbgkdxl Pept > 45424 H Total Protein 8.0 Albumin 4.6 Globulin 3.4 Albumin/Globulin Ratio 1.4 06/12/18 06/12/18 19:50 19:50 WBC RBC Hgb Hct MCV MCH MCHC RDW Std Deviation Plt Count MPV Immature Gran % (Auto) Neut % (Auto) Lymph % (Auto) [place] % (Auto) Eos % (Auto) Baso % (Auto) Immature Gran # (Auto) Neut # (Auto) Lymph # (Auto) [place] # (Auto) Eos # (Auto) Baso # (Auto) PT 13.7 INR 0.97 PTT (Actin FS) 33.5 Sodium Potassium Chloride Carbon Dioxide Anion Gap BUN Creatinine Estimated GFR/1.73 m2 BUN/Creatinine Ratio Glucose Calculated Osmolality Calcium Total Bilirubin AST ALT Alkaline Phosphatase Creatine Kinase Troponin T 0.144 H Qmg-H-Qquymskoniv Pept Total Protein Albumin Globulin Albumin/Globulin Ratio Orders Category Date Time Status Cardiac Monitoring DIRECTED Care 06/12/18 19:17 Active Oxygen Therapy- ED Nursing DIRECTED Care 06/12/18 19:17 Active Saline Loc NOW Care 06/12/18 19:17 Active CHEST-2 VIEWS [RAD] Stat Exams 06/12/18 19:17 Completed CBC WITH ELECTRONIC DIFF [HEME] Stat Lab 06/12/18 19:50 Completed CK PROFILE [SP CHEM] Stat Lab 06/12/18 19:50 Completed COMPREHENSIVE METABOLIC PANEL [CHEM] Stat Lab 06/12/18 19:50 Completed PRO B-NATRIURETIC PEPTIDE Stat Lab 06/12/18 19:50 Completed PROTIME WITH INR [COAG] Stat Lab 06/12/18 19:50 Completed PTT [COAG] Stat Lab 06/12/18 19:50 Completed TROPONIN T Stat Lab 06/12/18 19:50 Completed Aspirin Med 06/12/18 19:17 Discontinued 325 mg PO NOW ONE Hydralazine [Apresoline] Med 06/12/18 22:00 Discontinued 10 mg IV NOW ONE CP/SOB/Palp >45 yrs of Age Stat Oth 06/12/18 19:17 Ordered EKG [EKG] Stat Ther 06/12/18 19:17 Ordered Result Diagrams: 06/12/18 19:50 06/12/18 19:50 - EKG 1 Time of EKG reading by physician:: 22:00 EKG Read and Signed by:: Bob Bolden EKG Interpretation (*Must complete 3 of following elements*): Abnormal Rate: 60 (Possible left atrial enlargement ) Rhythm: NSR AK Interval: normal ST Wave: non-specific ST changes - XRAY 1 XRAY: Bilateral XRAY Study: Chest Impression: Abnormal ( TECHNIQUE: PA and lateral chest COMMENT: There is a left pleural effusion. There is some atelectasis in the left base. Neither of these findings were present on 10/26/2017. The heart size is smaller than it was at the time the previous study and there has been interval sternotomy. IMPRESSION: Left pleural effusion and basilar atelectasis. Electronically signed by Mushtaq Vigil 06/12/2018 8:06 PM) - CONSULTS/PCP/HOSPITALIST Notification #1 *Consult/PCP/Hospitalist*: Dr Ochoa Time Discussed: 22:35 Consult Disposition: Admit Departure - Departure Date of Disposition Decision: 06/12/18 Time of Disposition Decision: 22:33 DIAGNOSIS: ESRD (end stage renal disease) on dialysis, Shortness of breath, Pleural effusion Disposition: ADMITTED INPATIENT 09 Certified Medical Emergency: Emergent Condition: Fair Referrals and Follow-Ups: Oral Mccollum MD [Primary Care Provider] - - Critical Care Note This patient required my direct & personal management of CC.: No Attestation - Physician/ SONYA Attestation Patient care was provided by Advanced Practice Provider:: No The physician spent face to face time with patient:: Yes Advanced Practice Provider documentation review:: Supervising physician onsite and consulted in the evaluation and care of this patient. The physician did have a face to face encounter with the patient. This chart was documented by the indicated scribe, (Rebekah Mg Scribe) and accurately reflects the services I performed and decisions made by me, Bob Bolden MD, as attested by the provider's signature.
[2018-06-13] MEDS ORDERED: ZOFRAN IV PRN (01:46)
[2018-06-13] MEDS ORDERED: TYLENOL PO PRN (01:46)
[2018-06-13] MEDS ORDERED: NITROGLYCERIN LINGUAL SPRAY SL PRN (01:46)
[2018-06-13] MEDS ORDERED: NITROGLYCERIN SL PRN (02:00)
[2018-06-13] MEDS: HEPARIN SUBQ SCH ×2 (03:22→13:32)
--- NOTE | 2018-06-13 04:35 | HISTORY AND PHYSICAL ---
PRIMARY CARE PHYSICIANS: Dr. Oral Mccollum. PRIMARY METAL FABRICATING INSPECTOR: Dr. Salvador Lind. CHIEF COMPLAINT: Shortness of breath. HISTORY OF PRESENT ILLNESS: This is a 68-year-old male with past medical history of coronary artery disease with recent CABG done few months ago who presented to the emergency department complaining of shortness of breath. He has end-stage renal disease on dialysis, and has routine dialysis on Wednesday, Wednesday and Fridays. He went to have dialysis on Wednesday and before and after dialysis he was breathing okay. Wednesday morning he started complaining of shortness of breath and also chest pressure in the suprasternal area today that was almost present all the time. He denies any aggravating or alleviating factors. He denies any cough or fever. He denies any sick contacts. For that problem he decided to present to the emergency department. On evaluation in the ER the chest x-ray showed left pleural effusion along with bibasilar atelectasis. The ER doctor thinks that this patient is volume overloaded and needs to receive dialysis. Considering also that this patient is complaining of chest pressure that according to him he never had that even when he had a heart attack. He is going to be admitted for further evaluation and treatment. PAST MEDICAL HISTORY: 1. Coronary artery disease with the recent surgery. 2. Diabetes mellitus type 2. 3. Hypertension. 4. Hyperlipidemia. 5. End-stage renal disease on dialysis. He has been on dialysis for the last 4 years. His primary gum machine filler is Dr. Pugh. PAST SURGICAL HISTORY: 1. In August of 2017 he had a had a right femur to posterior tibial bypass performed by Dr. Bob Zhang. 2. On 11/03/2017, at [facility] he had a CABG with triple bypass. Currently he is on cardiac rehabilitation. His primary tonger is Dr. Salvador Lind, and he had an echo recently done 3 days ago. 3. Right hip replacement. SOCIAL HISTORY: 1. He quit smoking 20 years ago. He denies using any alcohol or using illicit drugs. FAMILY HISTORY: Coronary artery disease running in his family in mother and brothers. REVIEW OF SYSTEMS: Eleven systems were reviewed and all symptoms are related to H and P. He denies any night sweating, any coughing or weight loss. ALLERGIES: He has known no known drug allergies. PHYSICAL EXAMINATION: VITAL SIGNS: Temperature 97.6 degrees, heart rate 60, respiratory rate 15, blood pressure 198/65, O2 saturation 94% on room air. GENERAL: This is a chronically ill-looking 68-year-old male lying in bed in no acute distress. HEENT: Head is normocephalic, atraumatic. Mucous membranes are moist. Pupils are equal, round, and reactive to light and accommodation. Anicteric sclerae. [place] conjunctivae. NECK: No JVD noted. No carotid bruits. No lymphadenopathy. No thyromegaly. CARDIOVASCULAR: S1, S2 heard. No murmurs, gallops, or rubs. Regular rate and rhythm. RESPIRATORY: Minimal crackles in both pulmonary bases and decreased breath sounds in the left base. The patient is not using any accessory muscles or having work of breathing. ABDOMEN: Soft, nontender to palpation. Bowel sounds present. No organomegaly. EXTREMITIES: No clubbing or cyanosis. Peripheral pulses present in both legs. There is a left lower extremity scar from vascular surgery. NEUROLOGICAL: The patient is alert and oriented x3. Moves all 4 extremities. LABORATORY DATA: White cell count 7.77, hemoglobin 11.1, hematocrit 34.6, platelets 335,000, INR 0.97. Sodium 139, potassium 3.5, chloride 95, respiratory rate 32, bicarbonate 25, BUN 35, creatinine 7.0, glucose 131, proBNP greater than 35,000. Troponin first set is 0.144. ASSESSMENT AND PLAN: 1. Chest pain/chest discomfort. The patient came to the emergency department complaining of this problem. Considering that he has history of coronary artery disease with recent coronary artery bypass graft, and also the finding on the x-ray of left pleural effusion. I prefer to admit this patient to the hospital for further evaluation and treatment. We are going to do a CT of the thorax without contrast for better visualization of the lung anatomy. As we mentioned before the x-ray instead of showing flash pulmonary edema it is showing left pleural effusion. At this point we are going to trend troponins. Recent echocardiogram has been done 3 days ago. Considering all his heavy cardiac history we will consult Cardiology. 2. End-stage renal disease on dialysis. He looks volume overloaded, so he is going to be dialyzed tomorrow here in the hospital. I will consult Dr. Pugh for further management. 3. Normocytic anemia. We will continue to monitor. 4. Peripheral vascular disease status post right femoral to posterior tibial bypass. At this point the condition is stable. No complaining of any pain. 5. Hypertension. We are going to reconsider blood pressure medication because at arrival to the emergency room he had an elevated blood pressure. 6. Diabetes mellitus type 2. We will do hemoglobin A1c. We will check Accu- Cheks before meals and also at bedtime. 7. Hyperlipidemia. We will continue with the statin. 8. Disposition. Depending upon clinical situation of the patient. cc: MD Mehdi Osorio MD MTDD
[2018-06-13] MEDS: PHOSLO PO SCH ×3 (06:15→16:27)
[2018-06-13] MEDS: PRILOSEC PO SCH (06:15)
[2018-06-13] MEDS ORDERED: TIGHT: 0.2 ML/HR FOR DIALYSIS MISC PRN (06:36)
[2018-06-13] MEDS ORDERED: NS 2,000 ML MISC PRN (06:36)
[2018-06-13] MEDS ORDERED: HEPARIN IV PRN (06:36)
--- NOTE | 2018-06-13 07:06 | EKG Report ---
Test Performed on : 06/12/2018 7:09:43 PM Test Reason : chest pain Blood Pressure : / mmHG Vent. Rate : 060 BPM Atrial Rate : 060 BPM P-R Int : 158 ms QRS Dur : 088 ms QT Int : 478 ms P-R-T Axes : 061 017 029 degrees QTc Int : 478 ms Normal sinus rhythm. Possible Left atrial enlargement Nonspecific ST and T wave abnormality Abnormal ECG When compared with ECG of 26-OCT-2017 11:04, Criteria for Anteroseptal infarct are no longer present QT has lengthened Unconfirmed Result
--- NOTE | 2018-06-13 07:29 | Diag Imaging Result Doc PS360 ---
EXAM: CT THORAX W/O CONTRAST 06/12/2018 HISTORY: sob, chest pain, suspected pna TECHNIQUE: This exam was performed using automated exposure control, adjustment of mA or kV according to patient size, and/or use of iterative reconstruction technique. COMMENT: The current examination is compared with 09/04/2017. There is increased interstitial markings and emphysematous change both of which were present at the time the previous study. There is some compressive atelectasis in the lung bases. There is a calcified granuloma in the right upper lobe. Compared to the previous examination the pleural effusions which were present previously are much smaller. There is considerable coronary calcification. There has been previous sternotomy. The aorta is calcified as is the brachiocephalic and left carotid arteries. There are some melissa calcifications in the mediastinum and right hilum. There is a large amount of stool in the visualized portion of the colon. There has apparently been cholecystectomy since the previous study. There are spondylotic changes throughout the thoracic spine. There is bilateral gynecomastia worse on the right than the left. IMPRESSION: Bilateral pleural effusions, pulmonary edema, and atelectasis. The possibility of pneumonia cannot be entirely excluded. Atherosclerosis. Constipation. COPD. Electronically signed by Mushtaq Vigil 06/13/2018 7:26 AM
[2018-06-13 08:15] LABS: BASO# 0.08 X1000 (0.0-0.2); BASO% 1.2 % (0.0-0.8); EOS# 0.36 X1000 (0.0-0.7); EOS% 5.3 % (0.0-10.0); HEMATOCRIT 27.6 % (42.0-52.0); HEMOGLOBIN 8.9 g/dL (14.0-18.0); LYMPH# 1.34 X1000 (1.2-3.4); LYMPH% 19.7 % (20.5-51.1); MCH 32.1 PG (27-31); MCHC 32.2 g/dL (33-37); MCV 99.6 FL (81-99); MONO# 0.41 X1000 (0.11-0.59); MPV 9.8 FL (7.4-10.4); NEUT% 67.8 % (42.2-75.2); PLT 279 X1000 (130-400); RBC 2.77 XMIL (4.7-6.1); RDW 13.6 % (11.5-14.5); WBC 6.79 X1000 (4.8-10.8)
[2018-06-13] MEDS: LOPRESSOR PO SCH ×2 (08:21→22:26)
[2018-06-13] MEDS: ASPIRIN EC PO SCH (08:21)
[2018-06-13] MEDS: APRESOLINE PO SCH ×3 (08:22→16:27)
[2018-06-13] MEDS: FERROUS SULFATE PO SCH (08:22)
[2018-06-13] MEDS: PLAVIX PO SCH (08:22)
[2018-06-13] MEDS: LEXAPRO PO SCH (08:22)
[2018-06-13] MEDS: COLACE PO SCH (08:23)
[2018-06-13] MEDS: COZAAR PO SCH (08:23)
[2018-06-13 08:31] LABS: CALCIUM 9.3 mg/dL (8.8-10.2); POTASSIUM 3.8 mmol/L (3.5-5.1)
[2018-06-13 08:40] LABS: CREATININE 7.8 mg/dL (0.7-1.2)
[2018-06-13] MEDS ORDERED: NORVASC PO SCH (09:00)
--- NOTE | 2018-06-13 11:02 | EKG Report ---
Test Performed on : 06/13/2018 06:56:49 AM Test Reason : chest pain Blood Pressure : / mmHG Vent. Rate : 058 BPM Atrial Rate : 058 BPM P-R Int : 154 ms QRS Dur : 096 ms QT Int : 552 ms P-R-T Axes : 082 002 -51 degrees QTc Int : 541 ms Sinus bradycardia. Possible Left atrial enlargement Nonspecific T wave abnormality Prolonged QT Abnormal ECG When compared with ECG of 12-JUN-2018 19:09, (Unconfirmed) Nonspecific T wave abnormality, worse in Inferior leads Nonspecific T wave abnormality now evident in Anterior leads T wave inversion less evident in Lateral leads QT has lengthened Unconfirmed Result
--- NOTE | 2018-06-13 14:49 | CONSULTATION ---
DATE OF CONSULTATION: 06/13/2018 IMPRESSION: 1. Mild nonspecific elevation in troponin. Probably the product of acute congestive heart failure and chronic renal failure in setting of known atherosclerotic coronary disease. 2. Atherosclerotic coronary disease. The patient is status post coronary bypass grafting in November 2017 at [facility]. 3. End-stage renal disease requiring hemodialysis Wednesday, Wednesday, Wednesday. 4. Type 2 diabetes mellitus, long standing. 5. Hypertension. 6. Hyperlipidemia. RECOMMENDATIONS: 1. Continue medical management for the patient's coronary atherosclerosis. 2. The patient appears to have improved significantly following dialysis today and manifests no signs of volume overload. I think it is reasonable for him to be discharged soon and have follow up with his regular clinical informatics manager, Dr. Lind, as an outpatient. HISTORY: This 68-year-old, white male with past history of coronary bypass surgery in November 2017, end-stage renal disease requiring hemodialysis Wednesday, Wednesday, Wednesday, hypertension, type 2 diabetes mellitus, and hyperlipidemia, was admitted to the emergency room with dyspnea symptoms. He was found to be in congestive heart failure. He has had dialysis this morning and reports feeling back at baseline. Denies any shortness of breath. He has not had any recurrence of angina. He relates that he dialyzed on Wednesday. His adds that they raised his dry weight target on Wednesday and did not dialyze him as hard. He started having progressive shortness of breath over the weekend as well as orthopnea. He actually states that he never really had any chest discomfort with previous heart attacks in the past. He indicates that he is fairly well compliant with his dietary restrictions with respect to sodium intake. PAST MEDICAL HISTORY: 1. Atherosclerotic coronary disease with coronary bypass surgery November 2017, at [facility]. 2. End-stage renal disease requiring hemodialysis Wednesday, Wednesday and Wednesday. 3. Hypertension. 4. Type 2 diabetes mellitus. 5. Hyperlipidemia. PAST SURGICAL HISTORY: Includes 1. Right femoral to posterior tibial bypass performed by Dr. Bob Zhang in August 2017. 2. Right hip replacement. ALLERGIES: He has no known drug allergies. MEDICATIONS PRIOR TO ADMISSION: As listed. SOCIAL HISTORY: He is disabled. He is . He quit smoking 20 years ago. He does not use alcohol. FAMILY HISTORY: Positive for coronary disease. REVIEW OF SYSTEMS: Pulmonary: Noteworthy for dyspnea but negative for any significant cough. Gastrointestinal: Negative. Constitutional: Negative/noncontributory beyond history present illness. Remainder of review of systems negative/noncontributory beyond history present illness with 14 total systems reviewed. PHYSICAL EXAMINATION: General: This is a pleasant, thin older white male in no distress. Vital signs: Blood pressure 175/53, heart rate 60, oxygen saturation 99% on nasal cannula oxygen. HEENT: Extraocular movements intact. Mucous membranes moist. Neck: Supple. No jugular venous distention. There are no carotid bruits. Chest: Clear to auscultation bilaterally. Cardiac Exam: Reveals a regular rate and rhythm without appreciable murmur or gallop. Abdomen: Soft. Bowel sounds are normal. Extremities: Without edema. Neurologic: Reveals him to be alert and fully oriented. Speech is fluent. Moves all 4 extremities equally well. Skin: Warm and dry. Psychiatric: Reveals mood to be appropriate. DIAGNOSTIC DATA: A 12-lead EKG demonstrates sinus tachycardia, left atrial abnormality, nonspecific T-wave abnormality, and prolonged QT interval. LABORATORY DATA: Includes a white blood cell count of 6.79, hematocrit 27.6, hemoglobin 8.9, platelet count 279,000. Sodium 142, potassium 3.8, chloride 99, carbon dioxide 25, BUN 42, creatinine 7.8, glucose 118. Initial troponin-T 0.144, followup troponin-T 0.156. cc: Catalino Hilton MD
--- NOTE | 2018-06-13 15:20 | PROGRESS NOTE ---
DATE: 06/13/2018 SUBJECTIVE: At this moment this patient is not complaining of chest pain but it looks like he was complaining of pressure-like chest pain, his blood pressure is still elevated. I have increased the dose of the amlodipine from once to twice a day, I will continue with his home medications including hydralazine, losartan, metoprolol and again amlodipine. He received dialysis today. Hopefully the blood pressure will go down, we will monitor, pending Cardiology recommendations. OBJECTIVE: Vital Signs: Temperature 98.1 degrees, pulse 60, respiratory rate 18, blood pressure 186/56, oxygen saturation 99 on room air. HEENT: Head normocephalic. No trauma. PERRLA. Neck: Supple. No JVD. No masses. Central trachea. Chest: Clear to auscultation. No wheezing, no rales. Abdomen: Soft, nontender, nondistended. No hepatosplenomegaly. Extremities: No edema, no clubbing, no cyanosis. Neurologic: The patient is alert and oriented x3. No focal deficits, he has a AV fistula on the left arm. LABORATORY: WBC 6.7, hemoglobin 8.9, hematocrit 27.6, platelets 279,000, sodium 142, potassium 3.8, chloride 99, bicarbonate 25, BUN 42, creatinine 7.8, glucose 108, calcium 9.3. ASSESSMENT AND PLAN: 1. Chest pain, pressure like. Cardiology Department evaluated this patient. We will monitor for now. Blood pressure is still elevated. I have increased the dose of the amlodipine and I make sure that he is taking the rest of the home medications. 2. End-stage renal disease on hemodialysis Wednesday, Wednesday, and Wednesday status post dialysis today. We will continue to monitor. 3. Hypertension, uncontrolled. Like I mentioned before, I increased the dose of the amlodipine and I will continue to monitor, continue with the rest of his medications. 4. Peripheral vascular disease status post right femoral to posterior tibial bypass aware. 5. Diabetes mellitus type 2. I will ask for a hemoglobin A1c. 6. Hyperlipidemia. Continue with statins. 7. Disposition. This patient feels better, as per the patient cardiology department will not do any kind of procedure at this moment, I will keep an eye on this patient overnight because his blood pressure is still high. I increased the dose of amlodipine and I am making sure that this patient is on the rest of the blood pressure medication. Hopefully tomorrow this patient can be discharged home. cc: Armand Bolanos MD
[2018-06-13] MEDS: HUMULIN R SUBQ SCH ×2 (16:51→22:24)
--- NOTE | 2018-06-13 17:42 | NEPHROLOGY CONSULTATION ---
DATE: 06/13/2018 REASON FOR ADMISSION: Increased work of breathing. REASON FOR CONSULT: Assistance with medical management, ESRD. HISTORY OF PRESENT ILLNESS: Mr. Urrutia is a 68-year-old, white male, who is known to our outpatient services for hemodialysis on Wednesday, Wednesday, Wednesday at the [facility]. Patient is due for his dialysis today. He states that he has had increased work of breathing over the last several days. It had gotten worse yesterday into last night. He states his last dialysis treatment was on Wednesday. On Wednesday morning of last week, he did state that he did have some increased shortness of breath, had a slight chest pressure substernal that is in the same area as today. He does have a previous history of a recent CABG in 2018. He denies any associated aggravating symptoms. Denies any cough, fever or chills. No nausea, vomiting. No recent diarrhea. No exposure to any persons who have had the flu. In the emergency room, he was evaluated indicating a chest x-ray with left pleural effusions with bibasilar atelectasis. Doctor had thought that he was in fluid volume overload with need to have dialysis. He was subsequently kept for evaluation by cardiology and for dialysis today per his routine prescription in the hospital. PAST MEDICAL HISTORY: End-stage renal disease with hemodialysis on Wednesday, Wednesday, Wednesday at the [facility]. He has been on dialysis for greater than 5 years. Coronary artery disease with recent CABG surgery in 2018. Diabetes mellitus type 2, hypertension, hyperlipidemia, anemia of chronic disease, osteodystrophy of chronic disease. The patient is hypothyroid. PREVIOUS SURGICAL HISTORY: August 2017, right femur to posterior tibial bypass performed by Dr. Zhang. November 2017, [facility] with CABG with a triple bypass, cardiac rehab, followed by Dr. Lind. Recent echocardiogram done 3 months ago indicating an ejection fraction of 60-65%. He has had a right hip replacement, previous dialysis tunneled catheters and an AV fistula to the left upper arm. SOCIAL HISTORY: Quit smoking approximately 20 years ago. Denies any alcohol or illicit drug use. Has family who are attentive to his care. FAMILY HISTORY: Positive for coronary artery disease with mother, father and brothers. Negative for acute kidney injury or chronic kidney disease. ALLERGIES: Listed as no known drug allergies. HOME MEDICATIONS: Hytrin, calcium acetate, Lexapro, Lipitor, Levemir, Apresoline, Protonix, ferrous sulfate, Cozaar, docusate, levothyroxine, MiraLAX, enteric-coated aspirin low dose, metoprolol, Plavix, and Norvasc. REVIEW OF SYSTEMS: Times 10 with pertinent positives listed above in the HPI. VITAL SIGNS: Temperature 98.2, blood pressure 172/49, heart rate 61, respirations 18. He is currently on room air. Last recorded saturation is 96%. He has had 0 recorded in or out. LABS: Sodium 142, potassium 3.8, chloride 99, CO2 of 25, BUN 42, creatinine 7.8, glucose 118. Anion gap of 18. Calcium 9.3. Elevated troponins. He has a white count of 6.79, hemoglobin 8.9, hematocrit 27.6 with a platelet count of 279. His ProTime is 13.7, INR 0.97, PTT 33.5. BNP greater than 35,000. Chest x-ray shows left pleural effusions with bibasilar atelectasis. The patient had a chest CT showing bilateral pleural effusions, pulmonary edema and atelectasis. Constipation, COPD, and atherosclerosis. PHYSICAL EXAMINATION: General: This is a 68-year-old white male resting quietly in bed. He is in no acute distress. Skin: Warm and dry. HEENT: Normocephalic, atraumatic. Conjunctiva is pale. He has SOILA. Mucous membranes are dry. Neck: Supple. Trachea midline. No evidence of JVD in the upright position. Cardiovascular: Regular rate and rhythm. He is without murmur or gallop. Lungs: Clear to auscultation anteriorly. Equal excursion. Diminished breath sounds posterior base. He is currently on room air. Abdomen: Soft, nontender. Positive bowel sounds. Genitourinary: Not inspected. Minimal void with dialysis assist. Extremities: Have no edema. No clubbing or cyanosis. He has a fistula to the left upper arm with good palpable thrill. Neurological: Alert and oriented x3. ASSESSMENT AND PLAN: 1. Chronic kidney disease stage 5D. The patient is due for his routine dialysis treatment today. We will place him on a 3K bath. He is to dialyze for 3.5 hours. We will attempt to pull patient 1 L below his outpatient dry weight. 2. Electrolytes and acid-base balance. These are acceptable with correction on dialysis. 3. Anemia. This is low, but acceptable. 4. Increased work of breathing with chest discomfort. Cardiology has been consulted. I would like to thank you for allowing us to follow with this patient. Dictated by LUL Forbes for Horacio Pugh MD cc: LUL Forbes MD
[2018-06-13] MEDS ORDERED: SYNTHROID PO SCH (21:00)
[2018-06-13] MEDS ORDERED: LIPITOR PO SCH (21:00)
[2018-06-13] MEDS: NORVASC PO SCH (22:25)
[2018-06-14] MEDS: HEPARIN SUBQ SCH ×2 (01:22→14:52)
[2018-06-14] MEDS: PRILOSEC PO SCH (06:09)
[2018-06-14] MEDS: PHOSLO PO SCH ×3 (06:09→15:06)
[2018-06-14] MEDS: HUMULIN R SUBQ SCH ×2 (06:09→11:07)
[2018-06-14] MEDS: ASPIRIN EC PO SCH (09:22)
[2018-06-14] MEDS: COZAAR PO SCH (09:22)
[2018-06-14] MEDS: APRESOLINE PO SCH ×2 (09:22→15:06)
[2018-06-14] MEDS: LEXAPRO PO SCH (09:22)
[2018-06-14] MEDS: NORVASC PO SCH (09:23)
[2018-06-14] MEDS: PLAVIX PO SCH (09:23)
[2018-06-14] MEDS: LOPRESSOR PO SCH (09:23)
[2018-06-14] MEDS: FERROUS SULFATE PO SCH (09:23)
[2018-06-14] MEDS: COLACE PO SCH (09:23)
[2018-06-14 12:30] VITALS: BP 150/96
--- NOTE | 2018-06-14 20:34 | NEPHROLOGY PROGRESS NOTE ---
DATE: 06/14/2018 TIME SEEN: 9:15. SUBJECTIVE: Mr. Urrutia is sitting up in bed, states that he is well. He has just finished his breakfast. OBJECTIVE: Vital Signs: Temperature 98.4 degrees, blood pressure 179/59, heart rate 61, respirations 18. He is on room air. Last recorded saturation 92%. He has had 360 in, 4050 out with 4 L on dialysis. Labs: Previous hemoglobin of 8.9, previous potassium of 3.8, currently pending this a.m. Physical Examination: General: This is a 68-year-old white male resting quietly in bed. He appears chronically ill in no acute distress. Skin: Warm and dry. HEENT: Normocephalic, atraumatic. Conjunctivae are pale. He has SOILA. Mucous membranes are dry. Neck: Supple. Trachea midline. No JVD. Cardiovascular: Regular rate and rhythm without murmur or gallop. Lungs: Clear to auscultation anteriorly, equal excursion on room air. Abdomen: Soft, nontender. Positive bowel sounds. Genitourinary: Not inspected. Minimal void with dialysis assist. Extremities: Have no edema. No clubbing or cyanosis. Fistula is intact to the left upper arm with palpable thrill. Neurological: Alert and oriented x3. ASSESSMENT: 1. Chronic kidney disease stage 5D. The patient had his dialysis treatment yesterday, removal of 4 L after challenging his dry weight 1 kg below his last dialysis treatment weight. 2. Electrolytes and acid-base balance and anemia. These are all low but acceptable. 3. Increased work of breathing and chest discomfort. This has resolved status post dialysis treatment. PLAN: We will call the outpatient dialysis and let them know of his change in his dry weight. We have requested that he attempt not to try to raise his dry weight for a while until we can get the patient feeling better and dry. I would like to thank you for allowing us to follow with this patient. Dictated by LUL Forbes for Horacio Pugh MD cc: LUL Forbes MD
--- NOTE | 2018-06-14 21:10 | DISCHARGE SUMMARY ---
ADMISSION DATE: 06/13/2018 DISCHARGE DATE: 06/14/2018 ADMISSION DIAGNOSES: 1. Chest pain/chest discomfort. 2. End-stage renal disease, on hemodialysis. 3. Normocytic anemia. 4. Peripheral vascular disease, status post right nosijdu-vt-vfpdnqwcm-tibial bypass. 5. Hypertension. 6. Diabetes mellitus type 2. 7. Hyperlipidemia. DISCHARGE DIAGNOSES: 1. Chest pain/chest discomfort, resolved. Imaging on the x-ray showed a left pleural effusion. This is likely the cause of his chest pain. Cardiology was consulted. He is to continue with medical management, and the patient appeared to improve after dialysis. He is to follow up with Dr. Lind as an outpatient. 2. End-stage renal disease, on hemodialysis. Received hemodialysis with 1 L below his outpatient dry weight. 3. Normocytic anemia, stable. 4. Peripheral vascular disease, stable. No complaints of pain. 5. Hypertension. He was hypertensive on admission, and he is going to continue on Norvasc, Apresoline, Cozaar, and metoprolol. 6. Diabetes mellitus type 2. There was mention of a hemoglobin A1c to be checked, but it was not checked on this admission. Glucose levels mostly remained in the one-teens to 130s. 7. Hyperlipidemia, continued on statin. CONSULTATIONS: 1. Dr. Pugh with nephrology. 2. Dr. Hilton with Cardiology. SURGERIES/PROCEDURES: He had a hemodialysis during this stay. HOSPITAL COURSE: Mr. Danny Urrutia is a 68-year-old male with a medical history of CAD and CABG who presented to the ER with complaints of shortness of breath and chest discomfort. He receives hemodialysis on Mondays, Wednesdays, and Fridays. He went on Wednesday, and after dialysis he was breathing okay at that time. Wednesday morning he started having some shortness of breath with chest pressure and presented to the ER. On serial cardiac enzymes he had troponins that were all elevated but at baseline for him. He was seen by Dr. Hilton, who wanted to continue his medical treatment of his coronary artery disease. He was in fluid volume overload with a left pleural effusion, and his symptoms resolved after hemodialysis. It is appropriate for him to be discharged home. Vital signs are stable. Blood pressure is stable, and he will follow up with Dr. Salvador Lind, his primary security auditor, and continue his routine hemodialysis treatments. DISCHARGE VITAL SIGNS: Temperature 97.8, heart rate 58, respiratory rate 18, blood pressure 150/96, O2 saturation 96% on room air. DISCHARGE LABORATORY DATA: All performed on June 13. White blood cells 6000, hemoglobin 8, hematocrit 27, platelet count 279. Sodium 142, potassium 3.8, BUN 42, creatinine 7.8. Glucose 118, calcium 9.3. Last troponin was 0.156. PERTINENT IMAGING: Chest x-ray: left pleural effusion and basilar atelectasis. Chest CT: Bilateral pleural effusions, pulmonary edema and atelectasis. Possibility of pneumonia cannot be entirely excluded. Atherosclerosis, constipation, COPD. EKG: On June 12, normal sinus rhythm, rate 60, QTc 478. On June 13, rate 58, sinus bradycardia, QTc 541, prolonged QT. DISCHARGE MEDICATIONS: 1. Atorvastatin 40 mg nightly. 2. Hydralazine 50 mg p.o. t.i.d. 3. Aspirin enteric coated 81 mg p.o. daily. 4. Calcium acetate 1334 p.o. before meals. 5. Docusate sodium 100 mg p.o. daily. 6. Levemir 10 units subcutaneously nightly. 7. Synthroid 75 mcg p.o. nightly. 8. Lexapro 20 mg p.o. daily. 9. Metoprolol tartrate 50 mg p.o. twice daily. 10.MiraLAX 17 grams p.o. daily p.r.n. 11.Plavix 75 mg p.o. daily. 12.Protonix 40 mg p.o. daily. 13.Cozaar 50 mg p.o. twice daily. 14.Ferrous sulfate 325 mg p.o. daily. 15.Norvasc 5 mg p.o. twice daily. DIET: Diabetic/cardiac regular diet. ACTIVITY: As tolerated. FOLLOWUP: Appointment with Dr. Salvador Lind, his security auditor, on 07/15/2018 at 9 a.m. Then he will follow up with Dr. Pugh and continue his routine Fbuavq-Gsnmdjwaj-Xiflqw hemodialysis treatments. He is to follow up with his primary care provider Dr. Oral Mccollum. DISCHARGE INSTRUCTIONS: Continue medications as prescribed. Return if increased shortness of breath or chest pain. DISCHARGE DISPOSITION: Home. Dictated by LUL Reynolds for Michele Cyr MD Addendum: Patient seen and examined by myself. Agree with LUL note. It reflects my assessment and plan. Patient is being discharged from hospital in stable condition. Will be seen by [facility] and Direct Care Specialist as we mentioned above. cc: LUL Reynolds MD [facility]
== END 2018-06-14 15:40 | disposition home or self-care (01) | DRG 291 ==
LOC: ED 18:59 → 3N 19:00 → SUATTDRO 19:00 → UNDODISIN 06-13 21:02
PROVIDERS: ATTEND Internal Medicine
CPT/HCPCS: 71020; 71046; 71250; 80048; 80053; 82550; 82948; 83880; 84484; 85025; 85610; 85730; 93005; 93010; 93306; 96374; 97116; 97162; 97530; 99285; A9270; J0360; J1644; XXXXX

== ENCOUNTER 2019-03-22 11:20 | Inpatient (IN) ==
[2019-03-22 13:03] LABS: BASO# 0.02 X1000 (0.0-0.2); BASO% 0.4 % (0.0-0.8); EOS# 0.05 X1000 (0.0-0.7); HEMATOCRIT 37.9 % (42.0-52.0); HEMOGLOBIN 12.6 g/dL (14.0-18.0); LYMPH# 0.54 X1000 (1.2-3.4); LYMPH% 10.3 % (20.5-51.1); MCH 30.7 PG (27-31); MCHC 33.2 g/dL (33-37); MCV 92.2 FL (81-99); MONO# 0.41 X1000 (0.11-0.59); MONO% 7.8 % (1.7-9.3); MPV 10.1 FL (7.4-10.4); NEUT# 4.24 X1000 (1.4-6.5); NEUT% 80.5 % (42.2-75.2); PLT 180 X1000 (130-400); RBC 4.11 XMIL (4.7-6.1); RDW 15.3 % (11.5-14.5); WBC 5.26 X1000 (4.8-10.8)
[2019-03-22 13:20] LABS: INR 1.04; PROTIME 13.7 Seconds (11.0-16.0)
[2019-03-22 13:21] LABS: ALB/GLOB RATIO 1.3; ALBUMIN 3.9 g/dL (3.5-5.0); CALCIUM 9.6 mg/dL (8.8-10.2); CREATININE 3.5 mg/dL (0.7-1.2); POTASSIUM 3.8 mmol/L (3.5-5.1); PTT 31.8 Seconds (22.3-41.8); TOTAL BILIRUBIN 0.68 mg/dL (0.20-1.00)
--- NOTE | 2019-03-22 13:39 | Diag Imaging Result Doc PS360 ---
EXAM: CHEST-1 VIEW 03/22/2019 HISTORY: sepsis protocol TECHNIQUE: AP portable upright at 1246 COMMENT: There are sternotomy wires. The heart size and pulmonary vascularity are within normal limits. Compared to 07/04/2018 the opacities present in the right upper lobe and left lower lobe have resolved. IMPRESSION: No evidence of acute disease. Electronically signed by Mushtaq Vigil 03/22/2019 1:37 PM
--- NOTE | 2019-03-22 13:45 | Diag Imaging Result Doc PS360 ---
EXAM: CT ABDOMEN/PELVIS W/O CONTRAST 03/22/2019 HISTORY: no BM TECHNIQUE: This exam was performed using automated exposure control, adjustment of mA or kV according to patient size, and/or use of iterative reconstruction technique. COMMENT: The current study is compared with 07/01/2018. The pleural fluid collections which were present previously have resolved. There is ill-defined opacity in the posterior costophrenic sulcus of the right lower lobe which may be due to pneumonia. There is solid stool throughout the colon which was also the case on the previous study. The appendix is not distended or inflamed in appearance. There are polycystic kidneys. The right kidney measures 10.2 x 3.8 x 5.2 cm. The left kidney measures 9.7 x 5.7 x 6.4 cm. There are dense calcifications in the aorta and proximal superior mesenteric artery. There are also dense calcifications in the common iliac arteries. The small bowel is not distended. The pancreas is somewhat atrophic in appearance. The spleen and adrenal glands are not enlarged. There is retained fluid in the stomach. The liver is grossly normal in appearance and the absence of intravenous contrast in the gallbladder is not distended. There are no apparent stones. There is diverticulosis in the sigmoid colon where there is some solid stool. The prostate gland is somewhat enlarged measuring 5.3 x 4.1 cm in the axial plane. This is not changed appreciably since the previous study and the urinary bladder is not distended. There is no free fluid in the pelvis. There is a hydrocele in the right hemiscrotum. There has been right hip arthroplasty. There are spondylotic changes in the lumbar spine. IMPRESSION: 1. Right lower lobe pneumonia. 2. Constipation. Diverticulosis coli. 3. Polycystic kidneys. Other nonacute findings as described above. Electronically signed by Mushtaq Vigil 03/22/2019 1:43 PM
[2019-03-22] MEDS ORDERED: VANCOMYCIN 1 GM/NS 1 GM/250 ML IVPB IV ONE (14:40)
[2019-03-22] MEDS ORDERED: TAZIDIME 1 GM in NS 50 ML IV ONE (14:40)
--- NOTE | 2019-03-22 16:46 | PROVIDER DOCUMENTATION ---
This chart was entered by Chad Bolden Scribe, acting as scribe for Seferino Melendez MD. HPI-General Adult - General Chief Complaint: Abdominal Pain Stated Complaint: "BOWEL BLOCKAGE"? Time Seen by Provider: 03/22/19 12:22 Source: patient, family Allergies/Adverse Reactions: Patient Allergies Allergy/AdvReac Type Severity Reaction Status Date / Time No Known Allergies Allergy Verified 03/22/19 12:01 Home Medications: Home Medication List Medication Instructions Recorded Confirmed Last Taken Type Calcium Acetate 1,334 mg PO AC 06/01/16 03/22/19 03/22/19 History Escitalopram [Lexapro] 20 mg PO DAILY 06/01/16 03/22/19 03/18/19 History ATORVAstatin [Lipitor] 40 mg PO QHS 07/21/17 03/22/19 03/17/19 History Hydralazine [Apresoline] 50 mg PO TID 07/21/17 03/22/19 03/18/19 History Pantoprazole Sodium [Protonix] 40 mg PO DAILY 07/21/17 03/22/19 03/18/19 History Docusate Sodium 100 mg PO DAILY 10/25/17 03/22/19 03/18/19 History Levothyroxine Sodium 75 mcg PO HS 10/25/17 03/22/19 03/18/19 History Clopidogrel Bisulfate [Plavix] 75 mg PO DAILY 03/08/18 03/22/19 03/18/19 History Metoprolol Tartrate 50 mg PO BID 03/08/18 03/22/19 03/18/19 History Amlodipine [Norvasc] 5 mg PO BID #60 tab 06/14/18 03/22/19 03/18/19 Rx Losartan [Cozaar] 50 mg PO BID #60 tab 06/14/18 03/22/19 03/18/19 Rx Isosorbide Mononitrate E.r. [Imdur] 30 mg PO DAILY #90 tab 07/08/18 03/22/19 03/18/19 Rx Aspirin EC 1 dose PO DAILY 03/22/19 03/22/19 03/18/19 History Methoxy Peg-Epoetin Beta [Mircera] 1 dose IV DIRECTED 03/22/19 03/22/19 Un known History - History of Present Illness -Gen Adult Nature of Presenting Problems: 68 yom presents to the ed from dialysis(M,W,F). family states coming to the ed from dialysis little before 11 this morning. family states " want x-ray to see if have bowel blockage." family states n/v onset for 4-5 days. family states pt is weak and only ate piece of toast yesterday. family states last BM was least a week. family states fever at home 99. family pts had hiccups since open heart. Location of Pain/Injury: reports: none Pain Radiation: reports: no radiation Quality of Pain: reports: none Severity: reports: mild Onset/Duration: reports: 4 days ago, 5 days ago Timing: reports: still present Context/Activities at Onset: reports: none Modifying Factors: improves with: nothing Associated Symptoms: reports: fever/chills, nausea, vomiting, weakness. denies: chest pain, diarrhea, shortness of breath Similar Symptoms Previously?: No Recently seen or treated by another doctor?: No Review of Systems - Adult - REVIEW OF SYSTEMS - ADULT Constitutional: reports: see HPI, fever. denies: chills, night sweats Eyes: reports: no symptoms reported Ears, Nose, Mouth & Throat: denies: ear pain, nose pain, throat pain Cardiovascular: reports: no symptoms reported Respiratory: denies: shortness of breath, wheezing Gastrointestinal: reports: nausea, vomiting. denies: abdominal pain, constipat ion, diarrhea Genitourinary: reports: no symptoms reported Musculoskeletal: denies: back pain, neck pain Integumentary: reports: no symptoms reported Neurological: reports: no symptoms reported Psychiatric: reports: no symptoms reported Endocrine: reports: no symptoms reported Hematologic/Lymphatic: reports: no symptoms reported Allergic/Immunologic: reports: no symptoms reported All Other Systems: Reviewed and Negative Past History - Adult - PAST MEDICAL HISTORY-ADULT Review of Records: reports: Old Records Reviewed, Nursing Assessment Review, Medications Reviewed, Social history reviewed & non-contributory. Major Childhood Illnesses: reports: denies history Cardiovascular: reports: HTN, SD, PAD Respiratory: reports: COPD Gastrointestinal: reports: GERD, other (ISCHEMIC BOWEL; severe constipation) Obstetrical/Gynecological: reports: denies history Genitourinary: reports: dialysis (MWF), kidney disease Musculoskeletal: reports: denies history Neurological: reports: denies history Psychiatric: reports: denies history Endocrine/Immune: reports: Diabetes Other Conditions: reports: denies history - PRIOR SURGERIES/PROCEDURES Surgical/Procedure History: reports: reviewed, not pertinent, joint replacement - IMMUNIZATION STATUS Childhood Immunizations: See Nurse Assessment Flu Vaccine: See Nurse Assessment - FAMILY HISTORY Family History: reviewed, not pertinent - SOCIAL HISTORY Smoking: quit greater than 1 year, cigarettes Substance Use: denies Physical Exam-General - PHYSICAL EXAM-ADULT Initial Vital Signs Reviewed: Yes - CONSTITUTIONAL General Appearance: appears well, alert, mild distress - EYES Eyes: PERRL/EOMI - HEAD, EARS, NOSE, MOUTH & THROAT HENMT: pharynx normal - RESPIRATORY Respiratory: chest non-tender, normal breath sounds - CARDIOVASCULAR Cardiovascular: tachycardia (127), other (projection murmur 3/6) - GASTROINTESTINAL (ABDOMEN) Abdominal Exam: normal bowel sounds, non tender - GENITOURINARY Male Genitalia: deferred Rectal Exam: deferred Hemoccult Exam: deferred - PSYCHIATRIC Psych/Mental Status: normal mood/affect, normal thought content, normal thought process, oriented x 3 Progress - PLAN OF CARE/RESULTS Progress/Plan/Lab Results: Vital Signs - 8 hr 03/22/19 11:32 Temperature 99.3 F Pulse Rate 127 H Respiratory Rate 16 Blood Pressure 158/62 O2 Sat by Pulse Oximetry 97 Result Diagrams: 03/22/19 12:39 03/22/19 12:39 - XRAY 1 XRAY Study: Chest Impression: See EMR Report ( EXAM: CHEST-1 VIEW 03/22/2019 HISTORY: sepsis protocol TECHNIQUE: AP portable upright at 1246 COMMENT: There are sternotomy wires. The heart size and pulmonary vascularity are within normal limits. Compared to 07/04/2018 the opacities present in the right upper lobe and left lower lobe have resolved. IMPRESSION: No evidence of acute disease. Electronically signed by Mushtaq Vigil 03/22/2019 1:37 PM 03/22/19 0487 Interpreting Physician: Mushtaq Vigil MD Dictated Date/Time: 03/22/19 1335 cc: Seferino Melendez MD; Oarl Mccollum) - CT/MRI 1 CT Study: Abdomen, Pelvis Impression: See EMR Report ( EXAM: CT ABDOMEN/PELVIS W/O CONTRAST 03/22/2019 HISTORY: no BM TECHNIQUE: This exam was performed using automated exposure control, adjustment of mA or kV according to patient size, and/or use of iterative reconstruction technique. COMMENT: The current study is compared with 07/01/2018. The pleural fluid collections which were present previously have resolved. There is ill-defined opacity in the posterior costophrenic sulcus of the right lower lobe which may be due to pneumonia. There is solid stool throughout the colon which was also the case on the previous study. The appendix is not distended or inflamed in appearance. There are polycystic kidneys. The right kidney measures 10.2 x 3.8 x 5.2 cm. The left kidney measures 9.7 x 5.7 x 6.4 cm. There are dense calcifications in the aorta and proximal superior mesenteric artery. There are also dense calcifications in the common iliac arteries. The small bowel is not distended. The pancreas is somewhat atrophic in appearance. The spleen and adrenal glands are not enlarged. There is retained fluid in the stomach. The liver is grossly normal in appearance and the absence of intravenous contrast in the gallbladder is not distended. There are no apparent stones. There is diverticulosis in the sigmoid colon where there is some solid stool. The prostate gland is somewhat enlarged measuring 5.3 x 4.1 cm in the axial plane. This is not changed appreciably since the previous study and the urinary bladder is not distended. There is no free fluid in the pelvis. There is a hydrocele in the right hemiscrotum. There has been right hip arthroplasty. There are spondylotic changes in the lumbar spine. IMPRESSION: 1. Right lower lobe pneumonia. 2. Constipation. Diverticulosis coli. 3. Polycystic kidneys. Other nonacute findings as described above. Electronically signed by Mushtaq Vigil 03/22/2019 1:43 PM 03/22/19 1343 Interpreting Physician: Mushtaq Vigil MD Dictated Date/Time: 03/22/19 1337 cc: Seferino Melendez MD; Oral Mccollum MD) - CONSULTS/PCP/HOSPITALIST Notification #1 *Consult/PCP/Hospitalist*: consult w/ Dr. Lin Time Discussed: 15:38 (accepted by Dr. Barahona) Consult Disposition: Admit Departure - Departure Date of Disposition Decision: 03/22/19 Time of Disposition Decision: 15:40 DIAGNOSIS: Right lower lobe pneumonia, Chronic renal failure, stage 5 Disposition: ADMITTED INPATIENT 09 Certified Medical Emergency: Emergent Condition: Good Referrals and Follow-Ups: Oral Mccollum MD [Primary Care Provider] - - Critical Care Note This patient required my direct & personal management of CC.: No Attestation - Physician/ SONYA Attestation Patient care was provided by Advanced Practice Provider:: No The physician spent face to face time with patient:: Yes Advanced Practice Provider documentation review:: Supervising physician onsite and consulted in the evaluation and care of this patient. The physician did have a face to face encounter with the patient. This chart was documented by the indicated scribe, (Chad Bolden, [place]) and accurately reflects the services I performed and decisions made by me, Seferino Melendez MD, as attested by the provider's signature.
--- NOTE | 2019-03-22 16:53 | HISTORY AND PHYSICAL ---
HISTORY: Apparently, he says he has been nauseous since Wednesday. He has not eaten or drank much. Feels kind of weak. He denies abdominal pain. Says he usually does not have a bowel movement but once a week and it has probably been a week since he has had a bowel movement. He was sent over here by dialysis. They found a left lower lobe infiltrate so I am going to admit for pneumonia and for nausea. I see where he was admitted last in June 2018. At that time, he had a pulmonary angiogram and no pulmonary embolism, cardiomegaly, pulmonary edema, bilateral pleural effusions are appreciated at that time. Cardiology has evaluated him. PAST MEDICAL HISTORY: 1. Coronary artery disease. He has had 2 heart attacks I believe. He had bypass grafting November 2017 at [facility]. Left ventricular ejection fraction was normal by recent echocardiogram. 2. End-stage renal disease requiring hemodialysis Wednesday, Wednesdays and Fridays. 3. Hypertension. 4. Diabetes mellitus type 2. 5. Hyperlipidemia. PAST SURGICAL HISTORY: 1. Right femoral and posterior tibial bypass performed by Dr. Bob Zhang in August 2017. 2. He has had right hip replacement. ALLERGIES: No known drug allergies. FAMILY HISTORY: Positive for coronary artery disease. SOCIAL HISTORY: Disabled from previous work. Used to be a banker. He is . Smoked 20 years ago. Previously smoked 2 packs a day, quit 20 years ago. He does not use any alcohol. REVIEW OF SYSTEMS: General: No weight gain or loss. No fever or chills he is aware of. HEENT: No change in visual or hearing acuity. Respiratory: No increased work of breathing or dyspnea. Cardiovascular: No chest pain or tachy palpitation. Gastrointestinal: Nausea reported. Denies any abdominal pain. Genitourinary: He has not had a bowel movement in several days. Not sure how long, but is not unusual for him to have just 1 bowel movement a week. He does not feel like he is constipated. No gross hematuria. He has end-stage renal disease and is on dialysis. Musculoskeletal/Neurologic: No significant complaints. Endocrinologic/Hematologic: No significant history. PHYSICAL EXAMINATION: VITAL SIGNS: Remains afebrile, temperature 99.3 degrees, pulse 84, respirations 22, blood pressure 195/77. HEENT: Pupils are equal and round. LUNGS: Clear in all lung ramirez. CARDIOVASCULAR: Regular rhythm and rate without murmur or S3. ABDOMEN: Soft, nondistended, and nontender. EXTREMITIES: Without clubbing, cyanosis, or edema. Weight 130 pounds, height 5 feet 7 inches. SKIN: Warm and dry. Oral and nasal mucosa unremarkable. LABORATORY DATA: White count 5260, hematocrit is 37, platelet count is 180,000. Sodium 137, potassium 3.8, chloride 92, BUN 13, creatinine 3.5, blood sugars 123, calcium is 9.6, AST is 68, ALT is 65, alkaline phosphatase 195. Troponin was 0.0127. His chest x-ray shows no evidence of acute disease. His CT of his abdomen and pelvis, there is a right lower lobe infiltrate, constipation, diverticulosis coli, polycystic kidney disease. ASSESSMENT AND PLAN: 1. Right lower lobe infiltrate. It is consistent with lobar pneumonia, community-acquired. He is not allergic to anything. We will treat him with ceftriaxone 1 g daily q.24 hours. 2. Nausea. I am not sure whether this is related to the pneumonia. He does not appear to have abdominal tenderness. I do not see evidence of peritonitis or significant ascites at this point. His transaminases are a little elevated. We will give him some antiemetics. 3. Chronic kidney disease stage 5D. He is on hemodialysis. His volume status and electrolytes look pretty good. His acid-base status looks good as well. 4. Chronic anemia, actually pretty good on that rate. His hematocrit is 37, hemoglobin 12.6. 5. History of coronary artery disease. No sign of active ischemia. 6. He has had a history of constipation, has not had a bowel movement in a while and his chest x- ray and abdominal and pelvic CT shows some constipation so we may give him some MiraLAX and we will give him just a little bit of fluids at this time. I will give him normal saline at 45 mL an hour. He is already on Colace 100 mg daily. 7. History of hypothyroidism. Continue his levothyroxine 70 mcg at bedtime. 8. History of hypertension. Continue his blood pressure medications, Cozaar 50 mg b.i.d., amlodipine 5 mg b.i.d., and metoprolol 40 mg. cc: Brian Barahona MD
[2019-03-22] MEDS ORDERED: TYLENOL PO PRN (17:21)
[2019-03-22] MEDS ORDERED: [UNRECOGNIZED DRUG - OTHER] IV SCH (17:21)
[2019-03-22] MEDS: APRESOLINE PO SCH (18:35)
[2019-03-22] MEDS: ZOFRAN IV PRN (18:36)
[2019-03-22] MEDS: NS 1,000 ML IV SCH (18:38)
[2019-03-22] MEDS: ZITHROMAX 500 MG/NS 500 MG/250 ML IVPB IV SCH (18:40)
[2019-03-22] MEDS: MIRALAX PO SCH (18:44)
[2019-03-22] MEDS: DUONEB (A & A) INH SCH ×2 (19:45→22:51)
[2019-03-22] MEDS: ROCEPHIN 1 GM in NS 50 ML IV SCH (23:11)
[2019-03-22] MEDS: LOPRESSOR PO SCH (23:12)
[2019-03-22] MEDS: SYNTHROID PO SCH (23:12)
[2019-03-22] MEDS: NORVASC PO SCH (23:12)
[2019-03-22] MEDS: LIPITOR PO SCH (23:12)
[2019-03-22] MEDS: COZAAR PO SCH (23:12)
[2019-03-23] MEDS: DUONEB (A & A) INH SCH ×6 (03:12→23:36)
[2019-03-23 05:18] LABS: BASO# 0.03 X1000 (0.0-0.2); BASO% 0.6 % (0.0-0.8); EOS# 0.14 X1000 (0.0-0.7); HEMOGLOBIN 10.9 g/dL (14.0-18.0); LYMPH# 0.74 X1000 (1.2-3.4); LYMPH% 15.8 % (20.5-51.1); MCH 30.8 PG (27-31); MCV 93.2 FL (81-99); MONO# 0.57 X1000 (0.11-0.59); MONO% 12.2 % (1.7-9.3); MPV 10.1 FL (7.4-10.4); NEUT% 68.4 % (42.2-75.2); PLT 173 X1000 (130-400); RBC 3.54 XMIL (4.7-6.1); RDW 15.1 % (11.5-14.5); WBC 4.68 X1000 (4.8-10.8)
[2019-03-23 05:47] LABS: CREATININE 5.3 mg/dL (0.7-1.2); POTASSIUM 3.7 mmol/L (3.5-5.1)
[2019-03-23] MEDS: PHOSLO PO SCH ×3 (06:55→16:59)
[2019-03-23] MEDS: PROTONIX PO SCH (06:55)
[2019-03-23] MEDS: COLACE PO SCH (09:27)
[2019-03-23] MEDS: LEXAPRO PO SCH (09:27)
[2019-03-23] MEDS: LOPRESSOR PO SCH ×2 (09:27→21:02)
[2019-03-23] MEDS: MIRALAX PO SCH (09:27)
[2019-03-23] MEDS: COZAAR PO SCH ×2 (09:27→21:02)
[2019-03-23] MEDS: NORVASC PO SCH ×2 (09:27→21:02)
[2019-03-23] MEDS: PLAVIX PO SCH (09:27)
[2019-03-23] MEDS: APRESOLINE PO SCH ×3 (09:27→16:59)
[2019-03-23] MEDS: IMDUR PO SCH (09:27)
[2019-03-23] MEDS: ASPIRIN EC PO SCH (09:27)
[2019-03-23] MEDS: ZOFRAN IV PRN ×2 (11:48→16:25)
--- NOTE | 2019-03-23 12:57 | PROGRESS NOTE ---
DATE: 03/23/2019 SUBJECTIVE: Mr. Urrutia was admitted yesterday. He is a patient of Dr. Oral Mccollum. He has had nausea since Wednesday, not eating or drinking much. Denied any abdominal pain but came in and appeared to have a left lower lobe infiltrate. He reports his nausea is better. He is eating better today. OBJECTIVE: Vital Signs: Temperature 97.9 degrees, pulse 74, respirations 19, blood pressure 188/63. HEENT: Pupils are equal and round. Lungs: Clear in all lung ramirez. Cardiovascular: Regular rhythm and rate without murmur or S3. Abdomen: Soft. Skin: Warm and dry. ASSESSMENT AND PLAN: 1. Right lower lobe infiltrate consistent with pneumonia, community-acquired. Continue present antibiotics. He looks better. 2. Nausea seems to have resolved. 3. Chronic kidney disease stage 5D. He is on hemodialysis, volume status electrolytes acid-base look good. 4. Chronic anemia appears stable. Hematocrit is 37. Hemoglobin 12.6. 5. History of coronary artery disease. No sign of active ischemia. 6. History of constipation. He has not had a bowel movement about a week, so we have him on a bowel regimen. CT scan shows some constipation. 7. History of hypothyroidism. He is on levothyroxine. 8. History of hypertension. Blood pressure appears well controlled. He is on Cozaar 50 mg twice a day, amlodipine 5 mg twice a day. Blood pressure systolic still running around 180. He is on isosorbide mononitrate 30 mg a day, metoprolol 50 mg b.i.d. I may go up on his amlodipine. We will see how his blood pressures do. cc: Brian Barahona MD
[2019-03-23] MEDS ORDERED: THORAZINE PO PRN (15:08)
--- NOTE | 2019-03-23 15:08 | PROVIDER PROGRESS NOTE ---
Progress Note Chief complaint: Miriam been nauseous. HPI: mr. Urrutia is a 68-year-old white male with a past medical history of chronic kidney disease stage by D with hemodialysis on Wednesday, Wednesday, and Fridays, hypertension, coronary artery disease, and diabetes Mellitus type two. He has complaints of nausea, hiccups, and weakness since this past Wednesday. He denies fever, chills, chest pain, shortness of breath, or hematuria. He was sent here after his hemodialysis treatment Wednesday by the dialysis nurse. When he arrived he had a low-grade fever and his abdomen and pelvis CT showed right lower lobe pneumonia, constipation, and polycystic kidneys. He is receiving Rocephin, antiemetics, and MiraLAX. Past medical history: coronary artery disease, chronic kidney disease stage 5D, hypertension, diabetes mellitus type two, hyperlipidemia. Past surgical history: right femoral and posterior tibial bypass, right hip replacement Social history: lives at home with his . He denies any tobacco, alcohol, or illicit drug use. Family history: father positive for coronary artery disease. Allergies: no known Home medications: Norvasc, aspirin, Lipitor, calcium acetate, Plavix, Colace, Lexapro, hydralazine, Imdur, levothyroxine sodium, losartan, metoprolol tartrate, protonix, mircera. Review of systems: All pertinent positives listed above in the HPI Labs: Wbc 4.68, hemoglobin 10.9, hematocrit 33, platelet count 173, sodium 132, potassium 3.7, chloride 90, carbon dioxide 23, BUN 25, creatinine 5.3. Imaging: CT abdomen/pelvis without contrast impression right lower lobe pneumonia, constipation, polycystic kidneys. Physical exam: temperature 98.9, pulse 66, respirations 16, blood pressure 186/52, 02 sat 93% on room air. Assessment and plan: Chronic kidney disease stage 5D. He will receive his routine hemodialysis tomorrow. No changes. Nausea. He is receiving antiemetics and has not been nauseated since last night. Persistent hiccups. Will order chlorpromazine prn. rg Acid base balance, electrolytes, and anemia. Stable. Fluid volume. Euvolemic on exam. Stop IV fluids. rg Medication review. No changes.
[2019-03-23] MEDS: NS 1,000 ML IV SCH (16:29)
[2019-03-23] MEDS: ZITHROMAX 500 MG/NS 500 MG/250 ML IVPB IV SCH (17:00)
[2019-03-23] MEDS: LIPITOR PO SCH (21:02)
[2019-03-23] MEDS: ROCEPHIN 1 GM in NS 50 ML IV SCH (21:02)
[2019-03-23] MEDS: SYNTHROID PO SCH (21:02)
[2019-03-24] MEDS: DUONEB (A & A) INH SCH ×4 (02:54→15:33)
[2019-03-24] MEDS: PHOSLO PO SCH ×4 (05:56→16:21)
[2019-03-24] MEDS: PROTONIX PO SCH ×2 (05:57→06:35)
[2019-03-24] MEDS ORDERED: TIGHT: 0.2 ML/HR FOR DIALYSIS MISC PRN (06:49)
[2019-03-24] MEDS ORDERED: NS 2,000 ML MISC PRN (06:49)
[2019-03-24] MEDS ORDERED: HEPARIN IV PRN (06:49)
[2019-03-24 12:25] VITALS: BP 150/53
[2019-03-24] MEDS: APRESOLINE PO SCH ×3 (14:26→16:21)
[2019-03-24] MEDS: ASPIRIN EC PO SCH (14:30)
[2019-03-24] MEDS: COLACE PO SCH (14:30)
[2019-03-24] MEDS: IMDUR PO SCH (14:31)
[2019-03-24] MEDS: COZAAR PO SCH (14:31)
[2019-03-24] MEDS: LEXAPRO PO SCH (14:32)
[2019-03-24] MEDS: LOPRESSOR PO SCH (14:32)
[2019-03-24] MEDS: MIRALAX PO SCH (14:32)
[2019-03-24] MEDS: NORVASC PO SCH (14:33)
[2019-03-24] MEDS: PLAVIX PO SCH (14:33)
--- NOTE | 2019-03-24 15:28 | DISCHARGE SUMMARY ---
ADMISSION DATE: 03/22/2019 DISCHARGE DATE: 03/24/2019 HISTORY: He is a patient of Dr. Mccollum. He was nauseated since Wednesday. He has not eaten or drank much. Feels very weak. Denied any abdominal pain. Usually does not have a bowel movement but about once a week. He was sent over here by dialysis and they found a left lower lobe infiltrate and concern about pneumonia. I saw where he was admitted back in June here at this hospital in 2018. He had pulmonary angiogram, pulmonary embolism, cardiomegaly, pulmonary edema, bilateral pleural effusions. PAST MEDICAL HISTORY: 1. Coronary artery disease. He has had 2 heart attacks. I think he has had bypass graft back in November [address] [facility]. Left ventricular ejection fraction was normal at that time. 2. End-stage renal disease on hemodialysis Wednesday, Wednesday, and Fridays. 3. Hypertension. 4. Diabetes mellitus type 2. 5. Hyperlipidemia. PAST SURGICAL HISTORY: 1. Right femoral and posterior tibial bypass performed per Dr. Bob Zhang, August 2017. 2. He has had right hip replacement in the past. HOSPITAL COURSE: So admitted with right lower lobe infiltrate, questionable pneumonia, but treated with ceftriaxone. His cultures were negative. Follow up chest x-ray with no evidence of infiltrate, so volume status was doing better. He complained of nausea and I suspect some gastritis, so we will discharge him home. DISCHARGE ORDERS: 1. Norvasc 5 mg b.i.d. 2. Aspirin 325 mg a day. 3. Lipitor 40 mg a day. 4. PhosLo 1334 mg p.o. before meals. 5. Thorazine, we will let him have a prescription in case. He can take up to 50 mg q.4 hours. 6. Plavix 75 mg a day. 7. Colace 100 mg a day. 8. Lexapro 20 mg a day. 9. Apresoline 50 mg 3 times a day. 10. Imdur 30 mg a day. 11. Synthroid 75 mcg a day. 12. Cozaar 50 mg b.i.d. 13. Lopressor 50 mg b.i.d. 14. Protonix 40 mg daily. 15. MiraLAX 17 g daily. cc: Brian Barahona MD
--- NOTE | 2019-03-24 21:21 | NEPHROLOGY PROGRESS NOTE ---
DATE: 03/24/2019 SUBJECTIVE: Patient currently undergoing hemodialysis. He has continued with nausea. OBJECTIVE: Vital signs: Temperature 98.3 degrees, pulse 71, respiratory rate 19, blood pressure 128/67. Intake 1.4 L, output not measured.General: Elderly gentleman resting in bed, undergoing dialysis. No acute distress. HEENT: Normocephalic, atraumatic. SOILA. Neck supple. No JVD. Cardiovascular: Regular rate and rhythm. Pulmonary: Clear bilaterally. Abdomen soft. Positive bowel sounds. No tenderness. : Santiago catheter. Extremities: No clubbing, cyanosis or edema. Integumentary: Skin warm and dry. LABORATORY DATA: None today. ASSESSMENT AND PLAN: 1. Chronic kidney disease 5D. Today is his routine dialysis day. He is on a 2 K bath, ultrafiltration to dry weight, 4-hour treatment. 2. Acid base, electrolytes, anemia. See #1 for plan. 3. Fluid volume. We will dialyze, ultrafiltration to his dry weight. 4. Hypertension. His medications have been adjusted. 5. Right lower lobe pneumonia. No changes to current antibiotic therapy. Dictated by LUL Gracia for Horacio Pugh MD cc: Horacio Pugh MD
== END 2019-03-24 16:26 | disposition home or self-care (01) | DRG 193 ==
LOC: ED 11:20 → EDIPHOLD 17:22 → 1N 21:44
PROVIDERS: ATTEND Emergency Medicine